=== PATIENT | female | born 1960 | race African-American/Black ===

== ENCOUNTER 2016-08-14 15:27 | Inpatient (IN) | payer OTHER ==
[~2016-08-14] VITALS: Ht 180.3 cm; Wt 69.9 kg
[~2016-08-14 15:27] MED LIST: ALPR0.5T PO; ALPR0.5T6 PO; AMLO10TA2 PO; AMLO5TAB2 PO; AMLO5TAB4 PO; AMOX500T PO; ASPI-482 PO; ATOR20TA PO; BISM262O20 PO; CALC-74 PO; CARV25TA2 PO; DIPH25CA49 PO; FLUC200T PO; GABA300C8 PO; HYDR-2678 PO; HYDR-2762 PO; HYDR100T24 PO; LABE200T24 PO; LOSA25TA4 PO; LOSA50TA2 PO; METO-269 PO; MORP30TA83 PO; OMEP20CA9 PO; OMEP20TA63 PO; OXYC-323 PO; OXYC15TA PO; OXYC15TA60 PO; PANT40TA3 PO; SERT50TA PO; TOPI25TA52 PO; WARF-78 PO; WARF1TAB74 PO; WARF2.5T83 PO; WARF3TAB7 PO; WARF5TAB7 PO; WARF7.5T48 PO
[2016-08-14 16:13] LABS: BASO # 0.1 x10^3/uL (0.0-0.2); BASO % 1 % (0-3); EOS % 2 % (0-3); HEMATOCRIT 35.6 % (36.0-47.0); HEMOGLOBIN 11.6 g/dL (12.0-15.5); LYMPH # 2.2 x10^3/uL (1.0-4.8); LYMPH % 40 % (24-48); MEAN CORPUSCULAR HEMOGLOBIN 29 pg (25-35); MEAN CORPUSCULAR HGB CONC 32 g/dL (31-37); MEAN CORPUSCULAR VOLUME 90 fL (79-100); MONO % 10 % (0-9); NEUT % 47 % (31-73); PLATELET COUNT 256 x10^3/uL (140-400); RED BLOOD COUNT 3.97 x10^6/uL (3.50-5.40); RED CELL DISTRIBUTION WIDTH 15.2 % (11.5-14.5); WHITE BLOOD COUNT 5.5 x10^3/uL (4.0-11.0)
--- NOTE | 2016-08-14 16:17 | RAD ---
Indication nontraumatic chest pain. A single view of the chest was obtained. Comparison is made to an examination 12/31/2015. Note is made of angiography of the chest 12/31/2015. Postoperative changes associated with the aorta are noted. 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 There is no congestive heart failure. There is no acute parenchymal infiltrate significant pleural fluid collection or pneumothorax. There has not been a significant change in the appearance of the chest compared to the previous exam. IMPRESSION: Chronic changes. No acute finding. No significant change
[2016-08-14 16:22] LABS: INR 1.7 (0.8-1.1); PROTHROMBIN TIME PATIENT 18.7 SEC (11.7-14.0)
[2016-08-14 16:26] LABS: CALCIUM 10.5 mg/dL (8.5-10.1); CREATININE 1.1 mg/dL (0.6-1.0); GFR 62.4; POTASSIUM 3.1 mmol/L (3.5-5.1)
[2016-08-14] MEDS: fentaNYL PF VIAL 100 MCG/2 ML VIAL IV PRN ×2 (16:47→19:46)
[2016-08-14] MEDS ORDERED: IOHEXOL 350 MG/ML 100 ML VIAL. ONE (17:42)
[2016-08-14] MEDS ORDERED: CONTRAST GIVEN MC PRN (17:45)
--- NOTE | 2016-08-14 17:57 | PHYS DOC ---
Past Medical History Past Medical History: Anemia, Anxiety, Arthritis, CAD, COPD, GERD, High Cholesterol, Heart Disease, Hypertension, Other Additional Past Medical Histor: AAA, mechanical heart valve,bulge disc(back), chronic back Past Surgical History: Hysterectomy, Other Additional Past Surgical Histo: mechanical valve,AAA repair 11/2013 Alcohol Use: None Drug Use: None Adult General Chief Complaint Chief Complaint: CHEST PAIN HPI HPI Patient is a 56 year old female who presents with left sided stabbing chest pain radiating to her left shoulder associated with some lightheadedness and nausea. States she also has a gradual onset headache that is mild and general. She denies vision changes, numbness, tingling, focal weakness, vomiting, fever or chills, cough, dyspnea, leg pain or swelling, palpitations, diaphoresis, orthopnea, abdominal pain, dysuria, hematuria, back pain. Review of Systems Review of Systems Constitutional: Denies fever or chills [] Eyes: Denies change in visual acuity, redness, or eye pain [] HENT: Denies nasal congestion or sore throat [] Respiratory: Denies cough or shortness of breath [] Cardiovascular: No additional information not addressed in HPI [] GI: Denies abdominal pain, vomiting, bloody stools or diarrhea [] : Denies dysuria or hematuria [] Musculoskeletal: Denies back pain or joint pain [] Integument: Denies rash or skin lesions [] Neurologic: Denies focal weakness or sensory changes [] Endocrine: Denies polyuria or polydipsia [] Current Medications Current Medications Current Medications Medications (Trade) Dose Ordered Sig/[facility] Start Time Stop Time Status Last Admin Dose Admin Fentanyl Citrate (Fentanyl 2ml Vial) 50 mcg PRN Q15MIN PRN 08/14/16 16:00 08/14/16 20:00 DC 08/14/16 19:46 50 MCG Info (Do NOT chart on this entry -- for MONITORING) 1 each PRN DAILY PRN 08/14/16 17:45 08/16/16 17:44 Iohexol (Omnipaque 350 Mg/ml) 100 ml STK-MED ONCE 08/14/16 17:42 08/14/16 17:43 DC Potassium Chloride (Klor-Con) 40 meq 1X ONCE 08/14/16 19:00 08/14/16 19:01 DC 08/14/16 19:08 40 MEQ Allergies Allergies Allergies Coded Allergies Type Severity Reaction Last Updated Verified No Known Drug Allergies 12/10/13 No Physical Exam Physical Exam Constitutional: Well developed, well nourished, no acute distress, non-toxic appearance. [] HENT: Normocephalic, atraumatic, bilateral external ears normal, oropharynx moist, no oral exudates, nose normal. [] Eyes: PERRLA, EOMI. [] Neck: Normal range of motion, supple. [] Cardiovascular:Heart rate regular rhythm [] Lungs & Thorax: Bilateral breath sounds clear to auscultation. No chest wall tenderness [] Abdomen: Bowel sounds normal, soft, no tenderness. [] Skin: Warm, dry, no erythema, no rash. [] Back: No tenderness, no CVA tenderness. [] Extremities: No tenderness, ROM intact, no edema. [] Neurologic: Alert and oriented X 3, normal motor function, normal sensory function, no focal deficits noted. [] Psychologic: Affect normal, judgement normal, mood normal. [] Current Patient Data Vital Signs Vital Signs Date Time Temp Pulse Resp B/P (MAP) Pulse Ox O2 Delivery O2 Flow Rate FiO2 08/14/16 16:47 66 18 151/78 (102) 98 Room Air 08/14/16 15:46 98.7 98.7 Lab Values Laboratory Tests Test 08/14/16 16:00 White Blood Count 5.5 x10^3/uL (4.0-11.0) Red Blood Count 3.97 x10^6/uL (3.50-5.40) Hemoglobin 11.6 g/dL (12.0-15.5) L Hematocrit 35.6 % (36.0-47.0) L Mean Corpuscular Volume 90 fL (79-100) Mean Corpuscular Hemoglobin 29 pg (25-35) Mean Corpuscular Hemoglobin Concent 32 g/dL (31-37) Red Cell Distribution Width 15.2 % (11.5-14.5) H Platelet Count 256 x10^3/uL (140-400) Neutrophils (%) (Auto) 47 % (31-73) Lymphocytes (%) (Auto) 40 % (24-48) Monocytes (%) (Auto) 10 % (0-9) H Eosinophils (%) (Auto) 2 % (0-3) Basophils (%) (Auto) 1 % (0-3) Neutrophils # (Auto) 2.6 x10^3uL (1.8-7.7) Lymphocytes # (Auto) 2.2 x10^3/uL (1.0-4.8) Monocytes # (Auto) 0.6 x10^3/uL (0.0-1.1) Eosinophils # (Auto) 0.1 x10^3/uL (0.0-0.7) Basophils # (Auto) 0.1 x10^3/uL (0.0-0.2) Prothrombin Time 18.7 SEC (11.7-14.0) H Prothrombin Time INR 1.7 (0.8-1.1) H Sodium Level 142 mmol/L (136-145) Potassium Level 3.1 mmol/L (3.5-5.1) L Chloride Level 105 mmol/L (98-107) Carbon Dioxide Level 30 mmol/L (21-32) Anion Gap 7 (6-14) Blood Urea Nitrogen 10 mg/dL (7-20) Creatinine 1.1 mg/dL (0.6-1.0) H Estimated GFR (Cockcroft-Gault) 62.4 Glucose Level 114 mg/dL (70-99) H Calcium Level 10.5 mg/dL (8.5-10.1) H Troponin I Quantitative < 0.017 ng/mL (0.000-0.055) KJ-Owl-I-Type Natriuretic Peptide 814 pg/mL (0-124) H Laboratory Tests 08/14/16 16:00 Laboratory Tests 08/14/16 16:00 EKG EKG EKG as interpreted by me as normal sinus rhythm, rate 80, no ST-T changes, normal intervals, no ectopy Radiology/Procedures Radiology/Procedures Chest xray as interpreted by me with no acute cardiopulmonary disease process CT angiogram chest IMPRESSION: No change in size or appearance of the [place] a aortic dissection when compared to the previous exam from 12/31/2015. CT angiogram of abdomen and pelvis IMPRESSION: Unchanged size and appearance of the abdominal aortic dissection when compared to the previous exam from 12/31/2015. Diffuse fatty infiltration of the liver. No ascites or inflammatory mass. Electronically signed by: Stan Mckenna MD (08/14/2016 6:43 PM) Course & Med Decision Making Course & Med Decision Making Pertinent Labs and Imaging studies reviewed. (See chart for details) Workup is largely unremarkable other than subtherapeutic INR and positive UDS. Will admit for ACS rule out. Discussed case with Dr. Fletcher, who will admit under observation. Cardiology consultation placed. Jaky Disclaimer Dragon Disclaimer This electronic medical record was generated, in whole or in part, using a voice recognition dictation system. Departure Departure Impression: Primary Impression: Chest pain Additional Impressions: Subtherapeutic international normalized ratio (INR) Substance abuse Disposition: ADMITTED INPATIENT Condition: STABLE Referrals: TARYN GALAVIZ MD (PCP) Problem Qualifiers Primary Impression: Chest pain Chest pain type: unspecified Qualified Codes: R07.9 - Chest pain, unspecified Charlotte ALMENDAREZ MD Aug 14, 2016 17:57
[2016-08-14] MEDS ORDERED: IOHEXOL 350 MG/ML 100 ML VIAL. IV ONE (18:00)
--- NOTE | 2016-08-14 18:46 | RAD ---
PQRS STATEMENT: One or more of the following in the visualized dose reduction techniques were utilized for this study: 1. Automatic exposure control, 2. Adjustment of the mA and/or kV according to patient size, 3. Use of iterative reconstruction technique CT angiogram of the chest Indication: chest pain; h/o dissection; Omni 350, 90ml Comparison: 12/31/2015 CT angiogram of the chest Technique: Multiple contiguous axial images were obtained through the chest after administration of iodinated contrast. Coronal and sagittal MIP reformations were created. Findings: There is no change in size or appearance of the [place] a aortic dissection when compared to the previous exam from 12/31/2015. There are postsurgical changes at the proximal aspect of the dissection which is just proximal to the origin of the brachiocephalic artery. The dissection does extend into all 3 great vessels which is unchanged. The descending thoracic aorta is ectatic. There is no pericardial effusion. Valve prosthesis is in place. No pneumothorax or pleural effusion. No consolidation. IMPRESSION: No change in size or appearance of the [place] a aortic dissection when compared to the previous exam from 12/31/2015. End impression CTA ABDOMEN/PELVIS Indication: chest pain; h/o dissection; Omni 350, 90ml Technique: Multiple contiguous axial images were obtained through the abdomen and pelvis after administration of intravenous iodinated contrast. Coronal and sagittal MIP reformations were created. Comparison: 12/31/2015 Findings: There is no change in size or appearance of the abdominal aortic dissection. The dissection is again noted to extend into the superior mesenteric artery which is predominantly fed by the false lumen. The true lumen appears to feed the celiac. The true lumen also supplies the right renal artery corrected is indeterminant which lumen supplies the left as the dissection stops at the left renal artery origin. There is focal ectasia of the suprarenal abdominal aorta. There is an unchanged large right hepatic lobe cyst. There is diffuse fatty infiltration of liver. The gallbladder, pancreas, spleen, and adrenal glands are unremarkable. Small cortical cysts are noted in both kidneys. There is no ascites or inflammatory mass. Urinary bladder is within normal limits. IMPRESSION: Unchanged size and appearance of the abdominal aortic dissection when compared to the previous exam from 12/31/2015. Diffuse fatty infiltration of the liver. No ascites or inflammatory mass. Electronically signed by: Stan Mckenna MD (08/14/2016 6:43 PM)
[2016-08-14] MEDS ORDERED: POTASSIUM CHLORIDE 20 MEQ TABLET.ER. PO ONE (19:00)
[2016-08-14] MEDS ORDERED: NITROGLYCERIN SUBLINGUAL 0.4 MG BOTTLE OF 25. SL PRN (19:15)
[2016-08-14] MEDS ORDERED: ONDANSETRON PF 4 MG/2 ML VIAL. IV PRN ×2 (19:15→21:45)
[2016-08-14] MEDS ORDERED: fentaNYL PF VIAL 100 MCG/2 ML VIAL IV PRN (19:15)
[2016-08-14] MEDS ORDERED: ACETAMINOPHEN 325 MG TABLET. PO PRN ×2 (19:15→21:45)
[2016-08-14 20:28] VITALS: BP 145/77
[2016-08-14 20:30] LABS: BARBITURATES NEG (NEG); BENZODIAZEPINES POS (NEG); CANNABINOIDS NEG (NEG); COCAINE POS (NEG); METHADONE NEG (NEG); OPIATES POS (NEG); PHENCYCLIDINE NEG (NEG)
[2016-08-14] MEDS ORDERED: hydrALAZINE 20 MG/ML VIAL. IVP PRN (21:45)
[2016-08-14] MEDS ORDERED: ALBUTEROL SULFATE 2.5 MG/3 ML NEBU. NEB PRN (21:45)
[2016-08-14] MEDS ORDERED: ATOR20TA58 PO (21:46)
[2016-08-14] MEDS ORDERED: WARF5TAB7 PO (21:46)
[2016-08-14] MEDS ORDERED: ALPR1TAB6 PO (21:46)
[2016-08-14] MEDS ORDERED: LOSA50TA6 PO (21:46)
[2016-08-14] MEDS ORDERED: METO25TA4 PO (21:46)
[2016-08-14] MEDS ORDERED: ZOLP10TA4 PO (21:46)
[2016-08-14] MEDS ORDERED: ZOLPIDEM 5 MG TABLET. ONE (22:00)
[2016-08-14 22:07] VITALS: BP 103/57
[2016-08-14] MEDS: ZOLPIDEM 5 MG TABLET. PO PRN (22:29)
[2016-08-14] MEDS: ATORVASTATIN CALCIUM 20 MG TABLET PO SCH (22:29)
[2016-08-14] MEDS: SERTRALINE 50 MG TABLET. PO SCH (22:29)
[2016-08-14] MEDS: ALPRAZolam 1 MG TABLET PO PRN (22:29)
[2016-08-14] MEDS: TOPIRAMATE 25 MG TABLET. PO SCH (22:29)
[2016-08-14] MEDS ORDERED: WARFARIN 7.5 MG TABLET. PO ONE (22:30)
[2016-08-14] MEDS ORDERED: ASPIRIN CHEWABLE 81 MG TABLET. PO ONE (22:30)
[2016-08-15] VITALS (8 sets, daily range): BP systolic 107–134; BP diastolic 59–74
[2016-08-15 05:37] LABS: BASO % 1 % (0-3); EOS % 3 % (0-3); HEMATOCRIT 32.4 % (36.0-47.0); HEMOGLOBIN 10.9 g/dL (12.0-15.5); LYMPH # 2.7 x10^3/uL (1.0-4.8); LYMPH % 52 % (24-48); MEAN CORPUSCULAR HEMOGLOBIN 30 pg (25-35); MEAN CORPUSCULAR HGB CONC 34 g/dL (31-37); MEAN CORPUSCULAR VOLUME 88 fL (79-100); MONO % 10 % (0-9); NEUT % 34 % (31-73); PLATELET COUNT 240 x10^3/uL (140-400); RED BLOOD COUNT 3.68 x10^6/uL (3.50-5.40); RED CELL DISTRIBUTION WIDTH 15.2 % (11.5-14.5); WHITE BLOOD COUNT 5.1 x10^3/uL (4.0-11.0)
[2016-08-15 05:56] LABS: CALCIUM 10.2 mg/dL (8.5-10.1); CREATININE 1.1 mg/dL (0.6-1.0); GFR 62.4; POTASSIUM 3.9 mmol/L (3.5-5.1)
--- NOTE | 2016-08-15 12:08 | PDOC1 ---
History and Physical Past Medical History Cardiovascular: CAD, HTN, Hyperlipidemia, Other Pulmonary: COPD CENTRAL NERVOUS SYSTEM: TIA GI: GERD Heme/Onc: Anemia NOS Hepatobiliary: No pertinent hx Psych: Anxiety Rheumatologic: Gout Infectious disease: No pertinent hx Renal/: Other Endocrine: No pertinent hx Past Surgical History Past Surgical History: Hysterectomy, Other Family History Family History: Cancer, Diabetes, Hypertension Social History ALCOHOL: none Drugs: None Current Problem List Problem List Problems Medical Problems: (1) Chest pain Status: Acute (2) Substance abuse Status: Acute (3) Subtherapeutic international normalized ratio (INR) Status: Acute Current Medications Current Medications Current Medications Medications (Trade) Dose Ordered Sig/Mario Alberto Start Time Stop Time Status Last Admin Dose Admin Acetaminophen (Tylenol) 325 mg PRN Q6HRS PRN 08/14/16 21:45 Acetaminophen/ Hydrocodone Bitart (Lortab 5/325) 1 tab PRN Q6HRS PRN 08/14/16 21:45 Albuterol Sulfate (Ventolin Neb Soln) 2.5 mg PRN Q4HRS PRN 08/14/16 21:45 Alprazolam (Xanax) 1 mg PRN TID PRN 08/14/16 22:15 08/14/16 22:29 1 MG Aspirin (Children'S Aspirin) 324 mg 1X ONCE 08/14/16 22:30 08/14/16 22:31 DC 08/14/16 22:28 324 MG Atorvastatin Calcium (Lipitor) 20 mg QHS 08/14/16 23:00 08/14/16 22:29 20 MG Enoxaparin Sodium (Lovenox 60mg Syringe) 65 mg 1X ONCE 08/15/16 12:15 08/15/16 12:16 UNV Enoxaparin Sodium (Lovenox Per Pharmacy Treatment Dosing) 1 each PRN DAILY PRN 08/15/16 12:15 UNV Fentanyl Citrate (Fentanyl 2ml Vial) 50 mcg PRN Q2HR PRN 08/14/16 19:15 08/15/16 19:14 Hydralazine HCl (Apresoline) 100 mg BID 08/14/16 23:00 08/15/16 10:31 100 MG Info (Do NOT chart on this entry -- for MONITORING) 1 each PRN DAILY PRN 08/14/16 17:45 08/16/16 17:44 Iohexol (Omnipaque 350 Mg/ml) 100 ml STK-MED ONCE 08/14/16 17:42 08/14/16 17:43 DC Nitroglycerin (Nitrostat) 0.4 mg PRN Q5MIN PRN 08/14/16 19:15 08/15/16 19:14 Ondansetron HCl (Zofran) 4 mg PRN Q8HRS PRN 08/14/16 21:45 Potassium Chloride (Klor-Con) 40 meq 1X ONCE 08/14/16 19:00 08/14/16 19:01 DC 08/14/16 19:08 40 MEQ Sertraline HCl (Zoloft) 50 mg QHS 08/14/16 23:00 08/14/16 22:29 50 MG Topiramate (Topamax) 25 mg QHS 08/14/16 23:00 08/14/16 22:29 25 MG Warfarin Sodium (Coumadin Per Pharmacy) 1 each PRN DAILY PRN 08/14/16 22:15 08/15/16 02:47 1 EACH Warfarin Sodium (Coumadin) 7.5 mg 1X ONCE 08/14/16 22:30 08/14/16 22:31 DC 08/14/16 22:29 7.5 MG Zolpidem Tartrate (Ambien) 5 mg PRN QHS PRN 08/14/16 22:15 08/14/16 22:29 5 MG Allergies Allergies Allergies Coded Allergies Type Severity Reaction Last Updated Verified No Known Drug Allergies 12/10/13 No ROS Review of System CONSTITUTIONAL: No fever or chills EYES: No recent changes SKIN: No rash or itching CARDIOVASCULAR: chest pain, NO syncope, palpitations, or edema RESPIRATORY: No SOB or cough GASTROINTESTINAL: No nausea, vomiting or abdominal pain NEUROLOGICAL: No headaches or weakness ENDOCRINE: No cold or heat intolerance GENITOURINARY: No urgency or frequency of urination MUSCULOSKELETAL: No back pain or joint pain LYMPHATICS: No enlarged lymph nodes PSYCHIATRIC: No anxiety or depression Physical Exam Physical Exam GEN.: No apparent distress. Alert and oriented. HEENT: Head is normocephalic, atraumatic NECK: Supple. NO JVD LUNGS: Clear to auscultation. HEART: RRR, S1, S2 present. Peripheral pulses intact CLICK ABDOMEN: Soft, nontender. Positive bowel sounds. EXTREMITIES: Without any cyanosis. NEUROLOGIC: Normal speech, normal tone PSYCHIATRIC: Normal affect, normal mood. SKIN: No ulcerations Vitals Vitals Vital Signs Date Time Temp Pulse Resp B/P (MAP) Pulse Ox O2 Delivery O2 Flow Rate FiO2 08/15/16 11:00 98.1 76 18 109/62 (78) 100 Room Air 98.1 Labs Labs Laboratory Tests Test 08/14/16 16:00 08/14/16 19:14 08/14/16 22:00 08/15/16 05:00 White Blood Count 5.5 x10^3/uL (4.0-11.0) 5.1 x10^3/uL (4.0-11.0) Red Blood Count 3.97 x10^6/uL (3.50-5.40) 3.68 x10^6/uL (3.50-5.40) Hemoglobin 11.6 g/dL (12.0-15.5) 10.9 g/dL (12.0-15.5) Hematocrit 35.6 % (36.0-47.0) 32.4 % (36.0-47.0) Mean Corpuscular Volume 90 fL (79-100) 88 fL (79-100) Mean Corpuscular Hemoglobin 29 pg (25-35) 30 pg (25-35) Mean Corpuscular Hemoglobin Concent 32 g/dL (31-37) 34 g/dL (31-37) Red Cell Distribution Width 15.2 % (11.5-14.5) 15.2 % (11.5-14.5) Platelet Count 256 x10^3/uL (140-400) 240 x10^3/uL (140-400) Neutrophils (%) (Auto) 47 % (31-73) 34 % (31-73) Lymphocytes (%) (Auto) 40 % (24-48) 52 % (24-48) Monocytes (%) (Auto) 10 % (0-9) 10 % (0-9) Eosinophils (%) (Auto) 2 % (0-3) 3 % (0-3) Basophils (%) (Auto) 1 % (0-3) 1 % (0-3) Neutrophils # (Auto) 2.6 x10^3uL (1.8-7.7) 1.7 x10^3uL (1.8-7.7) Lymphocytes # (Auto) 2.2 x10^3/uL (1.0-4.8) 2.7 x10^3/uL (1.0-4.8) Monocytes # (Auto) 0.6 x10^3/uL (0.0-1.1) 0.5 x10^3/uL (0.0-1.1) Eosinophils # (Auto) 0.1 x10^3/uL (0.0-0.7) 0.1 x10^3/uL (0.0-0.7) Basophils # (Auto) 0.1 x10^3/uL (0.0-0.2) 0.0 x10^3/uL (0.0-0.2) Prothrombin Time 18.7 SEC (11.7-14.0) Prothromb Time International Ratio 1.7 (0.8-1.1) Sodium Level 142 mmol/L (136-145) 142 mmol/L (136-145) Potassium Level 3.1 mmol/L (3.5-5.1) 3.9 mmol/L (3.5-5.1) Chloride Level 105 mmol/L (98-107) 107 mmol/L (98-107) Carbon Dioxide Level 30 mmol/L (21-32) 29 mmol/L (21-32) Anion Gap 7 (6-14) 6 (6-14) Blood Urea Nitrogen 10 mg/dL (7-20) 13 mg/dL (7-20) Creatinine 1.1 mg/dL (0.6-1.0) 1.1 mg/dL (0.6-1.0) Estimated GFR (Cockcroft-Gault) 62.4 62.4 Glucose Level 114 mg/dL (70-99) 106 mg/dL (70-99) Calcium Level 10.5 mg/dL (8.5-10.1) 10.2 mg/dL (8.5-10.1) Troponin I Quantitative < 0.017 ng/mL (0.000-0.055) < 0.017 ng/mL (0.000-0.055) < 0.017 ng/mL (0.000-0.055) KN-Zhi-K-Type Natriuretic Peptide 814 pg/mL (0-124) Urine Opiates Screen Pos (NEG) Urine Methadone Screen Neg (NEG) Urine Barbiturates Neg (NEG) Urine Phencyclidine Screen Neg (NEG) Urine Amphetamine/Methamphetamine Neg (NEG) Urine Benzodiazepines Screen Pos (NEG) Urine Cocaine Screen Pos (NEG) Urine Cannabinoids Screen Neg (NEG) Urine Ethyl Alcohol Neg (NEG) Laboratory Tests Test 08/14/16 16:00 08/14/16 19:14 08/14/16 22:00 08/15/16 05:00 White Blood Count 5.5 x10^3/uL (4.0-11.0) 5.1 x10^3/uL (4.0-11.0) Red Blood Count 3.97 x10^6/uL (3.50-5.40) 3.68 x10^6/uL (3.50-5.40) Hemoglobin 11.6 g/dL (12.0-15.5) 10.9 g/dL (12.0-15.5) Hematocrit 35.6 % (36.0-47.0) 32.4 % (36.0-47.0) Mean Corpuscular Volume 90 fL (79-100) 88 fL (79-100) Mean Corpuscular Hemoglobin 29 pg (25-35) 30 pg (25-35) Mean Corpuscular Hemoglobin Concent 32 g/dL (31-37) 34 g/dL (31-37) Red Cell Distribution Width 15.2 % (11.5-14.5) 15.2 % (11.5-14.5) Platelet Count 256 x10^3/uL (140-400) 240 x10^3/uL (140-400) Neutrophils (%) (Auto) 47 % (31-73) 34 % (31-73) Lymphocytes (%) (Auto) 40 % (24-48) 52 % (24-48) Monocytes (%) (Auto) 10 % (0-9) 10 % (0-9) Eosinophils (%) (Auto) 2 % (0-3) 3 % (0-3) Basophils (%) (Auto) 1 % (0-3) 1 % (0-3) Neutrophils # (Auto) 2.6 x10^3uL (1.8-7.7) 1.7 x10^3uL (1.8-7.7) Lymphocytes # (Auto) 2.2 x10^3/uL (1.0-4.8) 2.7 x10^3/uL (1.0-4.8) Monocytes # (Auto) 0.6 x10^3/uL (0.0-1.1) 0.5 x10^3/uL (0.0-1.1) Eosinophils # (Auto) 0.1 x10^3/uL (0.0-0.7) 0.1 x10^3/uL (0.0-0.7) Basophils # (Auto) 0.1 x10^3/uL (0.0-0.2) 0.0 x10^3/uL (0.0-0.2) Prothrombin Time 18.7 SEC (11.7-14.0) Prothromb Time International Ratio 1.7 (0.8-1.1) Sodium Level 142 mmol/L (136-145) 142 mmol/L (136-145) Potassium Level 3.1 mmol/L (3.5-5.1) 3.9 mmol/L (3.5-5.1) Chloride Level 105 mmol/L (98-107) 107 mmol/L (98-107) Carbon Dioxide Level 30 mmol/L (21-32) 29 mmol/L (21-32) Anion Gap 7 (6-14) 6 (6-14) Blood Urea Nitrogen 10 mg/dL (7-20) 13 mg/dL (7-20) Creatinine 1.1 mg/dL (0.6-1.0) 1.1 mg/dL (0.6-1.0) Estimated GFR (Cockcroft-Gault) 62.4 62.4 Glucose Level 114 mg/dL (70-99) 106 mg/dL (70-99) Calcium Level 10.5 mg/dL (8.5-10.1) 10.2 mg/dL (8.5-10.1) Troponin I Quantitative < 0.017 ng/mL (0.000-0.055) < 0.017 ng/mL (0.000-0.055) < 0.017 ng/mL (0.000-0.055) NW-Zge-V-Type Natriuretic Peptide 814 pg/mL (0-124) Urine Opiates Screen Pos (NEG) Urine Methadone Screen Neg (NEG) Urine Barbiturates Neg (NEG) Urine Phencyclidine Screen Neg (NEG) Urine Amphetamine/Methamphetamine Neg (NEG) Urine Benzodiazepines Screen Pos (NEG) Urine Cocaine Screen Pos (NEG) Urine Cannabinoids Screen Neg (NEG) Urine Ethyl Alcohol Neg (NEG) VTE Prophylaxis Ordered VTE Prophylaxis Devices: Yes VTE Pharmacological Prophylaxi: No KAYLEIGH ABNUELOS MD Aug 15, 2016 12:08
--- NOTE | 2016-08-15 12:27 | EKG ---
[facility] [address] [place] [address] Test Date: 2016-08-14 Test Time: 15:48:19 Pat Name: GINO CARLOS Department: Room: [facility] [place] Gender: F Tax Representative: : 1960 Requested By: Charlotte ALMENDAREZ Order Number: [id number] Reading MD: Luisa La Measurements Intervals Cyrus Rate: 80 P: 90 NC: 148 QRS: 46 QRSD: 82 T: 47 QT: 364 QTc: 423 Interpretive Statements SINUS RHYTHM LEFT ATRIAL ABNORMALITY ABNORMAL ECG Electronically Signed On 08-15-2016 21:20:02 CDT by Luisa La
[2016-08-15] MEDS: HYDROcodone/APAP 5/325MG 1 TAB TABLET PO PRN (12:50)
--- NOTE | 2016-08-15 13:16 | HP ---
ADMIT DATE: 08/15/2016 CHIEF COMPLAINT: Chest pain and headache. HISTORY OF THE PRESENT ILLNESS: A 56-year-old female patient with history of mechanical aortic valve, present to the ER with complaints of chest pain and headaches for one-day duration. The patient states chest pain is located at the center of the chest worse with breathing and better with rest; denies any exertional shortness of breath, palpitations or syncope. Her INR was not therapeutic because she was holding Coumadin due to supratherapeutic nature of the INR few days ago. This morning, the patient resting comfortably, her initial troponins were negative for NSTEMI. PAST MEDICAL HISTORY: Anemia, coronary artery disease, COPD, GERD, hyperlipidemia, hypertension, AAA repair, and mechanical heart valve. PAST SURGICAL HISTORY: Hysterectomy. PERSONAL HISTORY: No smoking, no alcohol, no drug abuse. FAMILY HISTORY: Coronary artery disease. REVIEW OF SYSTEMS: Please see my electronic H and P. PHYSICAL EXAMINATION: Please see my electronic H and P. LABORATORY FINDINGS: CBC: Hemoglobin is 10.0. MCV is 88. MCHC is 34. Platelets 240. Chemistry: Sodium 142, potassium 3.9, chloride is 107, carbon dioxide 29, anion gap is 6, BUN is 13, creatinine is 1.1, and troponin is less than 0.017 and ProBNP is 814. Toxicology is urine positive and opiates positive, rest of it is negative. Calcium 10.2. INR is 1.7. PT is 18.7. IMAGING DATA: EKG not able to obtain the report. As per the report, normal sinus rhythm. No acute ST-T wave changes seen. CT angiogram of the chest, diffuse fatty infiltration of the liver, unchanged size and appearance of the abdominal aortic dissection when compared to the previous exam. ASSESSMENT AND PLAN: 1. Chest pain; unclear etiology, gastritis versus pleuritic versus musculoskeletal nature. 2. Hypertension. 3. Hyperlipidemia. 4. Anemia. 5. Chronic obstructive pulmonary disease. 6. History of right-sided renal artery stenosis. 7. History of ascending aortic dissection with previous surgical repair and mechanical aortic valve replacement. PLAN: 1. The patient's chest pain is currently controlled. I will continue supportive care. Cardiology has been consulted. The patient's INR is not therapeutic. I will ask pharmacy to dose her Coumadin and at this time I will give Lovenox and recheck INR today. 2. Home medications reviewed and to consult if the patient's symptoms persist, probably stress test tomorrow. 3. P.r.n. hydralazine for high blood pressure. 4. Physical Therapy and Occupational Therapy. KAYLEIGH BANUELOS MD DR: HORTENCIA/ryan JOB#: [id number] / [id number] MASHA
[2016-08-15 13:22] LABS: INR 2.1 (0.8-1.1); PROTHROMBIN TIME PATIENT 22.2 SEC (11.7-14.0)
--- NOTE | 2016-08-15 15:19 | PDOC2 ---
CONSULT Date of Consult Date of Consult DATE: 08/15/16 TIME: 15:06 Reason for Consult Reason for Consult: Chest pain Referring Physician Referring Physician: Dr. Fletcher Identification/Chief Complaint Chief Complaint chest pain Source Source: Patient History of Present Illness Reason for Visit: The patient is a 56-year-old female with a history of an aortic valve replacement with a mechanical valve and aneurysm repair. The patient had a catheterization in February 2014 that showed mild disease with no lesions greater than 25%. She was admitted through the emergency room for episodes of chest discomfort. The patient states he's had been occurring occasionally the past several days. They are not associated with shortness of breath, dizziness or lightheadedness. She has been treated with monitored overnight and has been feeling much better. Troponins are negative 3. EKG shows a sinus rhythm with nonspecific ST-T wave changes. Chest x-ray shows no acute changes. CT scan of the chest shows unchanged size and appearance of the patient's aneurysm compared to December 302015. Past Medical History Cardiovascular: CAD, HTN, Hyperlipidemia, Other Pulmonary: COPD CENTRAL NERVOUS SYSTEM: TIA GI: GERD Heme/Onc: Anemia NOS Hepatobiliary: No pertinent hx Psych: Anxiety Musculoskeletal: low back pain, Osteoarthritis Rheumatologic: Gout Infectious disease: No pertinent hx Renal/: Other Endocrine: No pertinent hx Past Surgical History Past Surgical History: Hysterectomy, Other (mechanical aortic valve and aneurysm repair) Family History Family History: Cancer, Diabetes, Hypertension Social History ALCOHOL: none Drugs: None Lives: with Family Current Problem List Problem List Problems Medical Problems: (1) Chest pain Status: Acute (2) Substance abuse Status: Acute (3) Subtherapeutic international normalized ratio (INR) Status: Acute Current Medications Current Medications Current Medications Fentanyl Citrate (Fentanyl 2ml Vial) 50 mcg PRN Q15MIN PRN IV pain for 3 doses Last administered on 08/14/16 19:46; Start 08/14/16 at 16:00; Stop 08/14/16 at 20:00; Status DC Iohexol (Omnipaque 350 Mg/ml) 90 ml 1X ONCE IV Last administered on 08/14/16 18:18; Start 08/14/16 at 18:00; Stop 08/14/16 at 18:01; Status DC Info (Do NOT chart on this entry -- for MONITORING) 1 each PRN DAILY PRN MC SEE COMMENTS; Start 08/14/16 at 17:45; Stop 08/16/16 at 17:44 Iohexol (Omnipaque 350 Mg/ml) 100 ml STK-MED ONCE .ROUTE ; Start 08/14/16 at 17: 42; Stop 08/14/16 at 17:43; Status DC Potassium Chloride (Klor-Con) 40 meq 1X ONCE PO Last administered on 19:08; Start 08/14/16 at 19:00; Stop 08/14/16 at 19:01; Status DC Ondansetron HCl (Zofran) 4 mg PRN Q8HRS PRN IV NAUSEA/VOMITING Last administered on 08/14/16 19:45; Start 08/14/16 at 19:15; Stop 08/14/16 at 21:44 ; Status DC Fentanyl Citrate (Fentanyl 2ml Vial) 50 mcg PRN Q2HR PRN IV PAIN; Start at 19:15; Stop 08/15/16 at 19:14 Acetaminophen (Tylenol) 650 mg PRN Q4HRS PRN PO FEVER; Start 08/14/16 at 19:15 ; Stop 08/14/16 at 21:45; Status DC Nitroglycerin (Nitrostat) 0.4 mg PRN Q5MIN PRN SL CHEST PAIN; Start 08/14/16 at 19:15; Stop 08/15/16 at 19:14 Acetaminophen (Tylenol) 325 mg PRN Q6HRS PRN PO MILD PAIN / TEMP; Start at 21:45 Acetaminophen/ Hydrocodone Bitart (Lortab 5/325) 1 tab PRN Q6HRS PRN PO MODERATE TO SEVERE PAIN Last administered on 08/15/16 12:50; Start 08/14/16 at 21:45 Hydralazine HCl (Apresoline) 10 mg PRN Q4HRS PRN IVP ELEVATED BP, SEE COMMENTS ; Start 08/14/16 at 21:45 Ondansetron HCl (Zofran) 4 mg PRN Q8HRS PRN IV NAUSEA/VOMITING Last administered on 08/15/16 12:54; Start 08/14/16 at 21:45 Albuterol Sulfate (Ventolin Neb Soln) 2.5 mg PRN Q4HRS PRN NEB SHORTNESS OF BREATH; Start 08/14/16 at 21:45 Alprazolam (Xanax) 1 mg PRN TID PRN PO ANXIETY Last administered on 08/14/16 22:29; Start 08/14/16 at 22:15 Atorvastatin Calcium (Lipitor) 20 mg QHS PO Last administered on 08/14/16 22: 29; Start 08/14/16 at 23:00 Sertraline HCl (Zoloft) 50 mg QHS PO Last administered on 08/14/16 22:29; Start 08/14/16 at 23:00 Topiramate (Topamax) 25 mg QHS PO Last administered on 08/14/16 22:29; Start 08/14/16 at 23:00 Hydralazine HCl (Apresoline) 100 mg BID PO Last administered on 08/15/16 10:31 ; Start 08/14/16 at 23:00 Zolpidem Tartrate (Ambien) 5 mg PRN QHS PRN PO INSOMNIA, MAY REPEAT X1 Last administered on 08/14/16 22:29; Start 08/14/16 at 22:15 Aspirin (Children'S Aspirin) 324 mg 1X ONCE PO Last administered on 08/14/16 22:28; Start 08/14/16 at 22:30; Stop 08/14/16 at 22:31; Status DC Warfarin Sodium (Coumadin Per Pharmacy) 1 each PRN DAILY PRN MC SEE COMMENTS Last administered on 08/15/16 14:11; Start 08/14/16 at 22:15 Warfarin Sodium (Coumadin) 7.5 mg 1X ONCE PO Last administered on 08/14/16 22 :29; Start 08/14/16 at 22:30; Stop 08/14/16 at 22:31; Status DC Enoxaparin Sodium (Lovenox Per Pharmacy Treatment Dosing) 1 each PRN DAILY PRN MC SEE COMMENTS; Start 08/15/16 at 12:15; Status Cancel Enoxaparin Sodium (Lovenox 80mg Syringe) 70 mg Q12HR SQ ; Start 08/15/16 at 12: 30; Status Cancel Enoxaparin Sodium (Lovenox 80mg Syringe) 70 mg 1X ONCE SQ ; Start 08/15/16 at 14:30; Stop 08/15/16 at 14:31; Status DC Warfarin Sodium (Coumadin) 7.5 mg 1X WARF ONCE PO ; Start 08/15/16 at 16:00; Stop 08/15/16 at 16:01 Active Scripts Active Topamax (Topiramate) 25 Mg Tablet 1 Tab PO QHS Zoloft (Sertraline Hcl) 50 Mg Tablet 50 Mg PO QHS Reported Metoprolol Tartrate 25 Mg Tablet 25 Mg PO BID Atorvastatin Calcium 20 Mg Tablet 20 Mg PO QHS Losartan Potassium 50 Mg Tablet 50 Mg PO DAILY Zolpidem Tartrate 10 Mg Tablet 10 Mg PO PRN QHS PRN Warfarin Sodium 5 Mg Tablet 5 Mg PO DAILY16 Alprazolam 1 Mg Tablet 1 Mg PO PRN TID PRN Hydralazine Hcl 100 Mg Tablet 100 Mg PO BID Percocet 5-325 Mg Tablet (Oxycodone/Acetaminophen) 1 Each Tablet 1 Tab PO PRN Q6HRS PRN Protonix (Pantoprazole Sodium) 40 Mg Tablet. 1 Tab PO DAILY Aspir 81 (Aspirin) 81 Mg Tablet. 81 Mg PO DAILY Allergies Allergies: Coded Allergies: No Known Drug Allergies (Unverified , 12/10/13) ROS Respiratory: YES: SOB with excertion Cardiovascular: yes Chest Pain Physical Exam General: No acute distress HEENT: Atraumatic Lungs: Clear to auscultation Heart: Regular rate Abdomen: Normal bowel sounds Extremities: No clubbing Vitals VITALS Vital Signs Date Time Temp Pulse Resp B/P (MAP) Pulse Ox O2 Delivery O2 Flow Rate FiO2 08/15/16 14:10 Room Air 08/15/16 12:06 81 110/61 (77) 08/15/16 11:00 98.1 18 100 98.1 Labs Labs Laboratory Tests Test 08/14/16 16:00 08/14/16 19:14 08/14/16 22:00 08/15/16 05:00 White Blood Count 5.5 x10^3/uL (4.0-11.0) 5.1 x10^3/uL (4.0-11.0) Red Blood Count 3.97 x10^6/uL (3.50-5.40) 3.68 x10^6/uL (3.50-5.40) Hemoglobin 11.6 g/dL (12.0-15.5) 10.9 g/dL (12.0-15.5) Hematocrit 35.6 % (36.0-47.0) 32.4 % (36.0-47.0) Mean Corpuscular Volume 90 fL (79-100) 88 fL (79-100) Mean Corpuscular Hemoglobin 29 pg (25-35) 30 pg (25-35) Mean Corpuscular Hemoglobin Concent 32 g/dL (31-37) 34 g/dL (31-37) Red Cell Distribution Width 15.2 % (11.5-14.5) 15.2 % (11.5-14.5) Platelet Count 256 x10^3/uL (140-400) 240 x10^3/uL (140-400) Neutrophils (%) (Auto) 47 % (31-73) 34 % (31-73) Lymphocytes (%) (Auto) 40 % (24-48) 52 % (24-48) Monocytes (%) (Auto) 10 % (0-9) 10 % (0-9) Eosinophils (%) (Auto) 2 % (0-3) 3 % (0-3) Basophils (%) (Auto) 1 % (0-3) 1 % (0-3) Neutrophils # (Auto) 2.6 x10^3uL (1.8-7.7) 1.7 x10^3uL (1.8-7.7) Lymphocytes # (Auto) 2.2 x10^3/uL (1.0-4.8) 2.7 x10^3/uL (1.0-4.8) Monocytes # (Auto) 0.6 x10^3/uL (0.0-1.1) 0.5 x10^3/uL (0.0-1.1) Eosinophils # (Auto) 0.1 x10^3/uL (0.0-0.7) 0.1 x10^3/uL (0.0-0.7) Basophils # (Auto) 0.1 x10^3/uL (0.0-0.2) 0.0 x10^3/uL (0.0-0.2) Prothrombin Time 18.7 SEC (11.7-14.0) Prothromb Time International Ratio 1.7 (0.8-1.1) Sodium Level 142 mmol/L (136-145) 142 mmol/L (136-145) Potassium Level 3.1 mmol/L (3.5-5.1) 3.9 mmol/L (3.5-5.1) Chloride Level 105 mmol/L (98-107) 107 mmol/L (98-107) Carbon Dioxide Level 30 mmol/L (21-32) 29 mmol/L (21-32) Anion Gap 7 (6-14) 6 (6-14) Blood Urea Nitrogen 10 mg/dL (7-20) 13 mg/dL (7-20) Creatinine 1.1 mg/dL (0.6-1.0) 1.1 mg/dL (0.6-1.0) Estimated GFR (Cockcroft-Gault) 62.4 62.4 Glucose Level 114 mg/dL (70-99) 106 mg/dL (70-99) Calcium Level 10.5 mg/dL (8.5-10.1) 10.2 mg/dL (8.5-10.1) Troponin I Quantitative < 0.017 ng/mL (0.000-0.055) < 0.017 ng/mL (0.000-0.055) < 0.017 ng/mL (0.000-0.055) [id number] Natriuretic Peptide 814 pg/mL (0-124) Urine Opiates Screen Pos (NEG) Urine Methadone Screen Neg (NEG) Urine Barbiturates Neg (NEG) Urine Phencyclidine Screen Neg (NEG) Urine Amphetamine/Methamphetamine Neg (NEG) Urine Benzodiazepines Screen Pos (NEG) Urine Cocaine Screen Pos (NEG) Urine Cannabinoids Screen Neg (NEG) Urine Ethyl Alcohol Neg (NEG) Test 08/15/16 12:55 Prothrombin Time 22.2 SEC (11.7-14.0) Prothromb Time International Ratio 2.1 (0.8-1.1) Laboratory Tests Test 08/14/16 16:00 08/14/16 19:14 08/14/16 22:00 08/15/16 05:00 White Blood Count 5.5 x10^3/uL (4.0-11.0) 5.1 x10^3/uL (4.0-11.0) Red Blood Count 3.97 x10^6/uL (3.50-5.40) 3.68 x10^6/uL (3.50-5.40) Hemoglobin 11.6 g/dL (12.0-15.5) 10.9 g/dL (12.0-15.5) Hematocrit 35.6 % (36.0-47.0) 32.4 % (36.0-47.0) Mean Corpuscular Volume 90 fL (79-100) 88 fL (79-100) Mean Corpuscular Hemoglobin 29 pg (25-35) 30 pg (25-35) Mean Corpuscular Hemoglobin Concent 32 g/dL (31-37) 34 g/dL (31-37) Red Cell Distribution Width 15.2 % (11.5-14.5) 15.2 % (11.5-14.5) Platelet Count 256 x10^3/uL (140-400) 240 x10^3/uL (140-400) Neutrophils (%) (Auto) 47 % (31-73) 34 % (31-73) Lymphocytes (%) (Auto) 40 % (24-48) 52 % (24-48) Monocytes (%) (Auto) 10 % (0-9) 10 % (0-9) Eosinophils (%) (Auto) 2 % (0-3) 3 % (0-3) Basophils (%) (Auto) 1 % (0-3) 1 % (0-3) Neutrophils # (Auto) 2.6 x10^3uL (1.8-7.7) 1.7 x10^3uL (1.8-7.7) Lymphocytes # (Auto) 2.2 x10^3/uL (1.0-4.8) 2.7 x10^3/uL (1.0-4.8) Monocytes # (Auto) 0.6 x10^3/uL (0.0-1.1) 0.5 x10^3/uL (0.0-1.1) Eosinophils # (Auto) 0.1 x10^3/uL (0.0-0.7) 0.1 x10^3/uL (0.0-0.7) Basophils # (Auto) 0.1 x10^3/uL (0.0-0.2) 0.0 x10^3/uL (0.0-0.2) Prothrombin Time 18.7 SEC (11.7-14.0) Prothromb Time International Ratio 1.7 (0.8-1.1) Sodium Level 142 mmol/L (136-145) 142 mmol/L (136-145) Potassium Level 3.1 mmol/L (3.5-5.1) 3.9 mmol/L (3.5-5.1) Chloride Level 105 mmol/L (98-107) 107 mmol/L (98-107) Carbon Dioxide Level 30 mmol/L (21-32) 29 mmol/L (21-32) Anion Gap 7 (6-14) 6 (6-14) Blood Urea Nitrogen 10 mg/dL (7-20) 13 mg/dL (7-20) Creatinine 1.1 mg/dL (0.6-1.0) 1.1 mg/dL (0.6-1.0) Estimated GFR (Cockcroft-Gault) 62.4 62.4 Glucose Level 114 mg/dL (70-99) 106 mg/dL (70-99) Calcium Level 10.5 mg/dL (8.5-10.1) 10.2 mg/dL (8.5-10.1) Troponin I Quantitative < 0.017 ng/mL (0.000-0.055) < 0.017 ng/mL (0.000-0.055) < 0.017 ng/mL (0.000-0.055) [id number]-Type Natriuretic Peptide 814 pg/mL (0-124) Urine Opiates Screen Pos (NEG) Urine Methadone Screen Neg (NEG) Urine Barbiturates Neg (NEG) Urine Phencyclidine Screen Neg (NEG) Urine Amphetamine/Methamphetamine Neg (NEG) Urine Benzodiazepines Screen Pos (NEG) Urine Cocaine Screen Pos (NEG) Urine Cannabinoids Screen Neg (NEG) Urine Ethyl Alcohol Neg (NEG) Test 08/15/16 12:55 Prothrombin Time 22.2 SEC (11.7-14.0) Prothromb Time International Ratio 2.1 (0.8-1.1) Images Images Chest x-ray shows no acute changes. CT scan shows unchanged size and appearance of aneurysm compared to study of Assessment/Plan Assessment/Plan 1. Chest discomfort. Patient is feeling better. Troponin levels are normal 3. Patient has no acute ischemic EKG changes. Patient does have a history of mild coronary artery disease. CT scan shows unchanged size and appearance of her aneurysm. At this time will continue present treatments. We'll check an echocardiogram. We'll gradually increase activities. 2. Mechanical aortic valve. Echocardiogram to evaluate. 3. Status post aneurysm repair. Unchanged on CT scan as above. 4. Mild coronary artery disease. Continue medical treatment. 5. Hypertension. Adjust medications as needed. 6. Hyperlipidemia. Continue statin and check a lipid panel. Thank you for allowing us to participate in the care of your patient. FAIZAN AMARO MD Aug 15, 2016 15:19
[2016-08-15] MEDS ORDERED: WARFARIN 7.5 MG TABLET. PO ONE (16:00)
[2016-08-15] MEDS: SERTRALINE 50 MG TABLET. PO SCH (20:47)
[2016-08-15] MEDS: TOPIRAMATE 25 MG TABLET. PO SCH (20:47)
[2016-08-15] MEDS: ATORVASTATIN CALCIUM 20 MG TABLET PO SCH (20:47)
[2016-08-15] MEDS ORDERED: ZOLPIDEM 5 MG TABLET. ONE (23:00)
[2016-08-15] MEDS: ZOLPIDEM 5 MG TABLET. PO PRN (23:17)
[2016-08-15] MEDS: ALPRAZolam 1 MG TABLET PO PRN (23:17)
[2016-08-16 02:58] VITALS: BP 104/61
[2016-08-16 03:16] LABS: BASO # 0.1 x10^3/uL (0.0-0.2); BASO % 1 % (0-3); EOS % 3 % (0-3); HEMATOCRIT 33.5 % (36.0-47.0); HEMOGLOBIN 10.8 g/dL (12.0-15.5); LYMPH # 2.8 x10^3/uL (1.0-4.8); LYMPH % 51 % (24-48); MEAN CORPUSCULAR HEMOGLOBIN 29 pg (25-35); MEAN CORPUSCULAR HGB CONC 32 g/dL (31-37); MEAN CORPUSCULAR VOLUME 90 fL (79-100); MONO % 9 % (0-9); NEUT % 36 % (31-73); PLATELET COUNT 231 x10^3/uL (140-400); RED BLOOD COUNT 3.74 x10^6/uL (3.50-5.40); RED CELL DISTRIBUTION WIDTH 15.2 % (11.5-14.5); WHITE BLOOD COUNT 5.4 x10^3/uL (4.0-11.0)
[2016-08-16 03:24] LABS: CREATININE 0.9 mg/dL (0.6-1.0); GFR 78.7; POTASSIUM 3.6 mmol/L (3.5-5.1)
[2016-08-16 03:26] LABS: INR 2.4 (0.8-1.1); PROTHROMBIN TIME PATIENT 24.3 SEC (11.7-14.0)
[2016-08-16 03:34] LABS: CHOLESTEROL/HDL RATIO 2.9
[2016-08-16 07:48] VITALS: BP 133/80
--- NOTE | 2016-08-16 10:43 | PDOC ---
PROGRESS NOTES Chief Complaint Chief Complaint cc: chest pain A/P 1. Chest pain; unclear etiology, gastritis versus pleuritic versus musculoskeletal nature: Troponin negative, cardiology following, Echo pending. 2. Hypertension. 3. Hyperlipidemia. 4. Anemia. 5. Chronic obstructive pulmonary disease. 6. History of right-sided renal artery stenosis. 7. History of ascending aortic dissection with previous surgical repair and mechanical aortic valve replacement: on Warfarin, today INR 2.4, S/P LOVENOX yesterday. History of Present Illness History of Present Illness no chest pain no fever no chills no acute events. Vitals Vitals Vital Signs Date Time Temp Pulse Resp B/P (MAP) Pulse Ox O2 Delivery O2 Flow Rate FiO2 08/16/16 07:48 97.5 93 19 133/80 (97) 96 Room Air 97.5 Physical Exam General: Alert, No acute distress Heart: Regular rate, Normal S1, Normal S2 Lungs: Clear Abdomen: Normal bowel sounds Extremities: No clubbing Labs LABS Laboratory Tests Test 08/15/16 12:55 08/16/16 02:55 Prothrombin Time 22.2 SEC (11.7-14.0) 24.3 SEC (11.7-14.0) Prothromb Time International Ratio 2.1 (0.8-1.1) 2.4 (0.8-1.1) White Blood Count 5.4 x10^3/uL (4.0-11.0) Red Blood Count 3.74 x10^6/uL (3.50-5.40) Hemoglobin 10.8 g/dL (12.0-15.5) Hematocrit 33.5 % (36.0-47.0) Mean Corpuscular Volume 90 fL (79-100) Mean Corpuscular Hemoglobin 29 pg (25-35) Mean Corpuscular Hemoglobin Concent 32 g/dL (31-37) Red Cell Distribution Width 15.2 % (11.5-14.5) Platelet Count 231 x10^3/uL (140-400) Neutrophils (%) (Auto) 36 % (31-73) Lymphocytes (%) (Auto) 51 % (24-48) Monocytes (%) (Auto) 9 % (0-9) Eosinophils (%) (Auto) 3 % (0-3) Basophils (%) (Auto) 1 % (0-3) Neutrophils # (Auto) 1.9 x10^3uL (1.8-7.7) Lymphocytes # (Auto) 2.8 x10^3/uL (1.0-4.8) Monocytes # (Auto) 0.5 x10^3/uL (0.0-1.1) Eosinophils # (Auto) 0.1 x10^3/uL (0.0-0.7) Basophils # (Auto) 0.1 x10^3/uL (0.0-0.2) Sodium Level 142 mmol/L (136-145) Potassium Level 3.6 mmol/L (3.5-5.1) Chloride Level 106 mmol/L (98-107) Carbon Dioxide Level 29 mmol/L (21-32) Anion Gap 7 (6-14) Blood Urea Nitrogen 14 mg/dL (7-20) Creatinine 0.9 mg/dL (0.6-1.0) Estimated GFR (Cockcroft-Gault) 78.7 Glucose Level 93 mg/dL (70-99) Calcium Level 10.0 mg/dL (8.5-10.1) Triglycerides Level 43 mg/dL (0-150) Cholesterol Level 139 mg/dL (0-200) LDL Cholesterol, Calculated 82 mg/dL (0-100) VLDL Cholesterol, Calculated 9 mg/dL (0-40) Non-HDL Cholesterol Calculated 91 mg/dL (0-129) HDL Cholesterol 48 mg/dL (40-60) Cholesterol/HDL Ratio 2.9 Assessment and Plan Assessmemt and Plan Problems Medical Problems: (1) Chest pain Status: Acute (2) Substance abuse Status: Acute (3) Subtherapeutic international normalized ratio (INR) Status: Acute Problems: Comment Review of Relevant I have reviewed the following items brittani (where applicable) has been applied. Labs Laboratory Tests Test 08/14/16 16:00 08/14/16 19:14 08/14/16 22:00 08/15/16 05:00 White Blood Count 5.5 x10^3/uL (4.0-11.0) 5.1 x10^3/uL (4.0-11.0) Red Blood Count 3.97 x10^6/uL (3.50-5.40) 3.68 x10^6/uL (3.50-5.40) Hemoglobin 11.6 g/dL (12.0-15.5) 10.9 g/dL (12.0-15.5) Hematocrit 35.6 % (36.0-47.0) 32.4 % (36.0-47.0) Mean Corpuscular Volume 90 fL (79-100) 88 fL (79-100) Mean Corpuscular Hemoglobin 29 pg (25-35) 30 pg (25-35) Mean Corpuscular Hemoglobin Concent 32 g/dL (31-37) 34 g/dL (31-37) Red Cell Distribution Width 15.2 % (11.5-14.5) 15.2 % (11.5-14.5) Platelet Count 256 x10^3/uL (140-400) 240 x10^3/uL (140-400) Neutrophils (%) (Auto) 47 % (31-73) 34 % (31-73) Lymphocytes (%) (Auto) 40 % (24-48) 52 % (24-48) Monocytes (%) (Auto) 10 % (0-9) 10 % (0-9) Eosinophils (%) (Auto) 2 % (0-3) 3 % (0-3) Basophils (%) (Auto) 1 % (0-3) 1 % (0-3) Neutrophils # (Auto) 2.6 x10^3uL (1.8-7.7) 1.7 x10^3uL (1.8-7.7) Lymphocytes # (Auto) 2.2 x10^3/uL (1.0-4.8) 2.7 x10^3/uL (1.0-4.8) Monocytes # (Auto) 0.6 x10^3/uL (0.0-1.1) 0.5 x10^3/uL (0.0-1.1) Eosinophils # (Auto) 0.1 x10^3/uL (0.0-0.7) 0.1 x10^3/uL (0.0-0.7) Basophils # (Auto) 0.1 x10^3/uL (0.0-0.2) 0.0 x10^3/uL (0.0-0.2) Prothrombin Time 18.7 SEC (11.7-14.0) Prothromb Time International Ratio 1.7 (0.8-1.1) Sodium Level 142 mmol/L (136-145) 142 mmol/L (136-145) Potassium Level 3.1 mmol/L (3.5-5.1) 3.9 mmol/L (3.5-5.1) Chloride Level 105 mmol/L (98-107) 107 mmol/L (98-107) Carbon Dioxide Level 30 mmol/L (21-32) 29 mmol/L (21-32) Anion Gap 7 (6-14) 6 (6-14) Blood Urea Nitrogen 10 mg/dL (7-20) 13 mg/dL (7-20) Creatinine 1.1 mg/dL (0.6-1.0) 1.1 mg/dL (0.6-1.0) Estimated GFR (Cockcroft-Gault) 62.4 62.4 Glucose Level 114 mg/dL (70-99) 106 mg/dL (70-99) Calcium Level 10.5 mg/dL (8.5-10.1) 10.2 mg/dL (8.5-10.1) Troponin I Quantitative < 0.017 ng/mL (0.000-0.055) < 0.017 ng/mL (0.000-0.055) < 0.017 ng/mL (0.000-0.055) KB-Vjb-S-Type Natriuretic Peptide 814 pg/mL (0-124) Urine Opiates Screen Pos (NEG) Urine Methadone Screen Neg (NEG) Urine Barbiturates Neg (NEG) Urine Phencyclidine Screen Neg (NEG) Urine Amphetamine/Methamphetamine Neg (NEG) Urine Benzodiazepines Screen Pos (NEG) Urine Cocaine Screen Pos (NEG) Urine Cannabinoids Screen Neg (NEG) Urine Ethyl Alcohol Neg (NEG) Test 08/15/16 12:55 08/16/16 02:55 Prothrombin Time 22.2 SEC (11.7-14.0) 24.3 SEC (11.7-14.0) Prothromb Time International Ratio 2.1 (0.8-1.1) 2.4 (0.8-1.1) White Blood Count 5.4 x10^3/uL (4.0-11.0) Red Blood Count 3.74 x10^6/uL (3.50-5.40) Hemoglobin 10.8 g/dL (12.0-15.5) Hematocrit 33.5 % (36.0-47.0) Mean Corpuscular Volume 90 fL (79-100) Mean Corpuscular Hemoglobin 29 pg (25-35) Mean Corpuscular Hemoglobin Concent 32 g/dL (31-37) Red Cell Distribution Width 15.2 % (11.5-14.5) Platelet Count 231 x10^3/uL (140-400) Neutrophils (%) (Auto) 36 % (31-73) Lymphocytes (%) (Auto) 51 % (24-48) Monocytes (%) (Auto) 9 % (0-9) Eosinophils (%) (Auto) 3 % (0-3) Basophils (%) (Auto) 1 % (0-3) Neutrophils # (Auto) 1.9 x10^3uL (1.8-7.7) Lymphocytes # (Auto) 2.8 x10^3/uL (1.0-4.8) Monocytes # (Auto) 0.5 x10^3/uL (0.0-1.1) Eosinophils # (Auto) 0.1 x10^3/uL (0.0-0.7) Basophils # (Auto) 0.1 x10^3/uL (0.0-0.2) Sodium Level 142 mmol/L (136-145) Potassium Level 3.6 mmol/L (3.5-5.1) Chloride Level 106 mmol/L (98-107) Carbon Dioxide Level 29 mmol/L (21-32) Anion Gap 7 (6-14) Blood Urea Nitrogen 14 mg/dL (7-20) Creatinine 0.9 mg/dL (0.6-1.0) Estimated GFR (Cockcroft-Gault) 78.7 Glucose Level 93 mg/dL (70-99) Calcium Level 10.0 mg/dL (8.5-10.1) Triglycerides Level 43 mg/dL (0-150) Cholesterol Level 139 mg/dL (0-200) LDL Cholesterol, Calculated 82 mg/dL (0-100) VLDL Cholesterol, Calculated 9 mg/dL (0-40) Non-HDL Cholesterol Calculated 91 mg/dL (0-129) HDL Cholesterol 48 mg/dL (40-60) Cholesterol/HDL Ratio 2.9 Laboratory Tests Test 08/15/16 12:55 08/16/16 02:55 Prothrombin Time 22.2 SEC (11.7-14.0) 24.3 SEC (11.7-14.0) Prothromb Time International Ratio 2.1 (0.8-1.1) 2.4 (0.8-1.1) White Blood Count 5.4 x10^3/uL (4.0-11.0) Red Blood Count 3.74 x10^6/uL (3.50-5.40) Hemoglobin 10.8 g/dL (12.0-15.5) Hematocrit 33.5 % (36.0-47.0) Mean Corpuscular Volume 90 fL (79-100) Mean Corpuscular Hemoglobin 29 pg (25-35) Mean Corpuscular Hemoglobin Concent 32 g/dL (31-37) Red Cell Distribution Width 15.2 % (11.5-14.5) Platelet Count 231 x10^3/uL (140-400) Neutrophils (%) (Auto) 36 % (31-73) Lymphocytes (%) (Auto) 51 % (24-48) Monocytes (%) (Auto) 9 % (0-9) Eosinophils (%) (Auto) 3 % (0-3) Basophils (%) (Auto) 1 % (0-3) Neutrophils # (Auto) 1.9 x10^3uL (1.8-7.7) Lymphocytes # (Auto) 2.8 x10^3/uL (1.0-4.8) Monocytes # (Auto) 0.5 x10^3/uL (0.0-1.1) Eosinophils # (Auto) 0.1 x10^3/uL (0.0-0.7) Basophils # (Auto) 0.1 x10^3/uL (0.0-0.2) Sodium Level 142 mmol/L (136-145) Potassium Level 3.6 mmol/L (3.5-5.1) Chloride Level 106 mmol/L (98-107) Carbon Dioxide Level 29 mmol/L (21-32) Anion Gap 7 (6-14) Blood Urea Nitrogen 14 mg/dL (7-20) Creatinine 0.9 mg/dL (0.6-1.0) Estimated GFR (Cockcroft-Gault) 78.7 Glucose Level 93 mg/dL (70-99) Calcium Level 10.0 mg/dL (8.5-10.1) Triglycerides Level 43 mg/dL (0-150) Cholesterol Level 139 mg/dL (0-200) LDL Cholesterol, Calculated 82 mg/dL (0-100) VLDL Cholesterol, Calculated 9 mg/dL (0-40) Non-HDL Cholesterol Calculated 91 mg/dL (0-129) HDL Cholesterol 48 mg/dL (40-60) Cholesterol/HDL Ratio 2.9 Medications Current Medications Fentanyl Citrate (Fentanyl 2ml Vial) 50 mcg PRN Q15MIN PRN IV pain for 3 doses Last administered on 08/14/16 19:46; Start 08/14/16 at 16:00; Stop 08/14/16 at 20:00; Status DC Iohexol (Omnipaque 350 Mg/ml) 90 ml 1X ONCE IV Last administered on 08/14/16 18:18; Start 08/14/16 at 18:00; Stop 08/14/16 at 18:01; Status DC Info (Do NOT chart on this entry -- for MONITORING) 1 each PRN DAILY PRN MC SEE COMMENTS; Start 08/14/16 at 17:45; Stop 08/16/16 at 17:44 Iohexol (Omnipaque 350 Mg/ml) 100 ml STK-MED ONCE .ROUTE ; Start 08/14/16 at 17: 42; Stop 08/14/16 at 17:43; Status DC Potassium Chloride (Klor-Con) 40 meq 1X ONCE PO Last administered on 19:08; Start 08/14/16 at 19:00; Stop 08/14/16 at 19:01; Status DC Ondansetron HCl (Zofran) 4 mg PRN Q8HRS PRN IV NAUSEA/VOMITING Last administered on 08/14/16 19:45; Start 08/14/16 at 19:15; Stop 08/14/16 at 21:44 ; Status DC Fentanyl Citrate (Fentanyl 2ml Vial) 50 mcg PRN Q2HR PRN IV PAIN; Start at 19:15; Stop 08/15/16 at 19:14; Status DC Acetaminophen (Tylenol) 650 mg PRN Q4HRS PRN PO FEVER; Start 08/14/16 at 19:15 ; Stop 08/14/16 at 21:45; Status DC Nitroglycerin (Nitrostat) 0.4 mg PRN Q5MIN PRN SL CHEST PAIN; Start 08/14/16 at 19:15; Stop 08/15/16 at 19:14; Status DC Acetaminophen (Tylenol) 325 mg PRN Q6HRS PRN PO MILD PAIN / TEMP; Start at 21:45 Acetaminophen/ Hydrocodone Bitart (Lortab 5/325) 1 tab PRN Q6HRS PRN PO MODERATE TO SEVERE PAIN Last administered on 08/15/16 12:50; Start 08/14/16 at 21:45 Hydralazine HCl (Apresoline) 10 mg PRN Q4HRS PRN IVP ELEVATED BP, SEE COMMENTS ; Start 08/14/16 at 21:45 Ondansetron HCl (Zofran) 4 mg PRN Q8HRS PRN IV NAUSEA/VOMITING Last administered on 08/15/16 12:54; Start 08/14/16 at 21:45 Albuterol Sulfate (Ventolin Neb Soln) 2.5 mg PRN Q4HRS PRN NEB SHORTNESS OF BREATH; Start 08/14/16 at 21:45 Alprazolam (Xanax) 1 mg PRN TID PRN PO ANXIETY Last administered on 08/15/16 23:17; Start 08/14/16 at 22:15 Atorvastatin Calcium (Lipitor) 20 mg QHS PO Last administered on 08/15/16 20: 47; Start 08/14/16 at 23:00 Sertraline HCl (Zoloft) 50 mg QHS PO Last administered on 08/15/16 20:47; Start 08/14/16 at 23:00 Topiramate (Topamax) 25 mg QHS PO Last administered on 08/15/16 20:47; Start 08/14/16 at 23:00 Hydralazine HCl (Apresoline) 100 mg BID PO Last administered on 08/15/16 20:48 ; Start 08/14/16 at 23:00 Zolpidem Tartrate (Ambien) 5 mg PRN QHS PRN PO INSOMNIA, MAY REPEAT X1 Last administered on 08/15/16 23:17; Start 08/14/16 at 22:15 Aspirin (Children'S Aspirin) 324 mg 1X ONCE PO Last administered on 08/14/16 22:28; Start 08/14/16 at 22:30; Stop 08/14/16 at 22:31; Status DC Warfarin Sodium (Coumadin Per Pharmacy) 1 each PRN DAILY PRN MC SEE COMMENTS Last administered on 08/15/16 14:11; Start 08/14/16 at 22:15 Warfarin Sodium (Coumadin) 7.5 mg 1X ONCE PO Last administered on 08/14/16 22 :29; Start 08/14/16 at 22:30; Stop 08/14/16 at 22:31; Status DC Enoxaparin Sodium (Lovenox Per Pharmacy Treatment Dosing) 1 each PRN DAILY PRN MC SEE COMMENTS; Start 08/15/16 at 12:15; Status Cancel Enoxaparin Sodium (Lovenox 80mg Syringe) 70 mg Q12HR SQ ; Start 08/15/16 at 12: 30; Status Cancel Enoxaparin Sodium (Lovenox 80mg Syringe) 70 mg 1X ONCE SQ Last administered on 08/15/16 15:38; Start 08/15/16 at 14:30; Stop 08/15/16 at 14:31; Status DC Warfarin Sodium (Coumadin) 7.5 mg 1X WARF ONCE PO Last administered on 15:37; Start 08/15/16 at 16:00; Stop 08/15/16 at 16:01; Status DC Active Scripts Active Topamax (Topiramate) 25 Mg Tablet 1 Tab PO QHS Zoloft (Sertraline Hcl) 50 Mg Tablet 50 Mg PO QHS Reported Metoprolol Tartrate 25 Mg Tablet 25 Mg PO BID Atorvastatin Calcium 20 Mg Tablet 20 Mg PO QHS Losartan Potassium 50 Mg Tablet 50 Mg PO DAILY Zolpidem Tartrate 10 Mg Tablet 10 Mg PO PRN QHS PRN Warfarin Sodium 5 Mg Tablet 5 Mg PO DAILY16 Alprazolam 1 Mg Tablet 1 Mg PO PRN TID PRN Hydralazine Hcl 100 Mg Tablet 100 Mg PO BID Percocet 5-325 Mg Tablet (Oxycodone/Acetaminophen) 1 Each Tablet 1 Tab PO PRN Q6HRS PRN Protonix (Pantoprazole Sodium) 40 Mg Tablet.dr 1 Tab PO DAILY Aspir 81 (Aspirin) 81 Mg Tablet.dr 81 Mg PO DAILY Vitals/I & O Vital Sign - Last 24 Hours 08/15/16 08/15/16 08/15/16 08/15/16 11:00 12:06 12:50 14:10 Temp 98.1 98.1 Pulse 76 81 Resp 18 B/P (MAP) 109/62 (78) 110/61 (77) Pulse Ox 100 O2 Delivery Room Air Room Air Room Air 08/15/16 08/15/16 08/15/16 08/15/16 15:00 18:54 19:05 20:48 Temp 98.3 98.4 98.3 98.4 Pulse 86 64 60 Resp 16 16 B/P (MAP) 129/74 (92) 110/59 (76) 110/59 Pulse Ox 97 95 O2 Delivery Room Air Room Air Room Air 08/15/16 08/16/16 08/16/16 23:00 02:58 07:48 Temp 98.1 97.8 97.5 98.1 97.8 97.5 Pulse 75 92 93 Resp 16 16 19 B/P (MAP) 134/70 (91) 104/61 (75) 133/80 (97) Pulse Ox 97 97 96 O2 Delivery Room Air Room Air Room Air Intake and Output 08/15/16 08/15/16 08/16/16 15:00 23:00 07:00 Intake Total 350 ml 850 ml 570 ml Output Total 300 ml Balance 350 ml 550 ml 570 ml KAYLEIGH BANUELOS MD Aug 16, 2016 10:43
[2016-08-16 11:10] VITALS: BP 161/83
[2016-08-16] MEDS: ALPRAZolam 1 MG TABLET PO PRN ×2 (11:29→22:56)
[2016-08-16] MEDS: HYDROcodone/APAP 5/325MG 1 TAB TABLET PO PRN ×2 (11:35→18:32)
[2016-08-16] MEDS ORDERED: WARFARIN 7.5 MG TABLET. PO ONE (16:00)
--- NOTE | 2016-08-16 16:08 | CARD ---
APPROVED REPORT EXAM: Two-dimensional and M-mode echocardiogram with Doppler and color Doppler. Other Information Quality : GoodHR: 82bpm Rhythm : NSR INDICATION Chest pain, Hx. Aortic valve replacement RISK FACTORS Hypertension Hyperlipidemia 2D DIMENSIONS RVDd2.9 (2.9-3.5cm)Left Atrium(2D)2.4 (1.6-4.0cm) IVSd1.0 (0.7-1.1cm)Aortic Root(2D)2.1 (2.0-3.7cm) LVDd3.9 (3.9-5.9cm)LVOT Diameter2.2 (1.8-2.4cm) PWd0.9 (0.7-1.1cm)LVDs2.8 (2.5-4.0cm) FS (%) 28.0 %SV35.7 ml LVEF(%)54.9 (>50%) Aortic Valve AoV Peak Devonte.219.3cm/sAoV VTI31.4cm AO Peak GR.19.2mmHgLVOT Peak Devonte.110.7cm/s AO Mean GR.11mmHgAVA (VMAX)1.99cm2 Mitral Valve MV E Iedlihcr12.0cm/sMV E Peak Gr.3mmHg MV DECEL [id number] A Bttwjbah97.9cm/s MV E Mean Gr.1mmHgE/A Ratio1.2 MV A [id number] Tricuspid Valve TR P. [id number]/sTR Peak Gr.33mmHg Pulmonary Vein S1 Vncknwmu84.4cm/sD2 Oqkpnpsc33.5cm/s PVa [id number] LEFT VENTRICLE The left ventricle is normal size. There is normal left ventricular wall thickness. The left ventricu lar systolic function is normal. The Ejection Fraction is 55-60%. Septal motion consistent with post- operative state. The left ventricular diastolic function and filling is normal for age. RIGHT VENTRICLE The right ventricle is normal size. There is normal right ventricular wall thickness. The right ventr icular systolic function is normal. ATRIA The left atrium size is normal. The right atrium size is normal. The interatrial septum is intact wit h no evidence for an atrial septal defect or patent foramen ovale as noted on 2-D or Doppler imaging. AORTIC VALVE There is a prosthetic aortic valve in place. The prosthetic aortic valve appears to open well. MITRAL VALVE The mitral valve leaflets are mildly thickened. There is no evidence of mitral valve prolapse. There is no mitral valve stenosis. Doppler and Color Flow revealed trace mitral regurgitation. TRICUSPID VALVE Doppler and Color Flow revealed mild tricuspid regurgitation. The pulmonary artery systolic pressure is estimated at 36 mmHg. There is mild pulmonary hypertension. PULMONIC VALVE The pulmonic valve is not well visualized but appears to open well. Doppler and Color Flow revealed n o pulmonic valvular regurgitation. There is no pulmonic valvular stenosis. GREAT VESSELS The aortic root is normal in size. The ascending aorta is not well seen. The pulmonary is not well vi sualized. The IVC is normal in size and collapses >50% with inspiration. PERICARDIAL EFFUSION There is no evidence of significant pericardial effusion. Critical Notification Critical Value: No <Conclusion> The left ventricular systolic function is normal. The Ejection Fraction is 55-60%. Mechanical prosthetic aortic valve appears well seated and functioning well. Trace mitral regurgitation. Mild tricuspid regurgitation. The pulmonary artery systolic pressure is estimated at 36 mmHg. There is no evidence of significant pericardial effusion.
--- NOTE | 2016-08-16 16:14 | PDOC ---
CARDIO Progress Notes Date and Time Date of Service 08/16/2016 Time of Evaluation 1612 Subjective Subjective: No Chest Pain, No shortness of breath, No Palpitations Vitals Vitals Vital Signs Date Time Temp Pulse Resp B/P (MAP) Pulse Ox O2 Delivery O2 Flow Rate FiO2 08/16/16 12:35 18 96 Room Air 08/16/16 11:29 70 161/83 08/16/16 11:10 98.5 98.5 Weight Weight [ ] Input and Output Intake and Output Intake and Output 08/16/16 07:00 Intake Total 1770 ml Output Total 300 ml Balance 1470 ml Intake Oral 1770 ml Output Urine Total 300 ml # Voids 3 Laboratory Labs Laboratory Tests Test 08/16/16 02:55 White Blood Count 5.4 x10^3/uL (4.0-11.0) Red Blood Count 3.74 x10^6/uL (3.50-5.40) Hemoglobin 10.8 g/dL (12.0-15.5) Hematocrit 33.5 % (36.0-47.0) Mean Corpuscular Volume 90 fL (79-100) Mean Corpuscular Hemoglobin 29 pg (25-35) Mean Corpuscular Hemoglobin Concent 32 g/dL (31-37) Red Cell Distribution Width 15.2 % (11.5-14.5) Platelet Count 231 x10^3/uL (140-400) Neutrophils (%) (Auto) 36 % (31-73) Lymphocytes (%) (Auto) 51 % (24-48) Monocytes (%) (Auto) 9 % (0-9) Eosinophils (%) (Auto) 3 % (0-3) Basophils (%) (Auto) 1 % (0-3) Neutrophils # (Auto) 1.9 x10^3uL (1.8-7.7) Lymphocytes # (Auto) 2.8 x10^3/uL (1.0-4.8) Monocytes # (Auto) 0.5 x10^3/uL (0.0-1.1) Eosinophils # (Auto) 0.1 x10^3/uL (0.0-0.7) Basophils # (Auto) 0.1 x10^3/uL (0.0-0.2) Prothrombin Time 24.3 SEC (11.7-14.0) Prothromb Time International Ratio 2.4 (0.8-1.1) Sodium Level 142 mmol/L (136-145) Potassium Level 3.6 mmol/L (3.5-5.1) Chloride Level 106 mmol/L (98-107) Carbon Dioxide Level 29 mmol/L (21-32) Anion Gap 7 (6-14) Blood Urea Nitrogen 14 mg/dL (7-20) Creatinine 0.9 mg/dL (0.6-1.0) Estimated GFR (Cockcroft-Gault) 78.7 Glucose Level 93 mg/dL (70-99) Calcium Level 10.0 mg/dL (8.5-10.1) Triglycerides Level 43 mg/dL (0-150) Cholesterol Level 139 mg/dL (0-200) LDL Cholesterol, Calculated 82 mg/dL (0-100) VLDL Cholesterol, Calculated 9 mg/dL (0-40) Non-HDL Cholesterol Calculated 91 mg/dL (0-129) HDL Cholesterol 48 mg/dL (40-60) Cholesterol/HDL Ratio 2.9 Physical Exam HEENT: Neck Supple W Full Motion Chest: Symmetric LUNGS: Clear to Auscultation Heart: S1S2, RRR Abdomen: Soft N/T Extremities: No Edema Neurology: alert, oriented, follow commands Assessment Assessment 1. Chest discomfort. Troponin levels are normal 3. Patient has no acute ischemic EKG changes. Patient does have a history of mild coronary artery disease. CT scan shows unchanged size and appearance of her aneurysm. echo pending 2. Mechanical aortic valve. echo pending to evaluate 3. Status post aneurysm repair. Unchanged on CT scan as above. 4. Mild coronary artery disease. Continue medical treatment. 5. Hypertension. control with meds 6. Hyperlipidemia. controlled with statin ROSENDA Bryan APRN Aug 16, 2016 16:14
[2016-08-16 19:00] VITALS: BP 112/55
[2016-08-16] MEDS: ATORVASTATIN CALCIUM 20 MG TABLET PO SCH (21:12)
[2016-08-16] MEDS: SERTRALINE 50 MG TABLET. PO SCH (21:12)
[2016-08-16] MEDS: TOPIRAMATE 25 MG TABLET. PO SCH (21:12)
[2016-08-16 22:54] VITALS: BP 106/58
[2016-08-16] MEDS: ZOLPIDEM 5 MG TABLET. PO PRN (22:56)
[2016-08-17 03:00] VITALS: BP 140/86
[2016-08-17 03:50] LABS: BASO % 1 % (0-3); EOS % 3 % (0-3); HEMATOCRIT 32.7 % (36.0-47.0); HEMOGLOBIN 10.8 g/dL (12.0-15.5); LYMPH # 2.3 x10^3/uL (1.0-4.8); LYMPH % 50 % (24-48); MEAN CORPUSCULAR HEMOGLOBIN 29 pg (25-35); MEAN CORPUSCULAR HGB CONC 33 g/dL (31-37); MEAN CORPUSCULAR VOLUME 89 fL (79-100); MONO % 10 % (0-9); NEUT % 37 % (31-73); PLATELET COUNT 233 x10^3/uL (140-400); RED BLOOD COUNT 3.68 x10^6/uL (3.50-5.40); RED CELL DISTRIBUTION WIDTH 15.1 % (11.5-14.5); WHITE BLOOD COUNT 4.7 x10^3/uL (4.0-11.0)
[2016-08-17 03:58] LABS: CALCIUM 9.8 mg/dL (8.5-10.1); GFR 69.7; INR 2.5 (0.8-1.1); POTASSIUM 3.5 mmol/L (3.5-5.1); PROTHROMBIN TIME PATIENT 25.7 SEC (11.7-14.0)
[2016-08-17 07:42] VITALS: BP 126/76
[2016-08-17] MEDS: ALPRAZolam 1 MG TABLET PO PRN (09:11)
[2016-08-17 10:27] VITALS: BP 94/52
[2016-08-17] MEDS ORDERED: WARFARIN 3 MG TABLET. PO ONE (15:00)
--- NOTE | 2016-08-19 22:05 | DS ---
DATE OF DISCHARGE: 08/17/2016 DISCHARGE DIAGNOSES: 1. Chest pain, likely due to pleuritic versus musculoskeletal in nature, acute coronary syndrome ruled out. 2. Hypertension, stable. 3. Hyperlipidemia, stable. 4. Anemia, stable. 5. Chronic obstructive pulmonary disease. 6. History of right-sided renal artery stenosis. 7. History of ascending aortic dissection with previous surgical repair and mechanical aortic valve placement, on warfarin currently ____. BRIEF HOSPITAL COURSE: A 56-year-old female patient who presented to the hospital for chest pressure and given her cardiovascular comorbidities, the patient has been admitted to the hospital and she had sets of troponins, which were negative for any ischemia and she had an echocardiogram, which showed 55-60% with trace mitral regurgitation with elevated pulmonary artery systolic pressures around 36 mmHg. Mechanical prosthetic aortic valve ____ well seated and functioning well. During hospitalization, her INR was not therapeutic. At the time of admission, she received Lovenox. Later with warfarin at the time of discharge, her INR was therapeutic at 2.5. Cardiology recommended her to follow up with Cardiology and primary care doctor as scheduled. They do not recommend any further workup at this time. The patient seemed clinically stable and asymptomatic. DISCHARGE EXAMINATION: GENERAL: Alert, oriented x 3. CHEST: Anterior chest clear. HEART: S1, S2 present, metallic click positive. ABDOMEN: Soft, nontender, no organomegaly. EXTREMITIES: No edema. DISCHARGE DISPOSITION: Home. DISCHARGE CONDITION: Stable. DISCHARGE FOLLOWUP: With Cardiology and primary care doctor. MEDICATIONS: Reviewed and reconciled. Please see my discharge instructions. DIET: Cardiac. Total time spent for discharge is 32 minutes for patient education, counseling, and coordination of care. KAYLEIGH BANUELOS MD DR: HORTENCIA/ryan JOB#: [id number] / [id number]
== END 2016-08-17 15:00 | disposition home or self-care (01) | DRG 204 ==
LOC: ER 15:27 → 2 NORTH 19:00 → OBSVTOIN 08-15 12:08
PROVIDERS: ADMIT Internal Medicine Hematology & Oncology; ATTEND Internal Medicine Hematology & Oncology
DX: R07.81 Pleurodynia (principal); R07.89 Other chest pain; E78.00 Pure hypercholesterolemia, unspecified; E78.5 Hyperlipidemia, unspecified; I10 Essential (primary) hypertension; I25.10 Atherosclerotic heart disease of native coronary artery without angina pectoris; J44.9 Chronic obstructive pulmonary disease, unspecified; K21.9 Gastro-esophageal reflux disease without esophagitis; M10.9 Gout, unspecified; K76.0 Fatty (change of) liver, not elsewhere classified; I70.1 Atherosclerosis of renal artery; D64.9 Anemia, unspecified; F41.9 Anxiety disorder, unspecified; M19.90 Unspecified osteoarthritis, unspecified site; Z86.73 Personal history of transient ischemic attack (TIA), and cerebral infarction without residual deficits; Z86.79 Personal history of other diseases of the circulatory system; Z82.49 Family history of ischemic heart disease and other diseases of the circulatory system; Z80.9 Family history of malignant neoplasm, unspecified; Z83.3 Family history of diabetes mellitus; Z95.2 Presence of prosthetic heart valve; Z90.710 Acquired absence of both cervix and uterus
CPT/HCPCS: 36415; 71010; 71275; 74174; 80048; 80061; 83880; 84484; 85027; 85610; 93005; 93306; 94250; 94760; 96374; 96375; 96376; G0378; G0379; G0481; J1650; J2405; J3010; Q9967; 99285-25

== ENCOUNTER 2017-04-23 14:27 | Emergency (ER) | payer OTHER ==
[2017-04-23] MEDS: IV NORMAL SALINE 1000ML BAG 1,000 ML IV ×2 (15:39)
[2017-04-23] MEDS: fentaNYL PF VIAL 100 MCG/2 ML VIAL IV ×2 (15:40)
[2017-04-23] MEDS: ONDANSETRON PF 4 MG/2 ML VIAL. IV ×2 (15:40)
[2017-04-23 15:42] LABS: ADD MAN DIFF? NO
[2017-04-23 15:45] LABS: BASO % 1 % (0-3); EOS # 0.1 x10^3/uL (0.0-0.7); EOS % 2 % (0-3); HEMOGLOBIN 12.3 g/dL (12.0-15.5); LYMPH % 34 % (24-48); MEAN CORPUSCULAR HEMOGLOBIN 30 pg (25-35); MEAN CORPUSCULAR HGB CONC 33 g/dL (31-37); MEAN CORPUSCULAR VOLUME 90 fL (79-100); MONO # 0.5 x10^3/uL (0.0-1.1); MONO % 9 % (0-9); NEUT # 3.3 x10^3uL (1.8-7.7); NEUT % 54 % (31-73); PLATELET COUNT 225 x10^3/uL (140-400); RED BLOOD COUNT 4.12 x10^6/uL (3.50-5.40); RED CELL DISTRIBUTION WIDTH 14.9 % (11.5-14.5)
[2017-04-23 16:00] LABS: ANION GAP 8 (6-14); BLOOD UREA NITROGEN 12 mg/dL (7-20); BUN/CREATININE RATIO 13 (6-20); CALCIUM 10.6 mg/dL (8.5-10.1); CARBON DIOXIDE 28 mmol/L (21-32); CHLORIDE 104 mmol/L (98-107); CREATININE 0.9 mg/dL (0.6-1.0); GFR 78.4; GLUCOSE 69 mg/dL (70-99); POTASSIUM 3.6 mmol/L (3.5-5.1); SODIUM 140 mmol/L (136-145)
[2017-04-23 16:03] LABS: ALBUMIN 3.6 g/dL (3.4-5.0); ALBUMIN/GLOBULIN RATIO 0.8 (1.0-1.7); ALK PHOS 155 U/L (46-116); ALT (SGPT) 14 U/L (14-59); AST (SGOT) 16 U/L (15-37); TOTAL BILIRUBIN 0.3 mg/dL (0.2-1.0); TOTAL PROTEIN 7.9 g/dL (6.4-8.2)
[2017-04-23] MEDS: IPRATRPIUM/ALBUTEROL 0.5/2.5MG 3 ML NEBU. NEB ×2 (16:03)
[2017-04-23 16:07] LABS: TROPONINI < 0.017 ng/mL (0.000-0.055)
[2017-04-23 16:12] LABS: CKMB MASS < 0.5 ng/mL (0.0-3.6); CREATINE KINASE 73 U/L (26-192)
[2017-04-23 16:14] LABS: INFLUENZA A PATIENT NEGATIVE (NEGATIVE); INFLUENZA B PATIENT NEGATIVE (NEGATIVE); OBC FLU VALID
== END 2017-04-23 18:08 | disposition home or self-care (01) ==
LOC: ER 14:27
DX: R09.1 Pleurisy (principal); M19.90 Unspecified osteoarthritis, unspecified site; J44.9 Chronic obstructive pulmonary disease, unspecified; K21.9 Gastro-esophageal reflux disease without esophagitis; E78.00 Pure hypercholesterolemia, unspecified; I25.10 Atherosclerotic heart disease of native coronary artery without angina pectoris; I10 Essential (primary) hypertension; G89.29 Other chronic pain; Z90.710 Acquired absence of both cervix and uterus
CPT/HCPCS: 36415; 71045; 80053; 82553; 84484; 85025; 87804; 87804-59; 93005; 94640; 96361; 96374; 96375; 99285-25; J2405; J3010; J7030; J7620

== ENCOUNTER 2017-09-28 21:09 | Observation (INO) | payer OTHER ==
[2017-09-28 21:43] LABS: ADD MAN DIFF? NO
[2017-09-28 21:48] LABS: BASO # 0.1 x10^3/uL (0.0-0.2); BASO % 1 % (0-3); EOS # 0.2 x10^3/uL (0.0-0.7); EOS % 2 % (0-3); HEMATOCRIT 36.4 % (36.0-47.0); HEMOGLOBIN 12.3 g/dL (12.0-15.5); LYMPH # 3.2 x10^3/uL (1.0-4.8); LYMPH % 44 % (24-48); MEAN CORPUSCULAR HEMOGLOBIN 30 pg (25-35); MEAN CORPUSCULAR HGB CONC 34 g/dL (31-37); MEAN CORPUSCULAR VOLUME 90 fL (79-100); MONO # 0.5 x10^3/uL (0.0-1.1); MONO % 7 % (0-9); NEUT # 3.3 x10^3uL (1.8-7.7); NEUT % 45 % (31-73); PLATELET COUNT 227 x10^3/uL (140-400); RED BLOOD COUNT 4.06 x10^6/uL (3.50-5.40); RED CELL DISTRIBUTION WIDTH 15.1 % (11.5-14.5); WHITE BLOOD COUNT 7.3 x10^3/uL (4.0-11.0)
[2017-09-28 21:56] LABS: ANION GAP 5 (6-14); BLOOD UREA NITROGEN 16 mg/dL (7-20); CALCIUM 10.7 mg/dL (8.5-10.1); CARBON DIOXIDE 30 mmol/L (21-32); CHLORIDE 104 mmol/L (98-107); CREATININE 1.1 mg/dL (0.6-1.0); GFR 62.2; GLUCOSE 91 mg/dL (70-99); POTASSIUM 3.6 mmol/L (3.5-5.1); SODIUM 139 mmol/L (136-145)
[2017-09-28] MEDS: ASPIRIN CHEWABLE 81 MG TABLET. PO (21:56)
[2017-09-28 21:57] LABS: INR 2.2 (0.8-1.1); PARTIAL THROMBOPLASTIN TIME 38 SEC (24-38)
[2017-09-28] MEDS: NITROGLYCERIN SUBLINGUAL 0.4 MG BOTTLE OF 25. SL (21:57)
[2017-09-28 22:06] LABS: TROPONINI < 0.017 ng/mL (0.000-0.055)
[2017-09-28 22:09] LABS: NT-PRO BNP 425 pg/mL (0-124)
[2017-09-28 22:12] LABS: D-DIMER 1.51 ug/mlFEU (0.00-0.50)
[2017-09-28] MEDS: PROCHLORPERAZINE 10 MG/2 ML VIAL. IV (22:37)
[2017-09-28] MEDS: diphenhydrAMINE 50 MG/ML VIAL IVP (22:37)
[2017-09-28] MEDS: IOHEXOL 300 MG/ML 100ML VIAL. IV (22:43)
[2017-09-28] MEDS ORDERED: CONTRAST GIVEN. MC (22:45)
[2017-09-28] MEDS: MORPHINE SULFATE 10 MG/ML VIAL. IV (23:41)
[2017-09-29] MEDS ORDERED: NITROGLYCERIN SUBLINGUAL 0.4 MG BOTTLE OF 25. SL
[2017-09-29] MEDS ORDERED: ACETAMINOPHEN 325 MG TABLET. PO
[2017-09-29] MEDS ORDERED: MORPHINE SULFATE 4 MG/ML DISP.SYRIN. IV
[2017-09-29] MEDS ORDERED: ONDANSETRON PF 4 MG/2 ML VIAL. IV
[2017-09-29 04:37] LABS: ADD MAN DIFF? NO
[2017-09-29 04:45] LABS: BASO % 1 % (0-3); EOS # 0.2 x10^3/uL (0.0-0.7); EOS % 3 % (0-3); HEMATOCRIT 31.6 % (36.0-47.0); HEMOGLOBIN 10.7 g/dL (12.0-15.5); LYMPH # 2.6 x10^3/uL (1.0-4.8); LYMPH % 49 % (24-48); MEAN CORPUSCULAR HEMOGLOBIN 30 pg (25-35); MEAN CORPUSCULAR HGB CONC 34 g/dL (31-37); MEAN CORPUSCULAR VOLUME 90 fL (79-100); MONO # 0.4 x10^3/uL (0.0-1.1); MONO % 8 % (0-9); NEUT # 2.2 x10^3uL (1.8-7.7); NEUT % 40 % (31-73); PLATELET COUNT 193 x10^3/uL (140-400); RED BLOOD COUNT 3.54 x10^6/uL (3.50-5.40); RED CELL DISTRIBUTION WIDTH 15.1 % (11.5-14.5); WHITE BLOOD COUNT 5.4 x10^3/uL (4.0-11.0)
[2017-09-29 05:26] LABS: TROPONINI < 0.017 ng/mL (0.000-0.055)
[2017-09-29 05:30] LABS: ANION GAP 7 (6-14); BLOOD UREA NITROGEN 14 mg/dL (7-20); CALCIUM 9.7 mg/dL (8.5-10.1); CARBON DIOXIDE 29 mmol/L (21-32); CHLORIDE 105 mmol/L (98-107); CREATININE 1.1 mg/dL (0.6-1.0); GFR 62.2; GLUCOSE 76 mg/dL (70-99); POTASSIUM 3.8 mmol/L (3.5-5.1); SODIUM 141 mmol/L (136-145)
[2017-09-29 06:24] LABS: TROPONINI < 0.017 ng/mL (0.000-0.055)
[2017-09-29] MEDS ORDERED: ALPRAZolam 1 MG TABLET PO (09:15)
[2017-09-29] MEDS ORDERED: ALBUTEROL SULFATE 2.5 MG/3 ML NEBU. NEB (09:15)
[2017-09-29] MEDS ORDERED: ZOLPIDEM 5 MG TABLET. PO (09:15)
[2017-09-29] MEDS ORDERED: NON FORMULARY ITEM (Albuterol Sulfate (Ventolin Hfa Inhaler) 2 PUFF) INH (09:15)
[2017-09-29] MEDS: REGADENOSON 0.4 MG/5 ML DISP.SYRIN. IV (12:42)
[2017-09-29] MEDS: ASPIRIN ENTERIC COATED 81 MG TABLET.DR. PO (12:59)
[2017-09-29] MEDS: LOSARTAN POTASSIUM 50 MG TABLET. PO (12:59)
[2017-09-29] MEDS: METOPROLOL TART IMMED RELEASE 25 MG TABLET. PO ×2 (13:00→20:51)
[2017-09-29] MEDS: PANTOPRAZOLE 40 MG TABLET.DR. PO (13:01)
[2017-09-29] MEDS: oxyCODONE/APAP 5/325 1 TAB TABLET PO ×2 (13:02→20:56)
[2017-09-29] MEDS: WARFARIN 5 MG TABLET. PO (16:07)
[2017-09-29] MEDS: ATORVASTATIN CALCIUM 40 MG TABLET. PO (20:50)
[2017-09-29] MEDS: SERTRALINE 50 MG TABLET. PO (20:51)
[2017-09-30] MEDS: oxyCODONE/APAP 5/325 1 TAB TABLET PO ×2 (04:40→11:20)
[2017-09-30 05:09] LABS: BASO % 1 % (0-3); EOS # 0.2 x10^3/uL (0.0-0.7); EOS % 4 % (0-3); HEMATOCRIT 32.9 % (36.0-47.0); HEMOGLOBIN 11.1 g/dL (12.0-15.5); LYMPH # 3.3 x10^3/uL (1.0-4.8); LYMPH % 59 % (24-48); MEAN CORPUSCULAR HEMOGLOBIN 30 pg (25-35); MEAN CORPUSCULAR HGB CONC 34 g/dL (31-37); MEAN CORPUSCULAR VOLUME 90 fL (79-100); MONO # 0.5 x10^3/uL (0.0-1.1); MONO % 9 % (0-9); NEUT # 1.5 x10^3uL (1.8-7.7); NEUT % 27 % (31-73); PLATELET COUNT 213 x10^3/uL (140-400); RED BLOOD COUNT 3.66 x10^6/uL (3.50-5.40); RED CELL DISTRIBUTION WIDTH 15.4 % (11.5-14.5); WHITE BLOOD COUNT 5.5 x10^3/uL (4.0-11.0)
[2017-09-30 05:33] LABS: ALBUMIN 3.3 g/dL (3.4-5.0); ALK PHOS 116 U/L (46-116); ALT (SGPT) 15 U/L (14-59); ANION GAP 6 (6-14); AST (SGOT) 15 U/L (15-37); BLOOD UREA NITROGEN 13 mg/dL (7-20); BUN/CREATININE RATIO 13 (6-20); CALCIUM 9.3 mg/dL (8.5-10.1); CARBON DIOXIDE 29 mmol/L (21-32); CHLORIDE 105 mmol/L (98-107); GFR 69.4; GLUCOSE 83 mg/dL (70-99); POTASSIUM 3.8 mmol/L (3.5-5.1); SODIUM 140 mmol/L (136-145); TOTAL BILIRUBIN 0.2 mg/dL (0.2-1.0); TOTAL PROTEIN 6.6 g/dL (6.4-8.2)
[2017-09-30 05:47] LABS: ADD MAN DIFF? YES
[2017-09-30 06:26] LABS: INR 3.5 (0.8-1.1); PROTHROMBIN TIME PATIENT 34.6 SEC (11.7-14.0)
[2017-09-30] MEDS: ASPIRIN ENTERIC COATED 81 MG TABLET.DR. PO (08:11)
[2017-09-30] MEDS: PANTOPRAZOLE 40 MG TABLET.DR. PO (08:11)
[2017-09-30] MEDS: METOPROLOL TART IMMED RELEASE 25 MG TABLET. PO (08:11)
[2017-09-30] MEDS: LOSARTAN POTASSIUM 50 MG TABLET. PO (08:11)
[2017-09-30 09:54] LABS: % EOS 1 % (0-5); % LYMPHS 70 % (24-48); % MONOS 4 % (0-10); % SEGS 25 % (35-66); PLT ESTIMATE ADEQUATE (ADEQUATE)
== END 2017-09-30 14:14 | disposition home or self-care (01) ==
LOC: 2 NORTH 09-29 00:34 → ER 21:09
DX: I25.119 Atherosclerotic heart disease of native coronary artery with unspecified angina pectoris (principal); I10 Essential (primary) hypertension; E78.5 Hyperlipidemia, unspecified; J44.9 Chronic obstructive pulmonary disease, unspecified; K21.9 Gastro-esophageal reflux disease without esophagitis; E78.00 Pure hypercholesterolemia, unspecified; M54.5 Low back pain; Z79.01 Long term (current) use of anticoagulants; Z82.49 Family history of ischemic heart disease and other diseases of the circulatory system; Z83.3 Family history of diabetes mellitus; Z86.73 Personal history of transient ischemic attack (TIA), and cerebral infarction without residual deficits; Z86.79 Personal history of other diseases of the circulatory system; Z90.710 Acquired absence of both cervix and uterus; Z95.2 Presence of prosthetic heart valve
CPT/HCPCS: 36415; 71045; 71275; 74174; 78452; 80048; 80053; 83880; 84484; 85007; 85025; 85379; 85610; 85730; 93005; 93017; 93306; 94760; 96372; 96374; 96375; 96376; 99285; A9500; G0378; G0379; J0780; J1200; J1650; J2270; J2785; Q9967

== ENCOUNTER 2020-05-16 23:11 | Emergency (ER) | payer MEDICAID, OTHER ==
[~2020-05-16] VITALS: Ht 180.3 cm; Wt 67.5 kg
[~2020-05-16 23:11] MED LIST changes: +ALPR1TAB2 PO; +ALPR1TAB6 PO; +AMLO-186 PO; +AMLO-187 PO; -AMLO10TA2 PO; -AMLO5TAB2 PO; +ATOR20TA58 PO; +ATOR40TA59 PO; +AZIT250T PO; +GABA300C18 PO; -GABA300C8 PO; -HYDR-2762 PO; +HYDR-2765 PO; +HYDR-3164 PO; +LOSA-73 PO; -LOSA25TA4 PO; +LOSA25TA54 PO; -LOSA50TA2 PO; +METO25TA4 PO; +OMEP20CA16 PO; -OMEP20CA9 PO; -OXYC-323 PO; -OXYC15TA PO; +OXYC15TA3 PO; -OXYC15TA60 PO; +OXYC15TA61 PO; +OXYC1TAB15 PO; -PANT40TA3 PO; +PANT40TA77 PO; +VENTOLIN HFA18 GM INH; +WARF-31 PO; -WARF-78 PO; +WARF1TAB2 PO; -WARF1TAB74 PO; +WARF2.5T2 PO; -WARF2.5T83 PO; +WARF3TAB50 PO; -WARF3TAB7 PO; +WARF5TAB2 PO; -WARF5TAB7 PO; +ZOLP10TA4 PO
--- NOTE | 2020-05-16 23:29 | EKG ---
[facility] [address] [place] [address] Test Date: 2020-05-16 Test Time: 23:17:26 Pat Name: GINO CARLOS Department: Room: Gender: F [employer]: : 1960 Requested By: GAVIN MENDEZ Order Number: [id number] Reading MD: Measurements Intervals [place] Rate: 63 P: 68 [place]: 146 QRS: 57 QRSD: 76 T: 66 QT: 394 QTc: 406 Interpretive Statements SINUS RHYTHM NORMAL ECG RI6.02 No previous ECG available for comparison
[2020-05-16 23:34] LABS: BASO # 0.1 x10^3/uL (0.0-0.2); BASO % 1 % (0-3); EOS # 0.3 x10^3/uL (0.0-0.7); EOS % 4 % (0-3); HEMATOCRIT 36.9 % (36.0-47.0); HEMOGLOBIN 12.2 g/dL (12.0-15.5); LYMPH # 2.7 x10^3/uL (1.0-4.8); LYMPH % 46 % (24-48); MEAN CORPUSCULAR HEMOGLOBIN 30 pg (25-35); MEAN CORPUSCULAR HGB CONC 33 g/dL (31-37); MEAN CORPUSCULAR VOLUME 92 fL (79-100); MONO # 0.6 x10^3/uL (0.0-1.1); MONO % 10 % (0-9); NEUT # 2.3 x10^3/uL (1.8-7.7); NEUT % 39 % (31-73); PLATELET COUNT 217 x10^3/uL (140-400); RED BLOOD COUNT 4.03 x10^6/uL (3.50-5.40); RED CELL DISTRIBUTION WIDTH 15.1 % (11.5-14.5)
[2020-05-16] MEDS: HYDROmorphone 2 MG/ML VIAL IVP ONE (23:40)
[2020-05-16] MEDS: ONDANSETRON PF 4 MG/2 ML VIAL. IVP ONE (23:43)
[2020-05-16 23:44] LABS: CALCIUM 10.1 mg/dL (8.5-10.1); GFR 68.7; POTASSIUM 3.9 mmol/L (3.5-5.1)
--- NOTE | 2020-05-16 23:45 | ED.ADGEN ---
Past Medical History Past Medical History: Anemia, Anxiety, Arthritis, CAD, COPD, GERD, High Cholesterol, Heart Disease, Hypertension, Other Additional Past Medical Histor: AAA, mechanical heart valve,bulge disc(back), chronic back Past Surgical History: Hysterectomy, Other Additional Past Surgical Histo: mechanical valve,AAA repair 11/2013 Smoking Status: Never Smoker Alcohol Use: None Drug Use: None General Adult EDM: Chief Complaint: CHEST PAIN HPI: HPI: Patient is a 60 year old female coming in for left-sided chest pain rating to her neck, back, and lower extremity. She is the pain started about 3. Around 6 PM she took her hydralazine and went to lay down. States pain is getting worse. Has a history of a type a dissection status post graft in 2013. Was told there is still a "hole" that she felt fine prior. Denies any recent illness, fevers, cough, shortness of breath. She feels tingling in her left lower extremity. Is on Coumadin. Has received her first flu vaccine 2 weeks ago. No known Covid exposures. Review of Systems: Review of Systems: All other systems within normal limits except for as noted in the HPI Current Medications: Current Medications Medications (Trade) Dose Ordered Sig/Mario Alberto Start Time Stop Time Status Last Admin Dose Admin Fentanyl Citrate (Fentanyl 2ml Vial) 100 mcg 1X ONCE 05/17/20 02:30 05/17/20 02:31 DC Hydromorphone HCl (Dilaudid) 1 mg 1X ONCE 05/17/20 02:00 05/17/20 02:01 DC Info (CONTRAST GIVEN -- Rx MONITORING) 1 each PRN DAILY PRN 05/17/20 00:45 05/19/20 00:44 Iohexol (Omnipaque 350 Mg/ml) 100 ml 1X ONCE 05/17/20 01:00 05/17/20 01:01 DC 05/17/20 01:06 100 ML Labetalol HCl 250 mg/Sodium Chloride 250 ml @ 30 mls/hr CONT PRN 05/16/20 23:30 05/17/20 01:21 30 MLS/HR Nicardipine HCl 50 mg/Sodium Chloride 250 ml @ 25 mls/hr CONT PRN 05/16/20 23:30 05/16/20 23:51 25 MLS/HR Ondansetron HCl (Zofran) 4 mg 1X ONCE 05/17/20 00:00 05/17/20 00:01 DC 05/16/20 23:43 4 MG Allergies: Allergies: Allergies Coded Allergies Type Severity Reaction Last Updated Verified morphine Allergy Intermediate HEADACHE 05/16/20 Yes Physical Exam: PE: Constitutional: Well developed, well nourished, no acute distress, non-toxic appearance. [] HENT: Normocephalic, atraumatic, bilateral external ears normal, nose normal. [] Eyes: PERRLA, conjunctiva normal, no discharge. [] Neck: No rigidity, supple, no stridor. [] Cardiovascular: Regular rate and rhythm, brisk cap refill. Symmetric radial and DP pulses. [] Lungs & Thorax: Non labored symmetric respirations, no tachypnea or respiratory distress [] Abdomen: Soft, nondistended. Skin: Warm, dry, no erythema, no rash. [] Back: Unremarkable Extremities: No deformities, range of motion grossly intact, no lower extremity edema [] Neurologic: Alert and oriented X 3, no focal deficits noted. [] Psychologic: Affect normal, judgement normal, mood normal. [] Current Patient Data: Labs: Laboratory Tests Test 05/16/20 23:20 White Blood Count 6.0 x10^3/uL (4.0-11.0) Red Blood Count 4.03 x10^6/uL (3.50-5.40) Hemoglobin 12.2 g/dL (12.0-15.5) Hematocrit 36.9 % (36.0-47.0) Mean Corpuscular Volume 92 fL (79-100) Mean Corpuscular Hemoglobin 30 pg (25-35) Mean Corpuscular Hemoglobin Concent 33 g/dL (31-37) Red Cell Distribution Width 15.1 % (11.5-14.5) H Platelet Count 217 x10^3/uL (140-400) Neutrophils (%) (Auto) 39 % (31-73) Lymphocytes (%) (Auto) 46 % (24-48) Monocytes (%) (Auto) 10 % (0-9) H Eosinophils (%) (Auto) 4 % (0-3) H Basophils (%) (Auto) 1 % (0-3) Neutrophils # (Auto) 2.3 x10^3/uL (1.8-7.7) Lymphocytes # (Auto) 2.7 x10^3/uL (1.0-4.8) Monocytes # (Auto) 0.6 x10^3/uL (0.0-1.1) Eosinophils # (Auto) 0.3 x10^3/uL (0.0-0.7) Basophils # (Auto) 0.1 x10^3/uL (0.0-0.2) Prothrombin Time 25.2 SEC (11.7-14.0) H Prothrombin Time INR 2.3 (0.8-1.1) H D-Dimer (Tereza) 1.90 ug/mlFEU (0.00-0.50) H Sodium Level 141 mmol/L (136-145) Potassium Level 3.9 mmol/L (3.5-5.1) Chloride Level 103 mmol/L (98-107) Carbon Dioxide Level 29 mmol/L (21-32) Anion Gap 9 (6-14) Blood Urea Nitrogen 13 mg/dL (7-20) Creatinine 1.0 mg/dL (0.6-1.0) Estimated GFR (Cockcroft-Gault) 68.7 BUN/Creatinine Ratio 13 (6-20) Glucose Level 105 mg/dL (70-99) H Lactic Acid Level 1.0 mmol/L (0.4-2.0) Calcium Level 10.1 mg/dL (8.5-10.1) Magnesium Level 1.8 mg/dL (1.8-2.4) Total Bilirubin 0.3 mg/dL (0.2-1.0) Aspartate Amino Transferase (AST) 18 U/L (15-37) Alanine Aminotransferase (ALT) 21 U/L (14-59) Alkaline Phosphatase 143 U/L (46-116) H Troponin I Quantitative < 0.017 ng/mL (0.000-0.055) GJ-Olv-V-Type Natriuretic Peptide 675 pg/mL (0-124) H Total Protein 7.9 g/dL (6.4-8.2) Albumin 4.1 g/dL (3.4-5.0) Albumin/Globulin Ratio 1.1 (1.0-1.7) Laboratory Tests 05/16/20 23:20 Laboratory Tests 05/16/20 23:20 Vital Signs: Vital Signs Date Time Temp Pulse Resp B/P (MAP) Pulse Ox O2 Delivery O2 Flow Rate FiO2 05/17/20 01:57 56 94/58 (70) 89 Room Air 05/16/20 23:15 98.4 18 98.4 EKG: EKG: Sinus rhythm, heart rate 60 bpm, normal axis, no ST elevation depression, no ectopy, normal intervals, T waves unremarkable [] Heart Score: C/O Chest Pain: Yes HEART Score for Chest Pain: HEART Score for Chest Pain Response (Comments) Value History Moderately Suspicious 1 ECG Normal 0 Age >45 - < 65 1 Risk Factors >3 Risk Factors or Hx CAD 2 Troponin < Normal Limit 0 Total 4 Risk Factors: Risk Factors: DM, Current or recent (<one month) smoker, HTN, HLP, family history of CAD, obesity. Risk Scores: Score 0 - 3: 2.5% MACE over next 6 weeks - Discharge Home Score 4 - 6: 20.3% MACE over next 6 weeks - Admit for Clinical Observation Score 7 - 10: 72.7% MACE over next 6 weeks - Early Invasive Strategies Radiology/Procedures: Radiology/Procedures: CTA CHEST_ABDOMEN_AND PELVIS Clinical Indication: Chest pain. History of aortic dissection COMPARISON: 09/28/2017 TECHNIQUE: Multiple contiguous axial images were obtained throughout the chest, abdomen, and pelvis with the use of IV contrast. Axial images were reformatted into coronal and sagittal planes. MIP reconstructions were obtained. 100 mL Omnipaque 350 was administered. One or more of the following dose reduction techniques were utilized: Automated exposure control (AEC), Adjustment of mA and/or kV according to patient size, Use of iterative reconstruction technique such as ASiR, CT scan done according to ALARA and image gently/image wisely. Findings: Redemonstration of an aortic dissection originating proximal to the right brachiocephalic origin. In the right neck, dissection flap extends into the brachiocephalic artery and on into the right common carotid artery, extending superiorly beyond the [id number]. In the left neck, dissection flap extends into the proximal aspect of the left common carotid artery as well as into the left subclavian artery, and on into the left axillary artery beyond the [id number]. 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 Both vertebral arteries arise from the true lumen. Ascending thoracic aorta measures 2.9 cm at the level of the right pulmonary artery, which is unchanged. Descending thoracic aorta measures 3.7 cm at the same level, which is unchanged. Aneurysmal dilatation of the aortic arch just distal to the left subclavian artery measures 7.4 cm in diameter, previously 5.5 cm on exam of 09/28/2017. Crescentic soft tissue along the posterolateral aspect of this aneurysm. Intra-abdominally, dissection flap extends down to the left renal artery and partially into the left renal artery base, without significant stenosis. Right renal artery arises from the true lumen. Flap extends down into the superior mesenteric artery, which is mildly dilated measuring 1.1 cm in diameter with a prominent false lumen. Celiac artery arises from the true lumen. Suprarenal abdominal aorta measures up to 3.5 cm in diameter, unchanged. Infrarenal abdominal aorta measures up to 3.2 cm in diameter, previously 2.9 cm. Moderate aortic atherosclerotic disease. The thyroid is symmetric. There is no axillary, mediastinal, or hilar adenopathy. The thoracic aorta diameter is normal. The cardiac size is normal. Aortic valve prosthesis. Coronary artery atherosclerotic disease. There is no pericardial effusion. The central airways are patent. No pulmonary mass or consolidation. Paraseptal emphysema. No pleural effusion is observed. There is no pneumothorax. Prominent right hepatic cysts. Right inferior hepatic hyperenhancing enhancing focus, probably hemangioma. Gallbladder, spleen, pancreas, and adrenal glands are unremarkable. The kidneys are unremarkable. There is no significant mesenteric or retroperitoneal adenopathy identified. There is no evidence of free intraperitoneal fluid or pneumoperitoneum. Visualized portions of the bowel are grossly unremarkable. Bladder is unremarkable. There is no significant pelvic ascites. No significa nt iliac or inguinal adenopathy is identified. No acute osseous abnormality. Degenerative changes of the spine. IMPRESSION: Redemonstration of a dissection of the thoracoabdominal aorta extending from the ascending aorta proximal to the right brachiocephalic artery and down to the level of the left renal artery. Although the overall extent stent of the visualized dissection flap is unchanged, there is increasing aneurysmal dilatation of the aortic arch just distal to the left subclavian artery measuring up to 7.4 cm in diameter, previously 5.5 cm on exam of 09/28/2017. Crescentic soft tissue along the posterolateral aspect of the false lumen at this level (distal to the left subclavian origin) could represent mural thrombus or potentially intramural hematoma, although no noncontrast CT for comparison. [] Course & Med Decision Making: Course & Med Decision Making Patient stating feels just like her previous dissection. Has symmetric upper extremity blood pressures and radial and DP pulses. No neuro deficits. Heart rate is in the mid 60s hypertensive. Immediately started on nicardipine and labetalol for blood pressure management pending CTA. Because the radiologist and dissection flaps look stable however there is a 2 cm increase in her thoracic aortic aneurysm with possible intramural hematoma. No cardiothoracic surgery available at this facility. Richard transfer patient and she would like to go to [facility]. Told to [facility] transfer line at [id number], patient accepted for transfer by cardiothoracic surgeon Dr. Rosales. Total critical care time: 60 The time involved in the performance of separately reportable/billable procedures was not counted toward critical care time. Due to a high probability of clinically significant, life-threatening d eterioration the patient required a high level of care to intervene emergently and I personally spent this critical time directly and personally managing the patient. The critical care time included obtaining a history, examination of the patient, assessment of vital signs, ordering and review of studies, arranging urgent treatment with development of a management plan, evaluation of patient's response to treatment, frequent reassessment, and discussions with other providers and/or family members. Jaky Disclaimer: Jaky Disclaimer: This electronic medical record was generated, in whole or in part, using a voice recognition dictation system. Departure Departure Impression: Primary Impression: Thoracic aortic aneurysm Disposition: 02 DC/TRF OTHER SHORT TERM HOS Condition: CRITICAL Referrals: UNKNOWN PCP NAME (PCP) GAVIN MENDEZ MD May 16, 2020 23:45
[2020-05-16 23:50] LABS: ALBUMIN 4.1 g/dL (3.4-5.0); ALBUMIN/GLOBULIN RATIO 1.1 (1.0-1.7); MAGNESIUM 1.8 mg/dL (1.8-2.4); TOTAL BILIRUBIN 0.3 mg/dL (0.2-1.0); TOTAL PROTEIN 7.9 g/dL (6.4-8.2)
--- NOTE | 2020-05-17 00:14 | RAD ---
XR CHEST 1V INDICATION: chest pain . COMPARISON STUDY: Radiograph 09/28/2017. CTA 09/28/2017. FINDINGS: Lungs: Normal lung volume. No pulmonary mass or consolidation. The tracheobronchial tree and hilar st ructures are normal. Pleura: No pleural effusion or pneumothorax. Heart and Mediastinum: Normal cardiac size. Marked tortuosity of the thoracic aorta. IMPRESSION: No consolidation. Electronically signed by: Kristofer Abdul MD (05/17/2020 12:12 AM) [id number]
[2020-05-17 00:38] LABS: PROTHROMBIN TIME PATIENT 25.2 SEC (11.7-14.0)
[2020-05-17] MEDS ORDERED: CONTRAST GIVEN. MC PRN (00:45)
[2020-05-17] MEDS: HYDROmorphone 2 MG/ML VIAL IVP ONE (00:45)
[2020-05-17] MEDS: IOHEXOL 350 MG/ML 100 ML VIAL. IV ONE (01:06)
[2020-05-17] MEDS: LABETALOL IV PRN (01:21)
[2020-05-17] MEDS: NORMAL SALINE IV PRN (01:21)
--- NOTE | 2020-05-17 01:54 | RAD ---
CTA CHEST_ABDOMEN_AND PELVIS Clinical Indication: Chest pain. History of aortic dissection COMPARISON: 09/28/2017 TECHNIQUE: Multiple contiguous axial images were obtained throughout the chest, abdomen, and pelvis with the use of IV contrast. Axial images were reformatted into coronal and sagittal planes. MIP reconstructions were obtained. 100 mL Omnipaque 350 was administered. One or more of the following dose reduction gio hniques were utilized: Automated exposure control (AEC), Adjustment of mA and/or kV according to kailee ent size, Use of iterative reconstruction technique such as ASiR, CT scan done according to ALARA and image gently/image wisely. Findings: Redemonstration of an aortic dissection originating proximal to the right brachiocephalic origin. In the right neck, dissection flap extends into the brachiocephalic artery and on into the right comm on carotid artery, extending superiorly beyond the [id number]. In the left neck, dissection flap e xtends into the proximal aspect of the left common carotid artery as well as into the left subclavian artery, and on into the left axillary artery beyond the [id number]. 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 Both vertebral yolanda regina arise from the true lumen. Ascending thoracic aorta measures 2.9 cm at the level of the right pulmonary artery, which is unchang ed. Descending thoracic aorta measures 3.7 cm at the same level, which is unchanged. Aneurysmal dilat ation of the aortic arch just distal to the left subclavian artery measures 7.4 cm in diameter, previ ously 5.5 cm on exam of 09/28/2017. Crescentic soft tissue along the posterolateral aspect of this ane urysm. Intra-abdominally, dissection flap extends down to the left renal artery and partially into the left renal artery base, without significant stenosis. Right renal artery arises from the true lumen. Flap extends down into the superior mesenteric artery, which is mildly dilated measuring 1.1 cm in diamete r with a prominent false lumen. Celiac artery arises from the true lumen. Suprarenal abdominal aorta measures up to 3.5 cm in diameter, unchanged. Infrarenal abdominal aorta m easures up to 3.2 cm in diameter, previously 2.9 cm. Moderate aortic atherosclerotic disease. The thyroid is symmetric. There is no axillary, mediastinal, or hilar adenopathy. The thoracic aorta diameter is normal. The cardiac size is normal. Aortic valve prosthesis. Coronary artery atherosclerotic disease. There is no pericardial effusion. The central airways are patent. No pulmonary mass or consolidation. Paraseptal emphysema. No pleural effusion is observed. There is n o pneumothorax. Prominent right hepatic cysts. Right inferior hepatic hyperenhancing enhancing focus, probably jessica ioma. Gallbladder, spleen, pancreas, and adrenal glands are unremarkable. The kidneys are unremarkab le. There is no significant mesenteric or retroperitoneal adenopathy identified. There is no eviden ce of free intraperitoneal fluid or pneumoperitoneum. Visualized portions of the bowel are grossly u nremarkable. Bladder is unremarkable. There is no significant pelvic ascites. No significant iliac or inguinal a denopathy is identified. No acute osseous abnormality. Degenerative changes of the spine. IMPRESSION: Redemonstration of a dissection of the thoracoabdominal aorta extending from the ascending aorta prox imal to the right brachiocephalic artery and down to the level of the left renal artery. Although the overall extent stent of the visualized dissection flap is unchanged, there is increasing aneurysmal dilatation of the aortic arch just distal to the left subclavian artery measuring up to 7.4 cm in xiomara meter, previously 5.5 cm on exam of 09/28/2017. Crescentic soft tissue along the posterolateral aspect of the false lumen at this level (distal to the left subclavian origin) could represent mural thromb us or potentially intramural hematoma, although no noncontrast CT for comparison. Findings were discussed with Dr. Sage at 05/17/2020 1:30 AM. Electronically signed by: Kristofer Abdul MD (05/17/2020 1:52 AM) [id number]
[2020-05-17] MEDS ORDERED: HYDROmorphone 2 MG/ML VIAL IVP ONE (02:00)
[2020-05-17] MEDS: fentaNYL PF VIAL 100 MCG/2 ML VIAL IVP ONE (02:30)
[2020-05-17 03:17] VITALS: BP 84/54
== END 2020-05-17 03:20 | disposition short-term general hospital (02) ==
LOC: ER 23:11
DX: I71.2 Thoracic aortic aneurysm, without rupture (principal); M54.2 Cervicalgia; M54.9 Dorsalgia, unspecified; M79.605 Pain in left leg; J44.9 Chronic obstructive pulmonary disease, unspecified; E78.00 Pure hypercholesterolemia, unspecified; I25.10 Atherosclerotic heart disease of native coronary artery without angina pectoris; K21.9 Gastro-esophageal reflux disease without esophagitis; I11.9 Hypertensive heart disease without heart failure; G89.29 Other chronic pain; Z90.710 Acquired absence of both cervix and uterus; Z88.5 Allergy status to narcotic agent
CPT/HCPCS: 36415; 71045; 71275; 74174; 80053; 83605; 83735; 83880; 84484; 85025; 85379; 85610; 93005; 96365; 96366; 96368; 96375; 96376; 99291; J1170; J2405; J3010; J3490; J7050; Q9967; J7030

== ENCOUNTER 2020-12-06 14:35 | Observation (INO) | payer MEDICAID ==
[~2020-12-06] VITALS: Ht 180.3 cm; Wt 75.8 kg
--- NOTE | 2020-12-06 15:18 | ED.ADGEN ---
Past Medical History Past Medical History: Anemia, Anxiety, Arthritis, CAD, COPD, GERD, High Cholesterol, Heart Disease, Hypertension, Other Additional Past Medical Histor: AAA, mechanical heart valve,bulge disc(back), chronic back Past Surgical History: Hysterectomy, Other Additional Past Surgical Histo: mechanical valve,AAA repair 11/2013, aortic tear repair (May 2020), stent Smoking Status: Former Smoker Alcohol Use: None Drug Use: None General Adult EDM: Chief Complaint: CHEST PAIN HPI: HPI: Patient is a 60 year old female coming in for 2 days of right-sided chest pain radiating to her right shoulder. Patient says she woke up with the pain has been gradually getting worse. Has a history significant for severe and diffuse aortic dissection. Patient was seen in this ED and transferred to 7 months ago with his dissections. She states that nothing makes the pain better except for a little bit relieved by lying down flat. Had a surgery on her dissection x14, went to the OR twice 7 months ago while she was at and spends 3 to 4 weeks in the ICU there. Patient also has femoral stents Review of Systems: Review of Systems: Constitutional: Denies fever or chills. [] Eyes: Denies change in visual acuity. [] HENT: Denies nasal congestion or sore throat. [] Respiratory: Denies cough or shortness of breath. [] Cardiovascular: Denies chest pain or edema. [] GI: Denies abdominal pain, nausea, vomiting, bloody stools or diarrhea. [] : Denies dysuria. [] Musculoskeletal: Denies back pain or joint pain. [] Integument: Denies rash. [] Neurologic: Denies headache, focal weakness or sensory changes. [] Endocrine: Denies polyuria or polydipsia. [] Lymphatic: Denies swollen glands. [] Psychiatric: Denies depression or anxiety. [] Current Medications: Current Medications Medications (Trade) Dose Ordered Sig/Mario Alberto Start Time Stop Time Status Last Admin Dose Admin Acetaminophen (Tylenol) 650 mg PRN Q6HRS PRN 12/06/20 18:45 Carvedilol (Coreg) 12.5 mg STK-MED ONCE 12/06/20 18:35 12/06/20 18:35 DC Esmolol HCl (Brevibloc) 35 mg 1X ONCE 12/06/20 15:30 12/06/20 15:31 DC 12/06/20 15:32 35 MG Fentanyl Citrate (Fentanyl 2ml Vial) 25 mcg PRN Q3HRS PRN 12/06/20 18:45 12/07/20 05:51 25 MCG Hydralazine HCl (Apresoline Inj) 10 mg PRN Q4HRS PRN 12/06/20 18:45 Hydromorphone HCl (Dilaudid) 0.5 mg PRN Q2HRS PRN 12/06/20 18:45 Info (CONTRAST GIVEN -- Rx MONITORING) 1 each PRN DAILY PRN 12/06/20 16:00 12/08/20 15:59 Iohexol (Omnipaque 350 Mg/ml) 90 ml 1X ONCE 12/06/20 15:45 12/06/20 15:46 DC 12/06/20 16:30 90 ML Ondansetron HCl (Zofran) 4 mg PRN Q4HRS PRN 12/06/20 18:45 Oxycodone/ Acetaminophen (Percocet 5/325) 1 tab PRN Q6HRS PRN 12/06/20 18:45 12/07/20 02:44 1 TAB Senna/Docusate Sodium (Senna Plus) 2 tab PRN BID PRN 12/06/20 18:45 Sodium Chloride (Normal Saline Flush) 3 ml QSHIFT PRN 12/06/20 18:45 Tramadol HCl (Ultram) 50 mg PRN Q6HRS PRN 12/06/20 18:45 Warfarin Sodium (Coumadin Per Physician) 1 each PRN DAILY PRN 12/06/20 19:00 12/07/20 07:48 1 EACH Warfarin Sodium (Coumadin) 5 mg DAILY16 12/06/20 19:00 12/06/20 19:52 5 MG Allergies: Allergies: Physical Exam: PE: Constitutional: Well developed, well nourished, no acute distress, non-toxic appearance. [] HENT: Normocephalic, atraumatic, bilateral external ears normal, oropharynx chon st, no oral exudates, nose normal. [] Eyes: PERRLA, EOMI, conjunctiva normal, no discharge. [] Neck: Normal range of motion, no tenderness, supple, no stridor. [] Cardiovascular:Heart rate regular rhythm, no murmur [] Lungs & Thorax: Bilateral breath sounds clear to auscultation [] Abdomen: Bowel sounds normal, soft, no tenderness, no masses, no pulsatile masses. [] Skin: Warm, dry, no erythema, no rash. [] Back: No tenderness, no CVA tenderness. [] Extremities: No tenderness, no cyanosis, no clubbing, ROM intact, no edema. [] Neurologic: Alert and oriented X 3, normal motor function, normal sensory function, no focal deficits noted. [] Psychologic: Affect normal, judgement normal, mood normal. [] Current Patient Data: Labs: Laboratory Tests Test 12/06/20 14:50 12/06/20 16:58 White Blood Count 5.0 x10^3/uL (4.0-11.0) Red Blood Count 3.34 x10^6/uL (3.50-5.40) L Hemoglobin 9.1 g/dL (12.0-15.5) L Hematocrit 28.0 % (36.0-47.0) L Mean Corpuscular Volume 84 fL (79-100) Mean Corpuscular Hemoglobin 27 pg (25-35) Mean Corpuscular Hemoglobin Concent 33 g/dL (31-37) Red Cell Distribution Width 21.5 % (11.5-14.5) H Platelet Count 333 x10^3/uL (140-400) Neutrophils (%) (Auto) 51 % (31-73) Lymphocytes (%) (Auto) 33 % (24-48) Monocytes (%) (Auto) 11 % (0-9) H Eosinophils (%) (Auto) 3 % (0-3) Basophils (%) (Auto) 1 % (0-3) Neutrophils # (Auto) 2.6 x10^3/uL (1.8-7.7) Lymphocytes # (Auto) 1.7 x10^3/uL (1.0-4.8) Monocytes # (Auto) 0.6 x10^3/uL (0.0-1.1) Eosinophils # (Auto) 0.2 x10^3/uL (0.0-0.7) Basophils # (Auto) 0.0 x10^3/uL (0.0-0.2) Platelet Estimate Adequate (ADEQUATE) Polychromasia Slight Hypochromasia Slight Anisocytosis Mod Prothrombin Time 20.9 SEC (11.7-14.0) H Prothrombin Time INR 1.8 (0.8-1.1) H D-Dimer (Tereza) 3.54 ug/mlFEU (0.00-0.50) H Sodium Level 140 mmol/L (136-145) Potassium Level 4.3 mmol/L (3.5-5.1) Chloride Level 103 mmol/L (98-107) Carbon Dioxide Level 29 mmol/L (21-32) Anion Gap 8 (6-14) Blood Urea Nitrogen 14 mg/dL (7-20) Creatinine 1.0 mg/dL (0.6-1.0) Estimated GFR (Cockcroft-Gault) 68.7 BUN/Creatinine Ratio 14 (6-20) Glucose Level 98 mg/dL (70-99) Calcium Level 9.7 mg/dL (8.5-10.1) Phosphorus Level 3.6 mg/dL (2.6-4.7) Magnesium Level 1.8 mg/dL (1.8-2.4) Total Bilirubin 0.4 mg/dL (0.2-1.0) Aspartate Amino Transferase (AST) 24 U/L (15-37) Alanine Aminotransferase (ALT) 23 U/L (14-59) Alkaline Phosphatase 239 U/L (46-116) H Troponin I Quantitative < 0.017 ng/mL (0.000-0.055) VG-Fhk-S-Type Natriuretic Peptide 1070 pg/mL (0-124) H Total Protein 7.7 g/dL (6.4-8.2) Albumin 3.3 g/dL (3.4-5.0) L Albumin/Globulin Ratio 0.8 (1.0-1.7) L Urine Collection Type Unknown Urine Color Yellow Urine Clarity Clear Urine pH 6.5 (<5.0-8.0) Urine Specific [place] >=1.030 (1.000-1.030) Urine Protein Negative mg/dL (NEG-TRACE) Urine Glucose (UA) Negative mg/dL (NEG) Urine Ketones (Stick) Negative mg/dL (NEG) Urine Blood Small (NEG) Urine Nitrite Negative (NEG) Urine Bilirubin Negative (NEG) Urine Urobilinogen Dipstick 1.0 mg/dL (0.2 mg/dL) Urine Leukocyte Esterase Negative (NEG) Urine RBC 1-2 /HPF (0-2) Urine WBC Occ /HPF (0-4) Urine Squamous Epithelial Cells Mod /LPF Urine Bacteria Moderate /HPF (0-FEW) Laboratory Tests 12/06/20 14:50 Laboratory Tests 12/06/20 14:50 Vital Signs: Vital Signs Date Time Temp Pulse Resp B/P (MAP) Pulse Ox O2 Delivery O2 Flow Rate FiO2 12/06/20 18:59 69 20 125/65 (85) 97 Room Air 12/06/20 14:44 98.2 98.2 EKG: EKG: Sinus rhythm, heart rate 81 beats minute, normal axis, no ST elevation or depression, no ectopy [] Heart Score: C/O Chest Pain: Yes HEART Score for Chest Pain: HEART Score for Chest Pain Response (Comments) Value History Moderately Suspicious 1 ECG Nonspecific Repolarizatio 1 Age >45 - < 65 1 Risk Factors >3 Risk Factors or Hx CAD 2 Troponin < Normal Limit 0 Total 5 Risk Factors: Risk Factors: DM, Current or recent (<one month) smoker, HTN, HLP, family history of CAD, obesity. Risk Scores: Score 0 - 3: 2.5% MACE over next 6 weeks - Discharge Home Score 4 - 6: 20.3% MACE over next 6 weeks - Admit for Clinical Observation Score 7 - 10: 72.7% MACE over next 6 weeks - Early Invasive Strategies Radiology/Procedures: Radiology/Procedures: [facility] [id number] [place] [address] IMAGING REPORT Signed PATIENT: GINO CARLOS RACCOUNT: [id number] : 1960 LOCATION: ER AGE: 60 SEX: F EXAM STATUS: REG ER ORD. PHYSICIAN: GAVIN MENDEZ MD REASON: dissection PROCEDURE: CT ANGIO CHEST ABD PELVIS CTA chest, abdomen and pelvis without and with IV contrast. INDICATION: Dissection. TECHNIQUE: CTA chest, abdomen and pelvis without and with IV contrast. 3-D volume rendering, MIP coronal and sagittal reformatted to obtain Comparison: 05/17/2020 Exposure: One or more of the following individualized dose reduction techniques were utilized for this examination: 1. Automated exposure control 2. Adjustment of the mA and/or kV according to patient size 3. Use of iterative reconstruction technique. FINDINGS: VASCULAR: Aortic valve replacement. Interval post endovascular graft placement from proximal aortic arch to the aortic hiatus. Large thrombosed excluded aneurysmal sac with including previously seen dissection flap in the distal aortic arch/proximal thoracic aorta measures approximately 4.1 cm. Faint contrast seen within the excluded aneurysmal sac along the medial aspect of the endovascular graft at the level of the aortic arch, supplied by small spinal arteries/veins (series 5 image 30). The ascending thoracic aorta is tortuous without dilatation. 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 The right brachiocephalic artery is patent. 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 The left vertebral artery likely arises from the true lumen. Abdominal aortic dissection extends from the distal edge of the endovascular stent to the level of the left renal artery origin. The celiac trunk and right renal artery are arising from the true lumen and appear patent. SMA arises from both true and false lumen with dissection flap extends to the mid/distal segment, unchanged since prior exam. Left renal artery and DELVIN are patent. Unchanged mild infrarenal abdominal aortic aneurysm measures up to 3.0 cm. New small dissections in the right distal common and right distal external iliac arteries. Moderate vascular calcifications involving bilateral common, internal and external iliac arteries without significant narrowing. Bilateral common femoral, and visualized femoral and superficial femoral arteries are patent. NONVASCULAR: Visualized thyroid and esophagus are unremarkable. No lymphadenopathy in the chest by size criteria. Cardiomegaly. No pericardial effusion. Pulmonary arteries are normal in caliber. Central airways are patent. Mild centrilobular and paraseptal emphysema in the upper lobes. Bibasilar subsegmental atelectasis versus scarring. No focal consolidation, pleural effusion or pneumothorax. No suspicious pulmonary nodule. Increasing size of right hepatic lobe cystic lesion, now demonstrates faint internal densities, measures 9.6 x 7.8 cm, previously 6.5 x 4.9 cm. Gallbladder, biliary ducts, spleen, pancreas and adrenals are unremarkable. No hydronephrosis or nephrolithiasis in either kidney. No bowel obstruction. No lymphadenopathy by size criteria. No pneumoperitoneum or ascites. Unremarkable urinary bladder. Hysterectomy changes. Multilevel changes in the spine. Median sternotomy wires. Small fat-containing umbilical hernia. Postsurgical changes in the right groin region. IMPRESSION: 1. Interval post endovascular graft placement from the proximal aortic arch to the aortic hiatus. Faint contrast seen within the excluded aneurysmal sac along the medial aspect of the graft at the level of the aortic arch, supplied by small spinal arteries/veins, likely type II endoleak. 2. Unchanged dissections and aneurysms of the great vessels and abdominal aorta as described in detail above. New small dissections in the right distal common and distal external iliac arteries. 3. Interval increase in size of right hepatic lobe cystic lesion, now measuring 9.6 cm, previously 6.5 cm. This cyst demonstrates faint internal densities, may reflect internal bleeding. Recommend further evaluation with abdominal ultrasound. Electronically signed by: Ida Harmon MD (12/06/2020 5:07 PM) [facility] DICTATED and SIGNED BY: IDA HARMON MD DATE: 12/06/20 [id number] 0 [] Course & Med Decision Making: Course & Med Decision Making Pertinent Labs and Imaging studies reviewed. (See chart for details) 1715: Consult to for cardiac surgery to evaluate CTs. Patient's pain controlled at this time patient's blood pressure responded well to esmolol Per cardiothoracic surgeon Dr. 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 This recommend her following up. As far as pain control for the growing liver mass she can be admitted to general surgery. They recommend increasing blood pressure medications as she was not controlled on initial presentation with her current regimen. Discussed patient with Dr. Oneill from general surgery, they will see her inpatient. Admitted to the hospitalist, Dr. Flores [] Jaky Disclaimer: Jaky Disclaimer: This electronic medical record was generated, in whole or in part, using a voice recognition dictation system. Departure Departure Impression: Primary Impression: Type II endoleak of aortic graft Additional Impressions: Dissection of aorta Hepatic cyst Hypertension Disposition: 09 ADMITTED INPATIENT Admitting Physician: FIONA Condition: CRITICAL Referrals: NO PCP (PCP) Problem Qualifiers GAVIN MENDEZ MD Dec 06, 2020 15:18
[2020-12-06 15:26] LABS: BASO % 1 % (0-3); EOS # 0.2 x10^3/uL (0.0-0.7); EOS % 3 % (0-3); HEMOGLOBIN 9.1 g/dL (12.0-15.5); LYMPH # 1.7 x10^3/uL (1.0-4.8); LYMPH % 33 % (24-48); MEAN CORPUSCULAR HEMOGLOBIN 27 pg (25-35); MEAN CORPUSCULAR HGB CONC 33 g/dL (31-37); MEAN CORPUSCULAR VOLUME 84 fL (79-100); MONO # 0.6 x10^3/uL (0.0-1.1); MONO % 11 % (0-9); NEUT # 2.6 x10^3/uL (1.8-7.7); NEUT % 51 % (31-73); PLATELET COUNT 333 x10^3/uL (140-400); RED BLOOD COUNT 3.34 x10^6/uL (3.50-5.40); RED CELL DISTRIBUTION WIDTH 21.5 % (11.5-14.5)
[2020-12-06] MEDS ORDERED: HYDROmorphone 2 MG/ML VIAL IVP ONE (15:30)
[2020-12-06] MEDS ORDERED: ESMOLOL 100 MG/10 ML VIAL. IVP ONE (15:30)
[2020-12-06] MEDS ORDERED: ESMOLOL 2500MG/250ML PREMIX 250 ML IV ONE (15:30)
[2020-12-06 15:35] LABS: CALCIUM 9.7 mg/dL (8.5-10.1); GFR 68.7; POTASSIUM 4.3 mmol/L (3.5-5.1)
[2020-12-06 15:38] LABS: PROTHROMBIN TIME PATIENT 20.9 SEC (11.7-14.0)
[2020-12-06 15:41] LABS: ALBUMIN 3.3 g/dL (3.4-5.0); ALBUMIN/GLOBULIN RATIO 0.8 (1.0-1.7); MAGNESIUM 1.8 mg/dL (1.8-2.4); PHOSPHORUS 3.6 mg/dL (2.6-4.7); TOTAL BILIRUBIN 0.4 mg/dL (0.2-1.0); TOTAL PROTEIN 7.7 g/dL (6.4-8.2)
[2020-12-06] MEDS ORDERED: IOHEXOL 350 MG/ML 100 ML VIAL. IV ONE (15:45)
[2020-12-06 15:53] LABS: D-DIMER 3.54 ug/mlFEU (0.00-0.50)
[2020-12-06] MEDS ORDERED: CONTRAST GIVEN. MC PRN (16:00)
[2020-12-06] MEDS: HYDROmorphone 2 MG/ML VIAL IVP PRN ×3 (16:05→18:19)
[2020-12-06 16:50] LABS: ANISOCYTOSIS MOD; HYPOCHROMIA SLIGHT; PLT ESTIMATE ADEQUATE (ADEQUATE); POLYCHROMASIA SLIGHT
--- NOTE | 2020-12-06 17:10 | RAD ---
CTA chest, abdomen and pelvis without and with IV contrast. INDICATION: Dissection. TECHNIQUE: CTA chest, abdomen and pelvis without and with IV contrast. 3-D volume rendering, MIP narinder nal and sagittal reformatted to obtain Comparison: 05/17/2020 Exposure: One or more of the following individualized dose reduction techniques were utilized for thi s examination: 1. Automated exposure control 2. Adjustment of the mA and/or kV according to patient size 3. Use of iterative reconstruction technique. FINDINGS: VASCULAR: Aortic valve replacement. Interval post endovascular graft placement from proximal aortic arch to the aortic hiatus. Large thrombosed excluded aneurysmal sac with including previously seen dissection fl ap in the distal aortic arch/proximal thoracic aorta measures approximately 4.1 cm. Faint contrast se en within the excluded aneurysmal sac along the medial aspect of the endovascular graft at the level of the aortic arch, supplied by small spinal arteries/veins (series 5 image 30). The ascending thorac ic aorta is tortuous without dilatation. 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 The right br achiocephalic artery is patent. 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 The left vertebral artery likely arises from the true lumen. Abdominal aortic dissection extends from the distal edge of the endovascular stent to the level of th e left renal artery origin. The celiac trunk and right renal artery are arising from the true lumen a nd appear patent. SMA arises from both true and false lumen with dissection flap extends to the mid/d istal segment, unchanged since prior exam. Left renal artery and DELVIN are patent. Unchanged mild infrarenal abdominal aortic aneurysm measures up to 3.0 cm. New small dissections in t he right distal common and right distal external iliac arteries. Moderate vascular calcifications inv olving bilateral common, internal and external iliac arteries without significant narrowing. Bilatera l common femoral, and visualized femoral and superficial femoral arteries are patent. NONVASCULAR: Visualized thyroid and esophagus are unremarkable. No lymphadenopathy in the chest by size criteria. Cardiomegaly. No pericardial effusion. Pulmonary arteries are normal in caliber. Central airways are patent. Mild centrilobular and paraseptal emphysema in the upper lobes. Bibasilar subsegmental atelec tasis versus scarring. No focal consolidation, pleural effusion or pneumothorax. No suspicious pulmon amairani nodule. Increasing size of right hepatic lobe cystic lesion, now demonstrates faint internal densities, measu res 9.6 x 7.8 cm, previously 6.5 x 4.9 cm. Gallbladder, biliary ducts, spleen, pancreas and adrenals are unremarkable. No hydronephrosis or nephrolithiasis in either kidney. No bowel obstruction. No lym phadenopathy by size criteria. No pneumoperitoneum or ascites. Unremarkable urinary bladder. Hysterec cam changes. Multilevel changes in the spine. Median sternotomy wires. Small fat-containing umbilical hernia. Post surgical changes in the right groin region. IMPRESSION: 1. Interval post endovascular graft placement from the proximal aortic arch to the aortic hiatus. Fa int contrast seen within the excluded aneurysmal sac along the medial aspect of the graft at the leve l of the aortic arch, supplied by small spinal arteries/veins, likely type II endoleak. 2. Unchanged dissections and aneurysms of the great vessels and abdominal aorta as described in beata il above. New small dissections in the right distal common and distal external iliac arteries. 3. Interval increase in size of right hepatic lobe cystic lesion, now measuring 9.6 cm, previously 6 .5 cm. This cyst demonstrates faint internal densities, may reflect internal bleeding. Recommend furt her evaluation with abdominal ultrasound. Electronically signed by: Mindy Harmon MD (12/06/2020 5:07 PM) [facility]
[2020-12-06 17:37] LABS: BILIRUBIN,URINE NEGATIVE (NEG); CLARITY,URINE CLEAR; COLOR,URINE YELLOW; NITRITE,URINE NEGATIVE (NEG); PH,URINE 6.5 (<5.0-8.0); PROTEIN,URINE NEGATIVE (NEG-TRACE)
[2020-12-06 17:50] LABS: BACTERIA,URINE MODERATE /HPF (0-FEW); WBC,URINE OCC /HPF (0-4)
[2020-12-06] MEDS ORDERED: QUET100T2 PO (18:31)
[2020-12-06] MEDS ORDERED: CARV25TA2 PO (18:31)
--- NOTE | 2020-12-06 18:34 | PDOC1 ---
History and Physical Date of Admission Date of Admission DATE: 12/06/20 TIME: 18:34 Identification/Chief Complaint Chief Complaint Chest pain Source Source: Patient History of Present Illness History of Present Illness Ms Echavarria is a 60 year old female w/ PMHx anemia, anxiety, GERD, HLD, HTN, AAA s/p repair 2013, s/p mechanical aortic valve repair and aortic dissection repair and revision with endografter 05/2020 who coms to ED c/o progressive right-sided chest pain radiating to her right shoulder. Patient says she woke up with the pain on 12/04, and though she was dehydrated and having a "stitch" in her side and drinking fluids helped for a day, but the pain has been gradually getting worse. She states that nothing makes the pain better except for a little bit relieved by lying down flat. Previously treated for diffuse aortic dissection at [facility] May of 2020. She notes angioplasty of her "lower arteries" as well. Initial BP 179/78. With known history of aortic dissection patient placed on esmolol gtt to which she responded well. EKG sinus rhythm rate 81 bpm normal axes and intervals no ST elevation or depression no TWI Labs with WBC 5, Hb 9.1, platelets 333, INR 1.8, D-dimer 3.54, NA 140, K4.3, BUN 14, CR 1, alkaline phosphatase 239, albumin 3.3 otherwise LFTs within normal laboratory limits, magnesium 1.8, NT proBNP 1070, troponin 0, urinalysis small blood otherwise negative leuk esterase negative nitrites. CT chest abdomen pelvis with likely type II endoleak and unchanged dissections aneurysms of the great vessels with new small dissection in the right distal common interest external iliac arteries as well as an increase in size right hepatic lobe cystic lesion increased from 6.5 cm to 9.6 cm with possible internal hemorrhagic changes. ED physician, Dr. Sage consulted for cardiac surgery to evaluate CTs and per cardiothoracic surgeon Dr. 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 This recommend her following up outpatient and increasing her antihypertensive regimen. Admitted for further care. Past Medical History Cardiovascular: CAD, HTN, Hyperlipidemia, Other Pulmonary: COPD CENTRAL NERVOUS SYSTEM: TIA GI: GERD Heme/Onc: Anemia NOS Hepatobiliary: No pertinent hx Psych: Anxiety Musculoskeletal: low back pain, Osteoarthritis Rheumatologic: Gout Infectious disease: No pertinent hx Renal/: Other Endocrine: No pertinent hx Past Surgical History Past Surgical History Anemia, Anxiety, Arthritis, CAD, COPD, GERD, High Cholesterol, Heart Disease, Hypertension, Other Additional Past Medical Histor: AAA, mechanical heart valve,bulge disc(back), chronic back Past Surgical History: Hysterectomy, Other Additional Past Surgical Histo: mechanical valve,AAA repair 11/2013, aortic tear repair (May 2020), stent Past Surgical History: Hysterectomy, Other Family History Family History: Cancer, Diabetes, Hypertension Social History Smoke: Quit ALCOHOL: none Drugs: None Current Problem List Problem List Problems Medical Problems: (1) Dissection of aorta Status: Acute (2) Hepatic cyst Status: Acute (3) Type II endoleak of aortic graft Status: Acute Current Medications Current Medications Current Medications Hydromorphone HCl (Dilaudid) 1 mg 1X ONCE IVP Last administered on 12/06/20at 15:26; Start 12/06/20 at 15:30; Stop 12/06/20 at 15:31; Status DC Esmolol HCl 250 ml @ 21.3 mls/hr 1X ONCE IV Last administered on 12/06/20at 15:40; Start 12/06/20 at 15:30; Stop 12/07/20 at 03:14 Esmolol HCl (Brevibloc) 35 mg 1X ONCE IVP Last administered on 12/06/20at 15:32; Start 12/06/20 at 15:30; Stop 12/06/20 at 15:31; Status DC Iohexol (Omnipaque 350 Mg/ml) 90 ml 1X ONCE IV Last administered on 12/06/20at 16:30; Start 12/06/20 at 15:45; Stop 12/06/20 at 15:46; Status DC Info (CONTRAST GIVEN -- Rx MONITORING) 1 each PRN DAILY PRN MC SEE COMMENTS; Start 12/06/20 at 16:00; Stop 12/08/20 at 15:59 Hydromorphone HCl (Dilaudid) 0.5 mg PRN Q1HR PRN IVP PAIN Last administered on 12/06/20at 18:19; Start 12/06/20 at 16:00; Stop 12/07/20 at 15:59 Active Scripts Active Percocet 5-325 Mg Tablet (Oxycodone/Acetaminophen) 1 Each Tablet 1 Tab PO PRN Q6HRS PRN Ventolin Hfa Inhaler (Albuterol Sulfate) 18 Gm Hfa.aer.ad 2 Puff INH Q4HRS PRN Zoloft (Sertraline Hcl) 50 Mg Tablet 50 Mg PO QHS Reported Carvedilol 25 Mg Tablet 1 Tab PO BID 30 Days Quetiapine Fumarate 100 Mg Tablet 1 Tab PO QHS 30 Days Atorvastatin Calcium 40 Mg Tablet 1 Tab PO QHS Xanax (Alprazolam) 1 Mg Tablet 1 Tab PO PRN QHS PRN Metoprolol Tartrate 25 Mg Tablet 25 Mg PO BID Losartan Potassium 50 Mg Tablet 50 Mg PO DAILY Zolpidem Tartrate 10 Mg Tablet 10 Mg PO PRN QHS PRN Warfarin Sodium 5 Mg Tablet 5 Mg PO DAILY16 Hydralazine Hcl 100 Mg Tablet 100 Mg PO BID Protonix (Pantoprazole Sodium) 40 Mg Tablet. 1 Tab PO DAILY Aspir 81 (Aspirin) 81 Mg Tablet.dr 81 Mg PO DAILY Allergies Allergies: Coded Allergies: morphine (Verified Allergy, Intermediate, HEADACHE, 05/16/20) Gives pt a bad DALTON ROS General: No: Chills, Night Sweats, Fatigue, Malaise, Appetite, Other PSYCHOLOGICAL ROS: No: Anxiety, Behavioral Disorder, Concentration difficultie, Decreased libido, Depression, Disorientation, Hallucinations, Hostility, Irritablity, Memory difficulties, Mood Swings, Obsessive thoughts, Physical abuse, Sexual abuse, Sleep disturbances, Suicidal ideation, Other Eyes: No Blurry vision, No Decreased vision, No Double vision, No Dry eyes, No Excessive tearing, No Eye Pain, No Itchy Eyes, No Loss of vision, No Photophobia, No Scotomata, No Uses contacts, No Uses glasses, No Other HEENT: No: Heacaches, Visual Changes, Hearing change, Nasal congestion, Nasal discharge, Oral lesions, Sinus pain, Sore Throat, Epistaxis, Sneezing, Snoring, Tinnitus, Vertigo, Vocal changes, Other ALLERGY AND IMMUNOLOGY: No: Hives, Insect Bite Sensitivity, Itchy/Watery Eyes, Nasal Congestion, Post Nasal Drip, Seasonal Allergies, Other Hematological and Lymphatic: No: Bleeding Problems, Blood Clots, Blood Transfusions, Brusing, Night Sweats, Pallor, Swollen Lymph Nodes, Other ENDOCRINE: No: Breast Changes, Galactorrhea, Hair Pattern Changes, Hot Flashes, Malaise/lethargy, Mood Swings, Palpitations, Polydipsia/polyuria, Skin Changes, Temperature Intolerance, Unexpected Weight Changes, Other Breast: No New/Changing Breast Lumps, No Nipple changes, No Nipple discharge, No Other Respiratory: No: Cough, Hemoptysis, Orthopnea, Pleuritic Pain, Shortness of breath, SOB with excertion, Sputum Changes, Stridor, Tachypnea, Wheezing, Other Cardiovascular: yes Chest Pain; No Palpitations, No Orthopnea, No Paroxysmal Noc. Dyspnea, No Edema, No Lt Headedness, No Other Gastrointestinal: No Nausea, No Vomiting, No Abdominal Pain, No Diarrhea, No Constipation, No Melena, No Hematochezia, No Other Genitourinary: No Dysuria, No Frequency, No Incontinence, No Hematuria, No Retention, No Discharge, No Urgency, No Pain, No Flank Pain, No Other, No , No , No , No , No , No , No Musculoskeletal: No Gait Disturbance, No Joint Pain, No Joint Stiffness, No Joint Swelling, No Muscle Pain, No Muscular Weakness, No Pain In:, No Swelling In:, No Other Neurological: No Behavorial Changes, No Bowel/Bladder ControlChng, No Confusion, No Dizziness, No Gait Disturbance, No Headaches, No Impaired Coord/balance, No Memory Loss, No Numbness/Tingling, No Seizures, No Speech Problems, No Tremors, No Visual Changes, No Weakness, No Other Skin: No Dry Skin, No Eczema, No Hair Changes, No Lumps, No Mole Changes, No Mottling, No Nail Changes, No Pruritus, No Rash, No Skin Lesion Changes, No Other, No Acne Physical Exam General: Alert, Oriented X3, Cooperative, mild distress HEENT: Atraumatic, PERRLA, EOMI, Mucous membr. moist/pink Lungs: Clear to auscultation, Normal air movement Heart: S1S2, RRR, no thrills, no rubs, murmurs (4/6 ANMOL) Abdomen: Normal bowel sounds, Soft, No tenderness, No hepatosplenomegaly, No masses Rectal Exam: not examined Extremities: No clubbing, No cyanosis, No edema, Normal pulses, No tenderness/swelling Skin: No rashes, No breakdown, No significant lesion Neuro: Normal gait, Normal speech, Strength at 5/5 X4 ext, Normal tone, Sensation intact, Cranial nerves 3-12 NL, Reflexes 2+ Psych/Mental Status: Mental status NL, Mood NL Vitals Vitals Vital Signs Date Time Temp Pulse Resp B/P (MAP) Pulse Ox O2 Delivery O2 Flow Rate FiO2 12/06/20 18:19 12 95 Room Air 12/06/20 17:30 74 124/78 (93) 12/06/20 14:44 98.2 98.2 Labs Labs Laboratory Tests Test 12/06/20 14:50 12/06/20 16:58 White Blood Count 5.0 x10^3/uL (4.0-11.0) Red Blood Count 3.34 x10^6/uL (3.50-5.40) Hemoglobin 9.1 g/dL (12.0-15.5) Hematocrit 28.0 % (36.0-47.0) Mean Corpuscular Volume 84 fL (79-100) Mean Corpuscular Hemoglobin 27 pg (25-35) Mean Corpuscular Hemoglobin Concent 33 g/dL (31-37) Red Cell Distribution Width 21.5 % (11.5-14.5) Platelet Count 333 x10^3/uL (140-400) Neutrophils (%) (Auto) 51 % (31-73) Lymphocytes (%) (Auto) 33 % (24-48) Monocytes (%) (Auto) 11 % (0-9) Eosinophils (%) (Auto) 3 % (0-3) Basophils (%) (Auto) 1 % (0-3) Neutrophils # (Auto) 2.6 x10^3/uL (1.8-7.7) Lymphocytes # (Auto) 1.7 x10^3/uL (1.0-4.8) Monocytes # (Auto) 0.6 x10^3/uL (0.0-1.1) Eosinophils # (Auto) 0.2 x10^3/uL (0.0-0.7) Basophils # (Auto) 0.0 x10^3/uL (0.0-0.2) Platelet Estimate Adequate (ADEQUATE) Polychromasia Slight Hypochromasia Slight Anisocytosis Mod Prothrombin Time 20.9 SEC (11.7-14.0) Prothromb Time International Ratio 1.8 (0.8-1.1) D-Dimer (Tereza) 3.54 ug/mlFEU (0.00-0.50) Sodium Level 140 mmol/L (136-145) Potassium Level 4.3 mmol/L (3.5-5.1) Chloride Level 103 mmol/L (98-107) Carbon Dioxide Level 29 mmol/L (21-32) Anion Gap 8 (6-14) Blood Urea Nitrogen 14 mg/dL (7-20) Creatinine 1.0 mg/dL (0.6-1.0) Estimated GFR (Cockcroft-Gault) 68.7 BUN/Creatinine Ratio 14 (6-20) Glucose Level 98 mg/dL (70-99) Calcium Level 9.7 mg/dL (8.5-10.1) Phosphorus Level 3.6 mg/dL (2.6-4.7) Magnesium Level 1.8 mg/dL (1.8-2.4) Total Bilirubin 0.4 mg/dL (0.2-1.0) Aspartate Amino Transf (AST/SGOT) 24 U/L (15-37) Alanine Aminotransferase (ALT/SGPT) 23 U/L (14-59) Alkaline Phosphatase 239 U/L (46-116) Troponin I Quantitative < 0.017 ng/mL (0.000-0.055) DH-Ukk-O-Type Natriuretic Peptide 1070 pg/mL (0-124) Total Protein 7.7 g/dL (6.4-8.2) Albumin 3.3 g/dL (3.4-5.0) Albumin/Globulin Ratio 0.8 (1.0-1.7) Urine Collection Type Unknown Urine Color Yellow Urine Clarity Clear Urine pH 6.5 (<5.0-8.0) Urine Specific [place] >=1.030 (1.000-1.030) Urine Protein Negative mg/dL (NEG-TRACE) Urine Glucose (UA) Negative mg/dL (NEG) Urine Ketones (Stick) Negative mg/dL (NEG) Urine Blood Small (NEG) Urine Nitrite Negative (NEG) Urine Bilirubin Negative (NEG) Urine Urobilinogen Dipstick 1.0 mg/dL (0.2 mg/dL) Urine Leukocyte Esterase Negative (NEG) Urine RBC 1-2 /HPF (0-2) Urine WBC Occ /HPF (0-4) Urine Squamous Epithelial Cells Mod /LPF Urine Bacteria Moderate /HPF (0-FEW) Laboratory Tests Test 12/06/20 14:50 12/06/20 16:58 White Blood Count 5.0 x10^3/uL (4.0-11.0) Red Blood Count 3.34 x10^6/uL (3.50-5.40) Hemoglobin 9.1 g/dL (12.0-15.5) Hematocrit 28.0 % (36.0-47.0) Mean Corpuscular Volume 84 fL (79-100) Mean Corpuscular Hemoglobin 27 pg (25-35) Mean Corpuscular Hemoglobin Concent 33 g/dL (31-37) Red Cell Distribution Width 21.5 % (11.5-14.5) Platelet Count 333 x10^3/uL (140-400) Neutrophils (%) (Auto) 51 % (31-73) Lymphocytes (%) (Auto) 33 % (24-48) Monocytes (%) (Auto) 11 % (0-9) Eosinophils (%) (Auto) 3 % (0-3) Basophils (%) (Auto) 1 % (0-3) Neutrophils # (Auto) 2.6 x10^3/uL (1.8-7.7) Lymphocytes # (Auto) 1.7 x10^3/uL (1.0-4.8) Monocytes # (Auto) 0.6 x10^3/uL (0.0-1.1) Eosinophils # (Auto) 0.2 x10^3/uL (0.0-0.7) Basophils # (Auto) 0.0 x10^3/uL (0.0-0.2) Platelet Estimate Adequate (ADEQUATE) Polychromasia Slight Hypochromasia Slight Anisocytosis Mod Prothrombin Time 20.9 SEC (11.7-14.0) Prothromb Time International Ratio 1.8 (0.8-1.1) D-Dimer (Tereza) 3.54 ug/mlFEU (0.00-0.50) Sodium Level 140 mmol/L (136-145) Potassium Level 4.3 mmol/L (3.5-5.1) Chloride Level 103 mmol/L (98-107) Carbon Dioxide Level 29 mmol/L (21-32) Anion Gap 8 (6-14) Blood Urea Nitrogen 14 mg/dL (7-20) Creatinine 1.0 mg/dL (0.6-1.0) Estimated GFR (Cockcroft-Gault) 68.7 BUN/Creatinine Ratio 14 (6-20) Glucose Level 98 mg/dL (70-99) Calcium Level 9.7 mg/dL (8.5-10.1) Phosphorus Level 3.6 mg/dL (2.6-4.7) Magnesium Level 1.8 mg/dL (1.8-2.4) Total Bilirubin 0.4 mg/dL (0.2-1.0) Aspartate Amino Transf (AST/SGOT) 24 U/L (15-37) Alanine Aminotransferase (ALT/SGPT) 23 U/L (14-59) Alkaline Phosphatase 239 U/L (46-116) Troponin I Quantitative < 0.017 ng/mL (0.000-0.055) ZN-Vtc-A-Type Natriuretic Peptide 1070 pg/mL (0-124) Total Protein 7.7 g/dL (6.4-8.2) Albumin 3.3 g/dL (3.4-5.0) Albumin/Globulin Ratio 0.8 (1.0-1.7) Urine Collection Type Unknown Urine Color Yellow Urine Clarity Clear Urine pH 6.5 (<5.0-8.0) Urine Specific [place] >=1.030 (1.000-1.030) Urine Protein Negative mg/dL (NEG-TRACE) Urine Glucose (UA) Negative mg/dL (NEG) Urine Ketones (Stick) Negative mg/dL (NEG) Urine Blood Small (NEG) Urine Nitrite Negative (NEG) Urine Bilirubin Negative (NEG) Urine Urobilinogen Dipstick 1.0 mg/dL (0.2 mg/dL) Urine Leukocyte Esterase Negative (NEG) Urine RBC 1-2 /HPF (0-2) Urine WBC Occ /HPF (0-4) Urine Squamous Epithelial Cells Mod /LPF Urine Bacteria Moderate /HPF (0-FEW) Images Images CTA chest, abdomen and pelvis without and with IV contrast. VASCULAR: Aortic valve replacement. Interval post endovascular graft placement from proximal aortic arch to the aortic hiatus. Large thrombosed excluded aneurysmal sac with including previously seen dissection flap in the distal aortic arch/proximal thoracic aorta measures approximately 4.1 cm. Faint contrast seen within the excluded aneurysmal sac along the medial aspect of the endovascular graft at the level of the aortic arch, supplied by small spinal arteries/veins (series 5 image 30). The ascending thoracic aorta is tortuous without dilatation. 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 The right brachiocephalic artery is patent. 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 The left vertebral artery likely arises from the true lumen. Abdominal aortic dissection extends from the distal edge of the endovascular stent to the level of the left renal artery origin. The celiac trunk and right renal artery are arising from the true lumen and appear patent. SMA arises from both true and false lumen with dissection flap extends to the mid/distal segment, unchanged since prior exam. Left renal artery and DELVIN are patent. Unchanged mild infrarenal abdominal aortic aneurysm measures up to 3.0 cm. New small dissections in the right distal common and right distal external iliac arteries. Moderate vascular calcifications involving bilateral common, internal and external iliac arteries without significant narrowing. Bilateral common femoral, and visualized femoral and superficial femoral arteries are patent. NONVASCULAR: Visualized thyroid and esophagus are unremarkable. No lymphadenopathy in the chest by size criteria. Cardiomegaly. No pericardial effusion. Pulmonary arteries are normal in caliber. Central airways are patent. Mild centrilobular and paraseptal emphysema in the upper lobes. Bibasilar subsegmental atelectasis versus scarring. No focal consolidation, pleural effusion or pneumothorax. No suspicious pulmonary nodule. Increasing size of right hepatic lobe cystic lesion, now demonstrates faint internal densities, measures 9.6 x 7.8 cm, previously 6.5 x 4.9 cm. Gallbladder, biliary ducts, spleen, pancreas and adrenals are unremarkable. No hydronephrosis or nephrolithiasis in either kidney. No bowel obstruction. No lymphadenopathy by size criteria. No pneumoperitoneum or ascites. Unremarkable urinary bladder. Hysterectomy changes. Multilevel changes in the spine. Median sternotomy wires. Small fat-containing umbilical hernia. Postsurgical changes in the right groin region. IMPRESSION: 1. Interval post endovascular graft placement from the proximal aortic arch to the aortic hiatus. Faint contrast seen within the excluded aneurysmal sac along the medial aspect of the graft at the level of the aortic arch, supplied by small spinal arteries/veins, likely type II endoleak. 2. Unchanged dissections and aneurysms of the great vessels and abdominal aorta as described in detail above. New small dissections in the right distal common and distal external iliac arteries. 3. Interval increase in size of right hepatic lobe cystic lesion, now measuring 9.6 cm, previously 6.5 cm. This cyst demonstrates faint internal densities, may reflect internal bleeding. Recommend further evaluation with abdominal ultrasound. VTE Prophylaxis Ordered VTE Prophylaxis Devices: No VTE Pharmacological Prophylaxi: Yes Assessment/Plan Assessment/Plan A/P: Chest pain - likely referred diaphragmatic pain from hepatic likely hemorrhagic cyst. Pain improved slightly with BP control, though, could also be due to her known dissection. Abdominal pain - due to hepatic lesion most likely, no other significant intrabdominal pathology. Will obtain RUQ US and consult general surgery, though surgical treatment would be complex given her aortic valve anticoagulation needs. 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 will monitor Subtherapeutic INR - 5mg warfarin. Goal INR 2.5-3.5 Anxiety - prn meds GERD - ppi HLD - statin HTN urgency - will cont coreg 25mg BID, prn hydralazine, losartan. May need to add amlodipine, goal BP <120mmHg AAA s/p repair 2013 S/p mechanical aortic valve repair - INR goal 2.5-3.5 Aortic dissection repair and revision with endograft revision repair 05/2020 - with known endoleak, no renal or abdominal arterial involvement FEN - regular diet PPX -warfarin, PPI FULL CODE Dispo - admit CVC Justifications for Admission Other Justification SUMIT SCHMITT MD Dec 06, 2020 18:34
[2020-12-06] MEDS ORDERED: CARVEDILOL 12.5 MG TABLET. ONE (18:35)
[2020-12-06] MEDS: CARVEDILOL 12.5 MG TABLET. PO SCH (18:37)
[2020-12-06] MEDS ORDERED: 0.9 % SODIUM CHLORIDE 10 ML DISP.SYRIN. IV PRN (18:45)
[2020-12-06] MEDS ORDERED: HYDROmorphone 2 MG/ML VIAL IVP PRN (18:45)
[2020-12-06] MEDS ORDERED: SENNOSIDES/DOCUSATE 8.6/50MG TABLET. PO PRN (18:45)
[2020-12-06] MEDS ORDERED: hydrALAZINE 20 MG/ML VIAL. IVP PRN (18:45)
[2020-12-06] MEDS ORDERED: ACETAMINOPHEN 325 MG TABLET. PO PRN (18:45)
[2020-12-06] MEDS ORDERED: ONDANSETRON PF 4 MG/2 ML VIAL. IVP PRN (18:45)
--- NOTE | 2020-12-06 19:04 | EKG ---
[facility] [address] [place] [address] Test Date: 2020-12-06 Test Time: 14:42:53 Pat Name: GINO CARLOS Department: Room: Gender: F [employer]: : [id number] Requested By: GAVIN MENDEZ Order Number: [id number] Reading MD: Tam Goldsmith Measurements Intervals [place] Rate: 81 P: 68 MT: 158 QRS: 48 QRSD: 72 T: 10 QT: 356 QTc: 419 Interpretive Statements SINUS RHYTHM LEFT ATRIAL ABNORMALITY Electronically Signed On 12-11-2020 12:51:32 CDT by Tam Goldsmith
[2020-12-06] MEDS: WARFARIN 5 MG TABLET. PO SCH (19:52)
[2020-12-06] MEDS: oxyCODONE/APAP 5/325 1 TAB TABLET PO PRN (19:52)
[2020-12-06] MEDS ORDERED: MAGNESIUM SULFATE 1GM 100 ML IV ONE (21:00)
[2020-12-06] MEDS: SERTRALINE 50 MG TABLET. PO SCH (21:10)
[2020-12-06] MEDS: PSYLLIUM HUSK (SUGAR FREE) 1 PKT PACKET PO SCH (21:11)
[2020-12-06] MEDS: ATORVASTATIN CALCIUM 40 MG TABLET. PO SCH (21:14)
[2020-12-06] MEDS: QUEtiapine 100 MG TABLET. PO SCH (21:14)
[2020-12-06] MEDS: fentaNYL PF VIAL 100 MCG/2 ML VIAL IVP PRN (23:33)
[2020-12-06 23:55] VITALS: BP 138/83
[2020-12-07] VITALS (20 sets, daily range): BP systolic 106–166; BP diastolic 56–92
[2020-12-07] MEDS: fentaNYL PF VIAL 100 MCG/2 ML VIAL IVP PRN ×4 (01:18→20:19)
[2020-12-07] MEDS: oxyCODONE/APAP 5/325 1 TAB TABLET PO PRN ×3 (02:44→15:57)
[2020-12-07 05:00] LABS: HEMATOCRIT 25.1 % (36.0-47.0); HEMOGLOBIN 8.2 g/dL (12.0-15.5); RED CELL DISTRIBUTION WIDTH 21.1 % (11.5-14.5); WHITE BLOOD COUNT 5.4 x10^3/uL (4.0-11.0)
[2020-12-07 05:09] LABS: PROTHROMBIN TIME PATIENT 23.5 SEC (11.7-14.0)
[2020-12-07 05:30] LABS: ALBUMIN 2.9 g/dL (3.4-5.0); ALBUMIN/GLOBULIN RATIO 0.7 (1.0-1.7); CALCIUM 9.7 mg/dL (8.5-10.1); GFR 68.7; POTASSIUM 3.6 mmol/L (3.5-5.1); TOTAL BILIRUBIN 0.3 mg/dL (0.2-1.0); TOTAL PROTEIN 7.3 g/dL (6.4-8.2)
[2020-12-07] MEDS: CARVEDILOL 12.5 MG TABLET. PO SCH ×2 (05:52→20:20)
--- NOTE | 2020-12-07 07:58 | RAD ---
INDICATION : Reason: Hepatic cyst/hemorrhage / Spl. Instructions: / History: COMPARISON: CT from previous day TECHNIQUE: Multiple ultrasound images obtained through the abdomen in grayscale and color. FINDINGS: Pancreas: Limited assessment secondary to overlying structures obscuring Liver: Echogenic parenchyma. Within the right lobe the liver there is a large 104 x 85 mm complex cys tic mass with internal complexity. Gallbladder: Gallbladder is distended at time of exam measuring up to 91 x 26 mm. IVC: Partially distended at level of liver. Common Bile Duct: Not dilated. Right Kidney: No hydronephrosis. IMPRESSION: * Complex cystic lesion within the right lobe the liver with internal echoes within. This appears i ncreased in size when compared prior exam and could be from hemorrhage within the previously identifi ed cyst at the right lobe the liver. It is difficult to exclude a solid component given the internal complexity and further workup option would include obtaining a follow-up exam to ensure no growth or if further evaluation is desired this time CT or MRI liver protocol. This is located near the liver capsule with small amount of adjacent fluid which could be from small amount of leakage into the subc apsular region. Electronically signed by: Goyo Berry MD (12/07/2020 7:56 AM) [id number]
--- NOTE | 2020-12-07 08:55 | PDOC2 ---
LISA ROSE [employer] 12/07/20 0855: CONSULT Date of Consult Date of Consult DATE: 12/07/20 TIME: 08:46 Reason for Consult Reason for Consult: liver cyst Referring Physician Referring Physician: Dr Whitman Identification/Chief Complaint Chief Complaint abdominal pain Source Source: Chart review, Patient History of Present Illness Reason for Visit: HX of mechanical aortic valve repair and aortic dissection repair and revision with endografter 05/2020. Admitted with RUQ/back pain since . ER spoke with for cardiac surgery to evaluate CTs and per cardiothoracic surgeon Dr. 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 Imaging was concerning for possible hemorrhage of known liver cyst Past Medical History Cardiovascular: CAD, HTN, Hyperlipidemia, Other Pulmonary: COPD CENTRAL NERVOUS SYSTEM: TIA GI: GERD Heme/Onc: Anemia NOS Hepatobiliary: No pertinent hx Psych: Anxiety Musculoskeletal: low back pain, Osteoarthritis Rheumatologic: Gout Infectious disease: No pertinent hx Renal/: Other Endocrine: No pertinent hx Past Surgical History Past Surgical History: Hysterectomy, Other Family History Family History: Cancer, Diabetes, Hypertension Social History Quit ALCOHOL: none Drugs: None Lives: with Family Current Problem List Problem List Problems Medical Problems: (1) Dissection of aorta Status: Acute (2) Hepatic cyst Status: Acute (3) Type II endoleak of aortic graft Status: Acute Current Medications Current Medications Current Medications Hydromorphone HCl (Dilaudid) 1 mg 1X ONCE IVP Last administered on 12/06/20at 15:26; Start 12/06/20 at 15:30; Stop 12/06/20 at 15:31; Status DC Esmolol HCl 250 ml @ 21.3 mls/hr 1X ONCE IV Last administered on 12/06/20at 15:40; Start 12/06/20 at 15:30; Stop 12/07/20 at 03:14; Status DC Esmolol HCl (Brevibloc) 35 mg 1X ONCE IVP Last administered on 12/06/20at 15:32; Start 12/06/20 at 15:30; Stop 12/06/20 at 15:31; Status DC Iohexol (Omnipaque 350 Mg/ml) 90 ml 1X ONCE IV Last administered on 12/06/20at 16:30; Start 12/06/20 at 15:45; Stop 12/06/20 at 15:46; Status DC Info (CONTRAST GIVEN -- Rx MONITORING) 1 each PRN DAILY PRN MC SEE COMMENTS; Start 12/06/20 at 16:00; Stop 12/08/20 at 15:59 Hydromorphone HCl (Dilaudid) 0.5 mg PRN Q1HR PRN IVP PAIN Last administered on 12/06/20at 18:19; Start 12/06/20 at 16:00; Stop 12/06/20 at 18:51; Status DC Quetiapine Fumarate (SEROquel) 100 mg QHS PO Last administered on 12/06/20at 21:14; Start 12/06/20 at 21:00 Warfarin Sodium (Coumadin) 5 mg DAILY16 PO Last administered on 12/06/20at 19:52; Start 12/06/20 at 19:00 Carvedilol (Coreg) 25 mg BID66 PO Last administered on 12/07/20at 05:52; Start 12/06/20 at 19:00 Carvedilol (Coreg) 12.5 mg STK-MED ONCE .ROUTE ; Start 12/06/20 at 18:35; Stop 12/06/20 at 18:35; Status DC Sodium Chloride (Normal Saline Flush) 3 ml QSHIFT PRN IV AFTER MEDS AND BLOOD DRAWS; Start 12/06/20 at 18:45 Hydralazine HCl (Apresoline Inj) 10 mg PRN Q4HRS PRN IVP ELEVATED BP, SEE COMMENTS; Start 12/06/20 at 18:45 Fentanyl Citrate (Fentanyl 2ml Vial) 25 mcg PRN Q3HRS PRN IVP SEVERE PAIN 7-10 Last administered on 12/07/20at 05:51; Start 12/06/20 at 18:45 Acetaminophen (Tylenol) 650 mg PRN Q6HRS PRN PO MILD PAIN / TEMP > 100.3'F; Start 12/06/20 at 18:45 Ondansetron HCl (Zofran) 4 mg PRN Q4HRS PRN IVP NAUSEA/VOMITING; Start 12/06/20 at 18:45 Warfarin Sodium (Coumadin Per Physician) 1 each PRN DAILY PRN MC SEE COMMENTS Last administered on 12/07/20at 07:48; Start 12/06/20 at 19:00 Hydromorphone HCl (Dilaudid) 0.5 mg PRN Q2HRS PRN IVP SEVERE PAIN, 2nd CHOICE; Start 12/06/20 at 18:45 Aspirin (Ecotrin) 81 mg DAILY PO ; Start 12/07/20 at 09:00 Atorvastatin Calcium (Lipitor) 40 mg QHS PO Last administered on 12/06/20at 21:14; Start 12/06/20 at 21:00 Losartan Potassium (Cozaar) 50 mg DAILY PO ; Start 12/07/20 at 09:00 Oxycodone/ Acetaminophen (Percocet 5/325) 1 tab PRN Q6HRS PRN PO MODERATE TO S EVERE PAIN Last administered on 12/07/20at 02:44; Start 12/06/20 at 18:45 Pantoprazole Sodium (Protonix) 40 mg DAILYAC PO ; Start 12/07/20 at 07:30 Sertraline HCl (Zoloft) 50 mg QHS PO ; Start 12/06/20 at 21:00 Tramadol HCl (Ultram) 50 mg PRN Q6HRS PRN PO MOD TO SEVERE PAIN, 2nd CHOICE; Start 12/06/20 at 18:45 Psyllium Hydrophilic Mucilloid (Metamucil Fiber Packet) 1 pkt QHS PO ; Start 12/06/20 at 21:00 Polyethylene Glycol (miraLAX PACKET) 17 gm DAILY PO ; Start 12/07/20 at 09:00 Senna/Docusate Sodium (Senna Plus) 2 tab PRN BID PRN PO CONSTIPATION; Start 12/06/20 at 18:45 Magnesium Sulfate/ Dextrose 100 ml @ 100 mls/hr 1X ONCE IV Last administered on 12/06/20at 21:14; Start 12/06/20 at 21:00; Stop 12/06/20 at 21:59; Status DC Influenza Virus Vaccine Quadrival (Flulaval Quad Syringe) 0.5 ml ONCE ONCE VAX IM ; Start 12/07/20 at 09:00; Stop 12/07/20 at 09:01 Active Scripts Active Percocet 5-325 Mg Tablet (Oxycodone/Acetaminophen) 1 Each Tablet 1 Tab PO PRN Q6HRS PRN Ventolin Hfa Inhaler (Albuterol Sulfate) 18 Gm Hfa.aer.ad 2 Puff INH Q4HRS PRN Zoloft (Sertraline Hcl) 50 Mg Tablet 50 Mg PO QHS Reported Carvedilol 25 Mg Tablet 1 Tab PO BID 30 Days Quetiapine Fumarate 100 Mg Tablet 1 Tab PO QHS 30 Days Atorvastatin Calcium 40 Mg Tablet 1 Tab PO QHS Xanax (Alprazolam) 1 Mg Tablet 1 Tab PO PRN QHS PRN Metoprolol Tartrate 25 Mg Tablet 25 Mg PO BID Losartan Potassium 50 Mg Tablet 50 Mg PO DAILY Zolpidem Tartrate 10 Mg Tablet 10 Mg PO PRN QHS PRN Warfarin Sodium 5 Mg Tablet 5 Mg PO DAILY16 Hydralazine Hcl 100 Mg Tablet 100 Mg PO BID Protonix (Pantoprazole Sodium) 40 Mg Tablet. 1 Tab PO DAILY Aspir 81 (Aspirin) 81 Mg Tablet.dr 81 Mg PO DAILY Allergies Allergies: Coded Allergies: morphine (Verified Adverse Reaction, Intermediate, HEADACHE, 12/07/20) Gives pt a bad [place]ALTON ROS General: YES: Fatigue; No: Chills PSYCHOLOGICAL ROS: No: Anxiety, Depression Eyes: No Blurry vision, No Double vision HEENT: No: Heacaches, Sore Throat Hematological and Lymphatic: YES: Bleeding Problems; No: Blood Clots Respiratory: No: Cough, Shortness of breath Cardiovascular: No Chest Pain, No Palpitations Gastrointestinal: Yes Nausea Genitourinary: No Dysuria, No Hematuria Musculoskeletal: No Joint Pain, No Muscle Pain Neurological: No Impaired Coord/balance, No Numbness/Tingling Skin: No Pruritus, No Rash Physical Exam General: Alert, Cooperative HEENT: Atraumatic, PERRLA Lungs: Clear to auscultation, Normal air movement Heart: Regular rate, Normal S1, Normal S2 Abdomen: Soft, Other (TTP RUQ mildly ) Extremities: No clubbing, No cyanosis Skin: No rashes, No breakdown Neuro: Normal gait, Normal speech Psych/Mental Status: Mental status NL, Mood NL MUSCULOSKELETAL: No deformity, No swelling Vitals VITALS Vital Signs Date Time Temp Pulse Resp B/P (MAP) Pulse Ox O2 Delivery O2 Flow Rate FiO2 12/07/20 06:00 72 14 147/88 (107) 95 Room Air 12/07/20 04:00 98.2 98.2 Labs Labs Laboratory Tests Test 12/06/20 14:50 12/06/20 16:58 10/3/21 04:30 White Blood Count 5.0 x10^3/uL (4.0-11.0) 5.4 x10^3/uL (4.0-11.0) Red Blood Count 3.34 x10^6/uL (3.50-5.40) 3.00 x10^6/uL (3.50-5.40) Hemoglobin 9.1 g/dL (12.0-15.5) 8.2 g/dL (12.0-15.5) Hematocrit 28.0 % (36.0-47.0) 25.1 % (36.0-47.0) Mean Corpuscular Volume 84 fL (79-100) 84 fL (79-100) Mean Corpuscular Hemoglobin 27 pg (25-35) 27 pg (25-35) Mean Corpuscular Hemoglobin Concent 33 g/dL (31-37) 33 g/dL (31-37) Red Cell Distribution Width 21.5 % (11.5-14.5) 21.1 % (11.5-14.5) Platelet Count 333 x10^3/uL (140-400) 308 x10^3/uL (140-400) Neutrophils (%) (Auto) 51 % (31-73) Lymphocytes (%) (Auto) 33 % (24-48) Monocytes (%) (Auto) 11 % (0-9) Eosinophils (%) (Auto) 3 % (0-3) Basophils (%) (Auto) 1 % (0-3) Neutrophils # (Auto) 2.6 x10^3/uL (1.8-7.7) Lymphocytes # (Auto) 1.7 x10^3/uL (1.0-4.8) Monocytes # (Auto) 0.6 x10^3/uL (0.0-1.1) Eosinophils # (Auto) 0.2 x10^3/uL (0.0-0.7) Basophils # (Auto) 0.0 x10^3/uL (0.0-0.2) Platelet Estimate Adequate (ADEQUATE) Polychromasia Slight Hypochromasia Slight Anisocytosis Mod Prothrombin Time 20.9 SEC (11.7-14.0) 23.5 SEC (11.7-14.0) Prothromb Time International Ratio 1.8 (0.8-1.1) 2.1 (0.8-1.1) D-Dimer (Tereza) 3.54 ug/mlFEU (0.00-0.50) Sodium Level 140 mmol/L (136-145) 137 mmol/L (136-145) Potassium Level 4.3 mmol/L (3.5-5.1) 3.6 mmol/L (3.5-5.1) Chloride Level 103 mmol/L (98-107) 102 mmol/L (98-107) Carbon Dioxide Level 29 mmol/L (21-32) 28 mmol/L (21-32) Anion Gap 8 (6-14) 7 (6-14) Blood Urea Nitrogen 14 mg/dL (7-20) 16 mg/dL (7-20) Creatinine 1.0 mg/dL (0.6-1.0) 1.0 mg/dL (0.6-1.0) Estimated GFR (Cockcroft-Gault) 68.7 68.7 BUN/Creatinine Ratio 14 (6-20) 16 (6-20) Glucose Level 98 mg/dL (70-99) 103 mg/dL (70-99) Calcium Level 9.7 mg/dL (8.5-10.1) 9.7 mg/dL (8.5-10.1) Phosphorus Level 3.6 mg/dL (2.6-4.7) Magnesium Level 1.8 mg/dL (1.8-2.4) Total Bilirubin 0.4 mg/dL (0.2-1.0) 0.3 mg/dL (0.2-1.0) Aspartate Amino Transf (AST/SGOT) 24 U/L (15-37) 16 U/L (15-37) Alanine Aminotransferase (ALT/SGPT) 23 U/L (14-59) 21 U/L (14-59) Alkaline Phosphatase 239 U/L (46-116) 202 U/L (46-116) Troponin I Quantitative < 0.017 ng/mL (0.000-0.055) GB-Uqs-M-Type Natriuretic Peptide 1070 pg/mL (0-124) Total Protein 7.7 g/dL (6.4-8.2) 7.3 g/dL (6.4-8.2) Albumin 3.3 g/dL (3.4-5.0) 2.9 g/dL (3.4-5.0) Albumin/Globulin Ratio 0.8 (1.0-1.7) 0.7 (1.0-1.7) Urine Collection Type Unknown Urine Color Yellow Urine Clarity Clear Urine pH 6.5 (<5.0-8.0) Urine Specific [place] >=1.030 (1.000-1.030) Urine Protein Negative mg/dL (NEG-TRACE) Urine Glucose (UA) Negative mg/dL (NEG) Urine Ketones (Stick) Negative mg/dL (NEG) Urine Blood Small (NEG) Urine Nitrite Negative (NEG) Urine Bilirubin Negative (NEG) Urine Urobilinogen Dipstick 1.0 mg/dL (0.2 mg/dL) Urine Leukocyte Esterase Negative (NEG) Urine RBC 1-2 /HPF (0-2) Urine WBC Occ /HPF (0-4) Urine Squamous Epithelial Cells Mod /LPF Urine Bacteria Moderate /HPF (0-FEW) Laboratory Tests Test 12/06/20 14:50 12/06/20 16:58 12/07/20 04:30 White Blood Count 5.0 x10^3/uL (4.0-11.0) 5.4 x10^3/uL (4.0-11.0) Red Blood Count 3.34 x10^6/uL (3.50-5.40) 3.00 x10^6/uL (3.50-5.40) Hemoglobin 9.1 g/dL (12.0-15.5) 8.2 g/dL (12.0-15.5) Hematocrit 28.0 % (36.0-47.0) 25.1 % (36.0-47.0) Mean Corpuscular Volume 84 fL (79-100) 84 fL (79-100) Mean Corpuscular Hemoglobin 27 pg (25-35) 27 pg (25-35) Mean Corpuscular Hemoglobin Concent 33 g/dL (31-37) 33 g/dL (31-37) Red Cell Distribution Width 21.5 % (11.5-14.5) 21.1 % (11.5-14.5) Platelet Count 333 x10^3/uL (140-400) 308 x10^3/uL (140-400) Neutrophils (%) (Auto) 51 % (31-73) Lymphocytes (%) (Auto) 33 % (24-48) Monocytes (%) (Auto) 11 % (0-9) Eosinophils (%) (Auto) 3 % (0-3) Basophils (%) (Auto) 1 % (0-3) Neutrophils # (Auto) 2.6 x10^3/uL (1.8-7.7) Lymphocytes # (Auto) 1.7 x10^3/uL (1.0-4.8) Monocytes # (Auto) 0.6 x10^3/uL (0.0-1.1) Eosinophils # (Auto) 0.2 x10^3/uL (0.0-0.7) Basophils # (Auto) 0.0 x10^3/uL (0.0-0.2) Platelet Estimate Adequate (ADEQUATE) Polychromasia Slight Hypochromasia Slight Anisocytosis Mod Prothrombin Time 20.9 SEC (11.7-14.0) 23.5 SEC (11.7-14.0) Prothromb Time International Ratio 1.8 (0.8-1.1) 2.1 (0.8-1.1) D-Dimer (Tereza) 3.54 ug/mlFEU (0.00-0.50) Sodium Level 140 mmol/L (136-145) 137 mmol/L (136-145) Potassium Level 4.3 mmol/L (3.5-5.1) 3.6 mmol/L (3.5-5.1) Chloride Level 103 mmol/L (98-107) 102 mmol/L (98-107) Carbon Dioxide Level 29 mmol/L (21-32) 28 mmol/L (21-32) Anion Gap 8 (6-14) 7 (6-14) Blood Urea Nitrogen 14 mg/dL (7-20) 16 mg/dL (7-20) Creatinine 1.0 mg/dL (0.6-1.0) 1.0 mg/dL (0.6-1.0) Estimated GFR (Cockcroft-Gault) 68.7 68.7 BUN/Creatinine Ratio 14 (6-20) 16 (6-20) Glucose Level 98 mg/dL (70-99) 103 mg/dL (70-99) Calcium Level 9.7 mg/dL (8.5-10.1) 9.7 mg/dL (8.5-10.1) Phosphorus Level 3.6 mg/dL (2.6-4.7) Magnesium Level 1.8 mg/dL (1.8-2.4) Total Bilirubin 0.4 mg/dL (0.2-1.0) 0.3 mg/dL (0.2-1.0) Aspartate Amino Transf (AST/SGOT) 24 U/L (15-37) 16 U/L (15-37) Alanine Aminotransferase (ALT/SGPT) 23 U/L (14-59) 21 U/L (14-59) Alkaline Phosphatase 239 U/L (46-116) 202 U/L (46-116) Troponin I Quantitative < 0.017 ng/mL (0.000-0.055) ZH-Stg-N-Type Natriuretic Peptide 1070 pg/mL (0-124) Total Protein 7.7 g/dL (6.4-8.2) 7.3 g/dL (6.4-8.2) Albumin 3.3 g/dL (3.4-5.0) 2.9 g/dL (3.4-5.0) Albumin/Globulin Ratio 0.8 (1.0-1.7) 0.7 (1.0-1.7) Urine Collection Type Unknown Urine Color Yellow Urine Clarity Clear Urine pH 6.5 (<5.0-8.0) Urine Specific [place] >=1.030 (1.000-1.030) Urine Protein Negative mg/dL (NEG-TRACE) Urine Glucose (UA) Negative mg/dL (NEG) Urine Ketones (Stick) Negative mg/dL (NEG) Urine Blood Small (NEG) Urine Nitrite Negative (NEG) Urine Bilirubin Negative (NEG) Urine Urobilinogen Dipstick 1.0 mg/dL (0.2 mg/dL) Urine Leukocyte Esterase Negative (NEG) Urine RBC 1-2 /HPF (0-2) Urine WBC Occ /HPF (0-4) Urine Squamous Epithelial Cells Mod /LPF Urine Bacteria Moderate /HPF (0-FEW) Assessment/Plan Assessment/Plan abdominal pain liver cyst, possible hemorrhage on anticoagulants for aortic valve repair and aortic dissection repair and revision with endografter 05/2020 will repeat Hgb at 12 close observations, suspect non-surgical--will review with LAKISHA Mcneal MD 12/07/20 1004: CONSULT Assessment/Plan Assessment/Plan Hemodynamically stable denies any abdominal pain at this time. Possible hemorrhagic cyst within the liver will follow H&H if acute changes consider MRI of the liver for further evaluation. Agree with [place] assessment plan LISA ROSE APRN Dec 07, 2020 08:55 LAKISHA OLEARY MD Dec 07, 2020 10:04
[2020-12-07] MEDS ORDERED: FLU VACC QUAD 21-22 (6MOS+) PF 0.5 ML SYRINGE. VAX IM ONE (09:00)
[2020-12-07] MEDS: POLYETHYLENE GLYCOL 3350 17 GM PACKET. PO SCH (09:00)
[2020-12-07] MEDS: PANTOPRAZOLE 40 MG TABLET.DR. PO SCH (09:27)
[2020-12-07] MEDS: ASPIRIN ENTERIC COATED 81 MG TABLET.DR. PO SCH (09:27)
[2020-12-07] MEDS: LOSARTAN POTASSIUM 50 MG TABLET. PO SCH (09:27)
[2020-12-07 12:00] LABS: HEMATOCRIT 27.1 % (36.0-47.0); HEMOGLOBIN 8.7 g/dL (12.0-15.5); RED BLOOD COUNT 3.22 x10^6/uL (3.50-5.40); RED CELL DISTRIBUTION WIDTH 21.2 % (11.5-14.5); WHITE BLOOD COUNT 4.3 x10^3/uL (4.0-11.0)
[2020-12-07] MEDS: traMADol 50 MG TABLET PO PRN ×2 (13:32→20:20)
--- NOTE | 2020-12-07 14:16 | PDOC ---
[employer] PROGRESS NOTE Date of Service DOS: DATE: 12/07/20 TIME: 14:15 Chief Complaint Chief Complaint Chest pain History of AAA repair History of mitral valve replacement Abdominal pain Anemia Subtherapeutic INR GERD Hyperlipidemia Hypertension Chest pain - likely referred diaphragmatic pain from hepatic likely hemorrhagic cyst. Pain improved slightly with BP control, though, could also be due to her known dissection. Abdominal pain - due to hepatic lesion most likely, no other significant intrabdominal pathology. Will obtain RUQ US and consult general surgery, though surgical treatment would be complex given her aortic valve anticoagulation needs. 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 will monitor Subtherapeutic INR - 5mg warfarin. Goal INR 2.5-3.5 Anxiety - prn meds GERD - ppi HLD - statin HTN urgency - will cont coreg 25mg BID, prn hydralazine, losartan. May need to add amlodipine, goal BP <120mmHg AAA s/p repair 2013 S/p mechanical aortic valve repair - INR goal 2.5-3.5 Aortic dissection repair and revision with endograft revision repair 05/2020 - with known endoleak, no renal or abdominal arterial involvement History of Present Illness History of Present Illness 12/07/2020 Patient seen and examined in the ICU Discussed with RN Chart reviewed INR 2.2 today Vitals/I&O Vitals/I&O: Vital Signs Date Time Temp Pulse Resp B/P (MAP) Pulse Ox O2 Delivery O2 Flow Rate FiO2 12/07/20 13:32 95 Room Air 12/07/20 13:32 72 166/88 12/07/20 13:00 14 12/07/20 12:00 98.7 98.7 I & O 12/06/20 12/06/20 12/07/20 15:00 23:00 07:00 Intake Total 250 ml Balance 250 ml Physical Exam General: Alert, Cooperative Heart: Regular rate, Normal S1, Normal S2 Lungs: Clear Abdomen: Soft, Other (TTP RUQ mildly ) Extremities: No clubbing, No cyanosis Skin: No rashes, No breakdown Labs Labs: Laboratory Tests Test 12/06/20 14:50 12/06/20 16:58 12/07/20 04:30 12/07/20 11:55 White Blood Count 5.0 x10^3/uL (4.0-11.0) 5.4 x10^3/uL (4.0-11.0) 4.3 x10^3/uL (4.0-11.0) Red Blood Count 3.34 x10^6/uL (3.50-5.40) 3.00 x10^6/uL (3.50-5.40) 3.22 x10^6/uL (3.50-5.40) Hemoglobin 9.1 g/dL (12.0-15.5) 8.2 g/dL (12.0-15.5) 8.7 g/dL (12.0-15.5) Hematocrit 28.0 % (36.0-47.0) 25.1 % (36.0-47.0) 27.1 % (36.0-47.0) Mean Corpuscular Volume 84 fL (79-100) 84 fL (79-100) 84 fL (79-100) Mean Corpuscular Hemoglobin 27 pg (25-35) 27 pg (25-35) 27 pg (25-35) Mean Corpuscular Hemoglobin Concent 33 g/dL (31-37) 33 g/dL (31-37) 32 g/dL (31-37) Red Cell Distribution Width 21.5 % (11.5-14.5) 21.1 % (11.5-14.5) 21.2 % (11.5-14.5) Platelet Count 333 x10^3/uL (140-400) 308 x10^3/uL (140-400) 348 x10^3/uL (140-400) Neutrophils (%) (Auto) 51 % (31-73) Lymphocytes (%) (Auto) 33 % (24-48) Monocytes (%) (Auto) 11 % (0-9) Eosinophils (%) (Auto) 3 % (0-3) Basophils (%) (Auto) 1 % (0-3) Neutrophils # (Auto) 2.6 x10^3/uL (1.8-7.7) Lymphocytes # (Auto) 1.7 x10^3/uL (1.0-4.8) Monocytes # (Auto) 0.6 x10^3/uL (0.0-1.1) Eosinophils # (Auto) 0.2 x10^3/uL (0.0-0.7) Basophils # (Auto) 0.0 x10^3/uL (0.0-0.2) Platelet Estimate Adequate (ADEQUATE) Polychromasia Slight Hypochromasia Slight Anisocytosis Mod Prothrombin Time 20.9 SEC (11.7-14.0) 23.5 SEC (11.7-14.0) Prothromb Time International Ratio 1.8 (0.8-1.1) 2.1 (0.8-1.1) D-Dimer (Tereza) 3.54 ug/mlFEU (0.00-0.50) Sodium Level 140 mmol/L (136-145) 137 mmol/L (136-145) Potassium Level 4.3 mmol/L (3.5-5.1) 3.6 mmol/L (3.5-5.1) Chloride Level 103 mmol/L (98-107) 102 mmol/L (98-107) Carbon Dioxide Level 29 mmol/L (21-32) 28 mmol/L (21-32) Anion Gap 8 (6-14) 7 (6-14) Blood Urea Nitrogen 14 mg/dL (7-20) 16 mg/dL (7-20) Creatinine 1.0 mg/dL (0.6-1.0) 1.0 mg/dL (0.6-1.0) Estimated GFR (Cockcroft-Gault) 68.7 68.7 BUN/Creatinine Ratio 14 (6-20) 16 (6-20) Glucose Level 98 mg/dL (70-99) 103 mg/dL (70-99) Calcium Level 9.7 mg/dL (8.5-10.1) 9.7 mg/dL (8.5-10.1) Phosphorus Level 3.6 mg/dL (2.6-4.7) Magnesium Level 1.8 mg/dL (1.8-2.4) Total Bilirubin 0.4 mg/dL (0.2-1.0) 0.3 mg/dL (0.2-1.0) Aspartate Amino Transf (AST/SGOT) 24 U/L (15-37) 16 U/L (15-37) Alanine Aminotransferase (ALT/SGPT) 23 U/L (14-59) 21 U/L (14-59) Alkaline Phosphatase 239 U/L (46-116) 202 U/L (46-116) Troponin I Quantitative < 0.017 ng/mL (0.000-0.055) TJ-Kyc-T-Type Natriuretic Peptide 1070 pg/mL (0-124) Total Protein 7.7 g/dL (6.4-8.2) 7.3 g/dL (6.4-8.2) Albumin 3.3 g/dL (3.4-5.0) 2.9 g/dL (3.4-5.0) Albumin/Globulin Ratio 0.8 (1.0-1.7) 0.7 (1.0-1.7) Urine Collection Type Unknown Urine Color Yellow Urine Clarity Clear Urine pH 6.5 (<5.0-8.0) Urine Specific [place] >=1.030 (1.000-1.030) Urine Protein Negative mg/dL (NEG-TRACE) Urine Glucose (UA) Negative mg/dL (NEG) Urine Ketones (Stick) Negative mg/dL (NEG) Urine Blood Small (NEG) Urine Nitrite Negative (NEG) Urine Bilirubin Negative (NEG) Urine Urobilinogen Dipstick 1.0 mg/dL (0.2 mg/dL) Urine Leukocyte Esterase Negative (NEG) Urine RBC 1-2 /HPF (0-2) Urine WBC Occ /HPF (0-4) Urine Squamous Epithelial Cells Mod /LPF Urine Bacteria Moderate /HPF (0-FEW) Assessment and Plan Assessmemt and Plan Problems Medical Problems: (1) Dissection of aorta Status: Acute (2) Hepatic cyst Status: Acute (3) Hypertension Status: Acute (4) Type II endoleak of aortic graft Status: Acute Chest pain - likely referred diaphragmatic pain from hepatic likely hemorrhagic cyst. Pain improved slightly with BP control, though, could also be due to her known dissection. Abdominal pain - due to hepatic lesion most likely, no other significant intrabdominal pathology. Will obtain RUQ US and consult general surgery, though surgical treatment would be complex given her aortic valve anticoagulation needs. 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 will monitor Subtherapeutic INR - 5mg warfarin. Goal INR 2.5-3.5 Anxiety - prn meds GERD - ppi HLD - statin HTN urgency - will cont coreg 25mg BID, prn hydralazine, losartan. May need to add amlodipine, goal BP <120mmHg AAA s/p repair 2013 S/p mechanical aortic valve repair - INR goal 2.5-3.5 Aortic dissection repair and revision with endograft revision repair 05/2020 - with known endoleak, no renal or abdominal arterial involvement Await further subspecialist input Trend labs ICU monitoring Home meds DVT prophylaxis Full code Prognosis guarded Comment Review of Relevant I have reviewed the following items brittani (where applicable) has been applied. Medications: Current Medications Medications (Trade) Dose Ordered Sig/Mario Alberto Route PRN Reason Start Time Stop Time Status Last Admin Dose Admin Hydromorphone HCl (Dilaudid) 1 mg 1X ONCE IVP 12/06/20 15:30 12/06/20 15:31 DC 12/06/20 15:26 Esmolol HCl 250 ml @ 21.3 mls/hr 1X ONCE IV 12/06/20 15:30 12/07/20 03:14 DC 12/06/20 15:40 Esmolol HCl (Brevibloc) 35 mg 1X ONCE IVP 12/06/20 15:30 12/06/20 15:31 DC 12/06/20 15:32 Iohexol (Omnipaque 350 Mg/ml) 90 ml 1X ONCE IV 12/06/20 15:45 12/06/20 15:46 DC 12/06/20 16:30 Hydromorphone HCl (Dilaudid) 0.5 mg PRN Q1HR PRN IVP PAIN 12/06/20 16:00 12/06/20 18:51 DC 12/06/20 18:19 Quetiapine Fumarate (SEROquel) 100 mg QHS PO 12/06/20 21:00 12/06/20 21:14 Warfarin Sodium (Coumadin) 5 mg DAILY16 PO 12/06/20 19:00 12/06/20 19:52 Carvedilol (Coreg) 25 mg BID66 PO 12/06/20 19:00 12/07/20 05:52 Hydralazine HCl (Apresoline Inj) 10 mg PRN Q4HRS PRN IVP ELEVATED BP, SEE COMMENTS 12/06/20 18:45 12/07/20 13:32 Fentanyl Citrate (Fentanyl 2ml Vial) 25 mcg PRN Q3HRS PRN IVP SEVERE PAIN 7-10 12/06/20 18:45 12/07/20 12:30 Warfarin Sodium (Coumadin Per Physician) 1 each PRN DAILY PRN MC SEE COMMENTS 12/06/20 19:00 12/07/20 07:48 Aspirin (Ecotrin) 81 mg DAILY PO 12/07/20 09:00 12/07/20 09:27 Atorvastatin Calcium (Lipitor) 40 mg QHS PO 12/06/20 21:00 12/06/20 21:14 Losartan Potassium (Cozaar) 50 mg DAILY PO 12/07/20 09:00 12/07/20 09:27 Oxycodone/ Acetaminophen (Percocet 5/325) 1 tab PRN Q6HRS PRN PO MODERATE TO SEVERE PAIN 12/06/20 18:45 12/07/20 09:26 Pantoprazole Sodium (Protonix) 40 mg DAILYAC PO 12/07/20 07:30 12/07/20 09:27 Tramadol HCl (Ultram) 50 mg PRN Q6HRS PRN PO MOD TO SEVERE PAIN, 2nd CHOICE 12/06/20 18:45 12/07/20 13:32 Magnesium Sulfate/ Dextrose 100 ml @ 100 mls/hr 1X ONCE IV 12/06/20 21:00 12/06/20 21:59 DC 12/06/20 21:14 Justifications for Admission Chest Pain Indications Hemodynamically unstable?: Yes Justification for admission: Patient hemodynamically unstable as indicated by persistent orthostatic vital signs changes ie fall of SBP of 20 mmHg or more OR fall in DBP of 10mmHg or more, 1 to 3 minutes after patient sits/stands from recumbent position. Other Justification JUAN MIGUEL REDDY III DO Dec 07, 2020 14:16
[2020-12-07] MEDS: WARFARIN 5 MG TABLET. PO SCH (17:25)
[2020-12-07] MEDS: ATORVASTATIN CALCIUM 40 MG TABLET. PO SCH (20:20)
[2020-12-07] MEDS: SERTRALINE 50 MG TABLET. PO SCH (20:20)
[2020-12-07] MEDS: QUEtiapine 100 MG TABLET. PO SCH (20:20)
[2020-12-07] MEDS: PSYLLIUM HUSK (SUGAR FREE) 1 PKT PACKET PO SCH (20:21)
[2020-12-08] MEDS: oxyCODONE/APAP 5/325 1 TAB TABLET PO PRN (02:07)
[2020-12-08 03:35] VITALS: BP 103/62
[2020-12-08 06:01] LABS: HEMATOCRIT 25.6 % (36.0-47.0); HEMOGLOBIN 8.4 g/dL (12.0-15.5); RED BLOOD COUNT 3.04 x10^6/uL (3.50-5.40); RED CELL DISTRIBUTION WIDTH 21.7 % (11.5-14.5); WHITE BLOOD COUNT 4.7 x10^3/uL (4.0-11.0)
[2020-12-08 06:47] LABS: PROTHROMBIN TIME PATIENT 27.1 SEC (11.7-14.0)
[2020-12-08 07:00] VITALS: BP 121/73
[2020-12-08] MEDS ORDERED: CARVEDILOL 12.5 MG TABLET. PO SCH (07:15)
[2020-12-08] MEDS: ASPIRIN ENTERIC COATED 81 MG TABLET.DR. PO SCH (07:52)
[2020-12-08] MEDS: PANTOPRAZOLE 40 MG TABLET.DR. PO SCH (07:53)
[2020-12-08] MEDS: LOSARTAN POTASSIUM 50 MG TABLET. PO SCH (07:54)
[2020-12-08] MEDS: traMADol 50 MG TABLET PO PRN (07:55)
--- NOTE | 2020-12-08 08:18 | PDOC ---
SURGICAL PROGRESS NOTE DATE: 12/08/20 TIME: 08:16 Subjective Patient doing quite well denies any abdominal pain would like to eat Vital Signs Vital Signs Date Time Temp Pulse Resp B/P (MAP) Pulse Ox O2 Delivery O2 Flow Rate FiO2 12/08/20 07:55 Room Air 12/08/20 07:54 80 121/73 12/08/20 03:35 99.0 20 93 99.0 I&O Intake and Output 12/08/20 07:00 Intake Total 440 ml Balance 440 ml Intake Oral 440 ml # Voids 10 # Bowel Movements 1 PATIENT HAS A KLINE: No General: Alert, Oriented X3, Cooperative, No acute distress Abdomen: Normal bowel sounds, Soft, No tenderness Labs Laboratory Tests Test 12/06/20 14:50 12/06/20 16:58 12/07/20 04:30 12/07/20 11:55 White Blood Count 5.0 x10^3/uL (4.0-11.0) 5.4 x10^3/uL (4.0-11.0) 4.3 x10^3/uL (4.0-11.0) Red Blood Count 3.34 x10^6/uL (3.50-5.40) 3.00 x10^6/uL (3.50-5.40) 3.22 x10^6/uL (3.50-5.40) Hemoglobin 9.1 g/dL (12.0-15.5) 8.2 g/dL (12.0-15.5) 8.7 g/dL (12.0-15.5) Hematocrit 28.0 % (36.0-47.0) 25.1 % (36.0-47.0) 27.1 % (36.0-47.0) Mean Corpuscular Volume 84 fL (79-100) 84 fL (79-100) 84 fL (79-100) Mean Corpuscular Hemoglobin 27 pg (25-35) 27 pg (25-35) 27 pg (25-35) Mean Corpuscular Hemoglobin Concent 33 g/dL (31-37) 33 g/dL (31-37) 32 g/dL (31-37) Red Cell Distribution Width 21.5 % (11.5-14.5) 21.1 % (11.5-14.5) 21.2 % (11.5-14.5) Platelet Count 333 x10^3/uL (140-400) 308 x10^3/uL (140-400) 348 x10^3/uL (140-400) Neutrophils (%) (Auto) 51 % (31-73) Lymphocytes (%) (Auto) 33 % (24-48) Monocytes (%) (Auto) 11 % (0-9) Eosinophils (%) (Auto) 3 % (0-3) Basophils (%) (Auto) 1 % (0-3) Neutrophils # (Auto) 2.6 x10^3/uL (1.8-7.7) Lymphocytes # (Auto) 1.7 x10^3/uL (1.0-4.8) Monocytes # (Auto) 0.6 x10^3/uL (0.0-1.1) Eosinophils # (Auto) 0.2 x10^3/uL (0.0-0.7) Basophils # (Auto) 0.0 x10^3/uL (0.0-0.2) Platelet Estimate Adequate (ADEQUATE) Polychromasia Slight Hypochromasia Slight Anisocytosis Mod Prothrombin Time 20.9 SEC (11.7-14.0) 23.5 SEC (11.7-14.0) Prothromb Time International Ratio 1.8 (0.8-1.1) 2.1 (0.8-1.1) D-Dimer (Tereza) 3.54 ug/mlFEU (0.00-0.50) Sodium Level 140 mmol/L (136-145) 137 mmol/L (136-145) Potassium Level 4.3 mmol/L (3.5-5.1) 3.6 mmol/L (3.5-5.1) Chloride Level 103 mmol/L (98-107) 102 mmol/L (98-107) Carbon Dioxide Level 29 mmol/L (21-32) 28 mmol/L (21-32) Anion Gap 8 (6-14) 7 (6-14) Blood Urea Nitrogen 14 mg/dL (7-20) 16 mg/dL (7-20) Creatinine 1.0 mg/dL (0.6-1.0) 1.0 mg/dL (0.6-1.0) Estimated GFR (Cockcroft-Gault) 68.7 68.7 BUN/Creatinine Ratio 14 (6-20) 16 (6-20) Glucose Level 98 mg/dL (70-99) 103 mg/dL (70-99) Calcium Level 9.7 mg/dL (8.5-10.1) 9.7 mg/dL (8.5-10.1) Phosphorus Level 3.6 mg/dL (2.6-4.7) Magnesium Level 1.8 mg/dL (1.8-2.4) Total Bilirubin 0.4 mg/dL (0.2-1.0) 0.3 mg/dL (0.2-1.0) Aspartate Amino Transf (AST/SGOT) 24 U/L (15-37) 16 U/L (15-37) Alanine Aminotransferase (ALT/SGPT) 23 U/L (14-59) 21 U/L (14-59) Alkaline Phosphatase 239 U/L (46-116) 202 U/L (46-116) Troponin I Quantitative < 0.017 ng/mL (0.000-0.055) FB-Oks-I-Type Natriuretic Peptide 1070 pg/mL (0-124) Total Protein 7.7 g/dL (6.4-8.2) 7.3 g/dL (6.4-8.2) Albumin 3.3 g/dL (3.4-5.0) 2.9 g/dL (3.4-5.0) Albumin/Globulin Ratio 0.8 (1.0-1.7) 0.7 (1.0-1.7) Urine Collection Type Unknown Urine Color Yellow Urine Clarity Clear Urine pH 6.5 (<5.0-8.0) Urine Specific [place] >=1.030 (1.000-1.030) Urine Protein Negative mg/dL (NEG-TRACE) Urine Glucose (UA) Negative mg/dL (NEG) Urine Ketones (Stick) Negative mg/dL (NEG) Urine Blood Small (NEG) Urine Nitrite Negative (NEG) Urine Bilirubin Negative (NEG) Urine Urobilinogen Dipstick 1.0 mg/dL (0.2 mg/dL) Urine Leukocyte Esterase Negative (NEG) Urine RBC 1-2 /HPF (0-2) Urine WBC Occ /HPF (0-4) Urine Squamous Epithelial Cells Mod /LPF Urine Bacteria Moderate /HPF (0-FEW) Test 12/08/20 03:35 White Blood Count 4.7 x10^3/uL (4.0-11.0) Red Blood Count 3.04 x10^6/uL (3.50-5.40) Hemoglobin 8.4 g/dL (12.0-15.5) Hematocrit 25.6 % (36.0-47.0) Mean Corpuscular Volume 84 fL (79-100) Mean Corpuscular Hemoglobin 28 pg (25-35) Mean Corpuscular Hemoglobin Concent 33 g/dL (31-37) Red Cell Distribution Width 21.7 % (11.5-14.5) Platelet Count 363 x10^3/uL (140-400) Prothrombin Time 27.1 SEC (11.7-14.0) Prothromb Time International Ratio 2.6 (0.8-1.1) Laboratory Tests Test 12/07/20 11:55 12/08/20 03:35 White Blood Count 4.3 x10^3/uL (4.0-11.0) 4.7 x10^3/uL (4.0-11.0) Red Blood Count 3.22 x10^6/uL (3.50-5.40) 3.04 x10^6/uL (3.50-5.40) Hemoglobin 8.7 g/dL (12.0-15.5) 8.4 g/dL (12.0-15.5) Hematocrit 27.1 % (36.0-47.0) 25.6 % (36.0-47.0) Mean Corpuscular Volume 84 fL (79-100) 84 fL (79-100) Mean Corpuscular Hemoglobin 27 pg (25-35) 28 pg (25-35) Mean Corpuscular Hemoglobin Concent 32 g/dL (31-37) 33 g/dL (31-37) Red Cell Distribution Width 21.2 % (11.5-14.5) 21.7 % (11.5-14.5) Platelet Count 348 x10^3/uL (140-400) 363 x10^3/uL (140-400) Prothrombin Time 27.1 SEC (11.7-14.0) Prothromb Time International Ratio 2.6 (0.8-1.1) Problem List Problems Medical Problems: (1) Dissection of aorta Status: Acute (2) Hepatic cyst Status: Acute (3) Hypertension Status: Acute (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 Patient has appointment at [facility] for vascular studies likely needs further work- up of her liver cyst would defer to [facility] hepatology clinic Justicifation of Admission Dx: Justifications for Admission: Justification of Admission Dx: N/A LAKISHA OLEARY MD Dec 08, 2020 08:18
[2020-12-08] MEDS: POLYETHYLENE GLYCOL 3350 17 GM PACKET. PO SCH (09:00)
[2020-12-08 10:48] VITALS: BP 136/73
--- NOTE | 2020-12-08 11:09 | PDOC3 ---
[facility]-Discharge Summary Date of Admission: Date of Admission: Dec 06, 2020 Date of Discharge: Date of Discharge: Dec 08, 2020 Admission Diagnosis: Problems: (1) Type II endoleak of aortic graft (2) Hypertension Discharge Diagnosis: Discharge Diagnosis: Same Consults: Consults: [place] Hospital Course: Hospital Course: Chief Complaint Chest pain History of AAA repair History of mitral valve replacement Abdominal pain Anemia Subtherapeutic INR GERD Hyperlipidemia Hypertension Chest pain - likely referred diaphragmatic pain from hepatic likely hemorrhagic cyst. Pain improved slightly with BP control, though, could also be due to her known dissection. Abdominal pain - due to hepatic lesion most likely, no other significant intrabdominal pathology. Will obtain RUQ US and consult general surgery, though surgical treatment would be complex given her aortic valve anticoagulation needs. 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 will monitor Subtherapeutic INR - 5mg warfarin. Goal INR 2.5-3.5 Anxiety - prn meds GERD - ppi HLD - statin HTN urgency - will cont coreg 25mg BID, prn hydralazine, losartan. May need to add amlodipine, goal BP <120mmHg AAA s/p repair 2013 S/p mechanical aortic valve repair - INR goal 2.5-3.5 Aortic dissection repair and revision with endograft revision repair 05/2020 - with known endoleak, no renal or abdominal arterial involvement History of Present Illness History of Present Illness Ms Echavarria is a 60 year old female w/ PMHx anemia, anxiety, GERD, HLD, HTN, AAA s/p repair 2013, s/p mechanical aortic valve repair and aortic dissection repair and revision with endografter 05/2020 who coms to ED c/o progressive right-sided chest pain radiating to her right shoulder. Patient says she woke u p with the pain on 12/04, and though she was dehydrated and having a "stitch" in her side and drinking fluids helped for a day, but the pain has been gradually getting worse. She states that nothing makes the pain better except for a little bit relieved by lying down flat. Previously treated for diffuse aortic dissection at [facility] May of 2020. She notes angioplasty of her "lower arteries" as well. Initial BP 179/78. With known history of aortic dissection patient placed on esmolol gtt to which she responded well. EKG sinus rhythm rate 81 bpm normal axes and intervals no ST elevation or depression no TWI Labs with WBC 5, Hb 9.1, platelets 333, INR 1.8, D-dimer 3.54, NA 140, K4.3, BUN 14, CR 1, alkaline phosphatase 239, albumin 3.3 otherwise LFTs within normal laboratory limits, magnesium 1.8, NT proBNP 1070, troponin 0, urinalysis small blood otherwise negative leuk esterase negative nitrites. CT chest abdomen pelvis with likely type II endoleak and unchanged dissections aneurysms of the great vessels with new small dissection in the right distal common interest external iliac arteries as well as an increase in size right hepatic lobe cystic lesion increased from 6.5 cm to 9.6 cm with possible internal hemorrhagic changes. ED physician, Dr. Sage consulted for cardiac surgery to evaluate CTs and per cardiothoracic surgeon Dr. 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 This recommend her following up outpatient and increasing her antihypertensive regimen. Admitted for further care. 12/07/2020 Patient seen and examined in the ICU Discussed with RN Chart reviewed INR 2.2 today 12/08 Evaluated at bedside. No complaints. D/c home today with f/u at previous CT surgeon. Disposition: Disposition/Orders: D/C to Home Activity: Activity: Resume previous activity Diet: Diet: Cardiac Medications: Home Meds Active Scripts Oxycodone/Apap 5-325 (PERCOCET 5-325 MG TABLET ) 1 Each Tablet, 1 TAB PO PRN Q6HRS PRN for PAIN, #25 TAB 0 Refills Prov:SERA ELENA MD 09/30/17 Albuterol Sulfate (VENTOLIN HFA INHALER) 18 Gm Hfa.aer.ad, 2 PUFF INH Q4HRS PRN for SHORTNESS OF BREATH, #1 INHALER 0 Refills Prov:MATILDE DODD MD 04/23/17 Sertraline Hcl (ZOLOFT) 50 Mg Tablet, 50 MG PO QHS, #30 TAB 1 Refill Prov:DILMA SWEENEY MD 12/03/13 Reported Medications Carvedilol (CARVEDILOL) 25 Mg Tablet, 1 TAB PO BID for HTN for 30 Days, #60 TAB 12/06/20 Quetiapine Fumarate (QUETIAPINE FUMARATE) 100 Mg Tablet, 1 TAB PO QHS for Mood for 30 Days, #30 12/06/20 Atorvastatin Calcium (ATORVASTATIN CALCIUM) 40 Mg Tablet, 1 TAB PO QHS for elevated cholesterol, #90 TAB 3 Refills 09/29/17 Alprazolam (XANAX) 1 Mg Tablet, 1 TAB PO PRN QHS PRN for ANXIETY / AGITATION, # 60 TAB 09/29/17 Losartan Potassium (LOSARTAN POTASSIUM) 50 Mg Tablet, 50 MG PO DAILY for htn, #90 08/14/16 Zolpidem Tartrate (ZOLPIDEM TARTRATE) 10 Mg Tablet, 10 MG PO PRN QHS PRN for INSOMNIA, #30 08/14/16 Warfarin Sodium (WARFARIN SODIUM) 5 Mg Tablet, 5 MG PO DAILY16 for mechanical aortic valve, #30 08/14/16 Hydralazine Hcl (HYDRALAZINE HCL) 100 Mg Tablet, 100 MG PO BID for htn, #90 01/01/16 Pantoprazole Sodium (PROTONIX ) 40 Mg Tablet.dr, 1 TAB PO DAILY for GERD, #30 TAB 5 Refills 02/20/14 Aspirin (ASPIR 81) 81 Mg Tablet.dr, 81 MG PO DAILY for blood thinner, TAB 02/01/14 Discontinued Reported Medications Metoprolol Tartrate (METOPROLOL TARTRATE) 25 Mg Tablet, 25 MG PO BID for htn, #180 08/14/16 Scheduled Aspirin (Aspir 81), 81 MG PO DAILY, (Reported) Atorvastatin Calcium (Atorvastatin Calcium), 1 TAB PO QHS, (Reported) Carvedilol (Carvedilol), 1 TAB PO BID, (Reported) Hydralazine Hcl (Hydralazine Hcl), 100 MG PO BID, (Reported) Losartan Potassium (Losartan Potassium), 50 MG PO DAILY, (Reported) Pantoprazole Sodium (Protonix ), 1 TAB PO DAILY, (Reported) Quetiapine Fumarate (Quetiapine Fumarate), 1 TAB PO QHS, (Reported) Sertraline Hcl (Zoloft), 50 MG PO QHS Warfarin Sodium (Warfarin Sodium), 5 MG PO DAILY16, (Reported) Scheduled PRN Albuterol Sulfate (Ventolin Hfa Inhaler), 2 PUFF INH Q4HRS PRN for SHORTNESS OF BREATH Alprazolam (Xanax), 1 TAB PO PRN QHS PRN for ANXIETY / AGITATION, (Reported) Oxycodone/Apap 5-325 (Percocet 5-325 Mg Tablet ), 1 TAB PO PRN Q6HRS PRN for PAIN Zolpidem Tartrate (Zolpidem Tartrate), 10 MG PO PRN QHS PRN for INSOMNIA, (Reported) Discontinued Medications Metoprolol Tartrate (Metoprolol Tartrate), 25 MG PO BID, (Reported) Justicifation of Admission Dx: Justifications for Admission: Justification of Admission Dx: N/A SUMIT OLIVIA MD Dec 08, 2020 11:09
--- NOTE | 2020-12-08 11:30 | NUR ---
SS following for discharge planning. SS reviewed pt chart and discussed with pt RN. Pt is from home and is currently on room air. Discharge order on the chart for home with self care.
[2020-12-08] MEDS ORDERED: OXYC1TAB15 PO (12:00)
--- NOTE | 2020-12-08 13:18 | NUR ---
Discharge Note: GINO CARLOS CADE Discharge instructions and discharge home medications reviewed with Patient and a copy given. All questions have been answered and understanding verbalized. The following instructions and handouts were given: Warfarin, abdominal pain Discontinued lines and drains: IV's and skin is intact. Patient discharged to home with by private vehicle.
== END 2020-12-08 12:55 | disposition home or self-care (01) ==
LOC: ER 14:35 → INTOOBSV 19:12 → ED HOLD 19:12 → 6 SOUTH 20:36 → 1 WEST ICU 12-07 00:22 → 6 SOUTH 12-07 18:36
PROVIDERS: ADMIT Internal Medicine; ATTEND Internal Medicine
DX: T82.330A Leakage of aortic (bifurcation) graft (replacement), initial encounter (principal); I97.89 Other postprocedural complications and disorders of the circulatory system, not elsewhere classified; I16.0 Hypertensive urgency; D64.9 Anemia, unspecified; E78.00 Pure hypercholesterolemia, unspecified; E78.5 Hyperlipidemia, unspecified; Z20.822 Contact with and (suspected) exposure to COVID-19; E86.0 Dehydration; F41.9 Anxiety disorder, unspecified; I10 Essential (primary) hypertension; I25.10 Atherosclerotic heart disease of native coronary artery without angina pectoris; K21.9 Gastro-esophageal reflux disease without esophagitis; J44.9 Chronic obstructive pulmonary disease, unspecified; R79.1 Abnormal coagulation profile; K76.89 Other specified diseases of liver; Z86.73 Personal history of transient ischemic attack (TIA), and cerebral infarction without residual deficits; Z79.01 Long term (current) use of anticoagulants; Z86.79 Personal history of other diseases of the circulatory system; Z87.891 Personal history of nicotine dependence; Z90.710 Acquired absence of both cervix and uterus; Z95.2 Presence of prosthetic heart valve; Z79.899 Other long term (current) drug therapy; Z23 Encounter for immunization; Y83.2 Surgical operation with anastomosis, bypass or graft as the cause of abnormal reaction of the patient, or of later complication, without mention of misadventure at the time of the procedure
CPT/HCPCS: 36415; 71275; 74174; 76705; 80053; 81001; 83735; 83880; 84100; 84484; 85025; 85027; 85379; 85610; 87086; 90471; 90686; 93005; 96365; 96366; 96367; 96375; 96376; 99285; G0378; J0360; J1170; J3010; J3475; J3490; Q9967; G0379